=== PATIENT | female | born 1950 | race Caucasian/White ===

== ENCOUNTER 2016-09-21 23:06 | Inpatient (IN) ==
[2016-09-21] MEDS ORDERED: Ipratropium/Albuterol Neb 3 ML IH ONE (23:09)
--- NOTE | 2016-09-21 23:21 | Emergency Department Note ---
Disposition Clinical Impression: HCAP (healthcare-associated pneumonia), Acute exacerbation of chronic obstructive pulmonary disease (COPD) Disposition: Admitted As Inpatient Time of Disposition: 05:26 SOB HPI - General Chief Complaint: ED Shortness of Breath/Dyspnea Stated Complaint: INDIRA Time Seen by Provider: 09/21/16 23:08 Source: patient Limitations: no limitations Nursing Notes Reviewed: Yes Vital Signs Reviewed: Yes - History of Present Illness 65-year-old female past medical history of lung cancer S/P lobectomy, COPD on 4 L home oxygen presents to the ED via EMS for worsening difficulty in breathing. Ongoing for the past 3 weeks worse today. Per EMS she was found to be on 10L NC with increased work of breathing. Reports sitting on the cough and got short of breath. Denies any recent fever or chills. Episodes of chest pain over the past 2 weeks which she reports is due to anxiety. Denies any history of cardiac ischemic disease. History of thoracic aneurysm. Denies any recent travel or illness. Last hospitalized beginning of this year for pneumonia for 2 weeks at [place]. - Related Data Home Medications Medication Instructions Recorded Confirmed Albuterol Neb [Proventil Neb] 2.5 mg IH Q4HR 03/05/16 05/07/16 Budesonide/Formoterol 160/4.5 2 puff IH BIDR 03/05/16 05/07/16 [Symbicort 160/4.5] Ipratropium/Albuterol Sulfate 2 puff IH DAILY 03/05/16 05/07/16 [Combivent Respimat Inhal [place]] Levothyroxine Sodium [Tirosint] 50 mcg PO DAILY 03/05/16 05/07/16 Metoprolol [Lopressor] 25 mg PO BID 03/05/16 05/07/16 Previous Rx's Medication Instructions Recorded Tiotropium [Spiriva] 18 mcg IH DAILYR #1 inh 03/12/16 TraMADol [Ultram] 50 mg PO Q8HR PRN #15 tablet 03/12/16 Alprazolam [Xanax 0.25 MG Tablet] 0.25 mg PO TID PRN 7 Days 04/21/16 Amlodipine [Norvasc] 5 mg PO DAILY #30 tablet 05/10/16 Levofloxacin 500 mg PO DAILY #10 tablet 05/10/16 Pravastatin Sodium [Pravachol] 40 mg PO HS #30 tablet 05/10/16 PredniSONE 60 mg PO DAILY 12 Days 05/10/16 Ticagrelor [Brilinta] 90 mg PO BID #30 tablet 05/10/16 Allergies Allergy/AdvReac Type Severity Reaction Status Date / Time clopidogrel [From Plavix] Allergy Itching Verified 09/11/15 15:17 codeine Allergy Itching Verified 09/11/15 15:17 All systems ED: reviewed and negative except as stated. Constitutional: Denies: fever, chills Cardiovascular: Reports: chest pain Respiratory: Reports: cough, dyspnea Gastrointestinal: Denies: abdominal pain, nausea, vomiting Neurological: Denies: headache, weakness Psychiatric: Reports: anxiety Past Medical History - Past Medical History Attestation: Yes The following information was validated with the patient. Source: patient Medical history: Reports: cancer, COPD, coronary artery disease, GI bleed, hypertension, other Surgical history: Reports: appendectomy, cancer surgery, cholecystectomy, SHERICE/ BSO, other Psychiatric history: Reports: anxiety PLATE STACKER history: Reports: no PLATE STACKER history - Social History Smoking Status: Current every day smoker Smokeless Tobacco Status: No Alcohol use: Reports: none Drug use: Reports: none Physical Exam - General Limitations: no limitations General appearance: alert, in no apparent distress - Head Head exam: atraumatic, normocephalic, normal inspection - Eye Eye exam: Present: normal appearance, PERRL, EOMI - ENT ENT exam: other (on CPAP) - Neck Neck exam: Present: normal inspection, full ROM, trachea midline - Chest Chest inspection: Present: normal inspection, symmetric chest wall rise. Absent : tenderness - Respiratory Respiratory exam: Present: respiratory distress (on CPAP), wheezes, other ( COARSE breath sounds bilaterally) - Cardiovascular Cardiovascular exam: Present: regular rate, normal rhythm, normal heart sounds - Abdominal Exam Abdominal exam: Present: soft, Non-Tender, normal bowel sounds. Absent: tenderness, distention, guarding, rebound, rigidity - Extremities Exam Extremities exam: Present: normal inspection, full ROM, normal capillary refill. Absent: tenderness, pedal edema, calf tenderness - Neurological Exam Neurological exam: Present: alert, oriented X3 - Psychiatric Psychiatric exam: Present: normal affect, normal mood - Skin Skin exam: Present: warm, dry, intact, normal color Course Course Narrative: 65-year-old female history of lung cancer and COPD on 4 L home oxygenation presents a DVD with shortness of breath. She initially was found by EMS with increased worker breathing shortness of breath on 10 L nasal cannula satting 60% . She was placed on CPAP via EMS saturation improvements to 90s. After 3 continuous tuna treatments patients oxygenation in the 87%. Patient has course breath sounds bilaterally. Denies any history of blood clots. Concern for COPD exacerbation and possible pneumonia. We will get a septic workup with blood cultures and urine cultures. Chest x-ray ordered. - Reevaluation(s) Reevaluation #1: Patient continues to be on CPAP. She is tolerating it well. Oxygen saturation remains in the low 90s. Leukocytosis 15. Chest x-ray interpreted by radiologist and reviewed by myself reveals right mid to lower pneumonia. Concern for PE and infarction is less likely with CXR findings and CT to R/O PE is not warranted. Patient was recently hospitalized within the last 3 months. Impression healthcare associated pneumonia. Will treat with triple antibiotics Zosyn, vancomycin, Levaquin. Time: 00:42 - Consultations Consultation #1: Spoke with henny Dickinson to admit for HCAP. On Vanc, Zosyn, and Levaquin. Patient is currently on BiPAP 12/60%. Vital Signs Temperature 0 F L 09/21/16 23:08 Pulse Rate 84 09/21/16 23:08 Respiratory Rate 24 09/21/16 23:08 Blood Pressure 143/103 09/21/16 23:08 O2 Sat by Pulse Oximetry 100 09/21/16 23:08 Temperature 0 F L 09/21/16 23:08 Pulse Rate 79 09/21/16 23:53 Respiratory Rate 0 09/22/16 05:09 Blood Pressure 0/0 09/22/16 05:09 O2 Sat by Pulse Oximetry 97 09/22/16 00:11 Oxygen Delivery Oxygen Delivery Bipap Shortness of Breath/Dyspnea - Medical Records Medical records reviewed: Yes I reviewed the patient's medical records. - Lab Data Lab results reviewed: Yes I reviewed the patient's lab results. Result diagrams: 09/21/16 23:40 09/21/16 23:40 Lab Results 09/21/16 09/21/16 09/21/16 Range/Units 23:40 23:40 23:40 WBC 15.0 H (4.3-11.1) K/mcL RBC 3.49 L (3.82-4.97) M/mcL Hgb 9.9 L (11.5-15.4) g/dL Hct 33.0 L (35.3-44.9) % MCV 94.6 (83.0-100.0) fL MCH 28.4 (28.0-33.3) pg MCHC 30.0 L (31.6-35.5) g/dL RDW 14.6 H (11.5-14.5) % Plt Count 352 (140-400) K/mcL MPV 9.1 L (9.4-12.4) fL Immature Gran % 1.1 (0-4) % Seg Neutrophils % 86.7 % Lymphocytes % 5.6 % Monocytes % 4.2 % Eosinophils % 2.1 % Basophils % 0.3 % Neutrophils # 13.0 H (1.6-8.9) K/mcL Lymphocytes # 0.8 (0.6-4.6) K/mcL Monocytes # 0.6 (0.0-1.3) K/mcL Eosinophils # 0.3 (0.0-0.6) K/mcL Basophils # 0.1 (0.0-0.2) K/mcL VBG pH (7.32-7.42) pH Units VBG pCO2 (41-51) mmHg VBG pO2 (25-40) mmHg VBG HCO3 (21-27) mEq/L Sodium 136 (136-145) mEq/L Potassium 4.2 (3.5-4.5) mEq/L Chloride 94 L (98-109) mEq/L Carbon Dioxide 35 H (19-29) mEq/L BUN 7 (7-20) mg/dL Creatinine 0.75 (0.57-1.11) mg/dL Est GFR ( Amer) > 60 (> 60) Est GFR (Non-Af Amer) > 60 (> 60) BUN/Creatinine Ratio 9 (6-26) Glucose 168 H (70-99) mg/dL Calculated Osmolality 284 (280-300) Calcium 8.7 (8.6-10.8) mg/dL Troponin I 0.01 (0-0.03) ng/mL 09/21/16 Range/Units 23:40 WBC (4.3-11.1) K/mcL RBC (3.82-4.97) M/mcL Hgb (11.5-15.4) g/dL Hct (35.3-44.9) % MCV (83.0-100.0) fL MCH (28.0-33.3) pg MCHC (31.6-35.5) g/dL RDW (11.5-14.5) % Plt Count (140-400) K/mcL MPV (9.4-12.4) fL Immature Gran % (0-4) % Seg Neutrophils % % Lymphocytes % % Monocytes % % Eosinophils % % Basophils % % Neutrophils # (1.6-8.9) K/mcL Lymphocytes # (0.6-4.6) K/mcL Monocytes # (0.0-1.3) K/mcL Eosinophils # (0.0-0.6) K/mcL Basophils # (0.0-0.2) K/mcL VBG pH 7.30 L (7.32-7.42) pH Units VBG pCO2 84 H (41-51) mmHg VBG pO2 47 H (25-40) mmHg VBG HCO3 41.3 H (21-27) mEq/L Sodium (136-145) mEq/L Potassium (3.5-4.5) mEq/L Chloride (98-109) mEq/L Carbon Dioxide (19-29) mEq/L BUN (7-20) mg/dL Creatinine (0.57-1.11) mg/dL Est GFR ( Amer) (> 60) Est GFR (Non-Af Amer) (> 60) BUN/Creatinine Ratio (6-26) Glucose (70-99) mg/dL Calculated Osmolality (280-300) Calcium (8.6-10.8) mg/dL Troponin I (0-0.03) ng/mL - Radiology Data Radiology results reviewed: Yes I reviewed the patient's radiology results. Images interpreted by radiologists and review by myself consistent with pneumonia Chest X-Ray 09/21/16 23:09 IMPRESSION: Persistent and increased parenchymal disease right mid and lower lobe. This could represent chronic or recurring pneumonia and is superimposed upon moderate COPD with fibrosis and severe emphysema greater on the right. Some of this could be due to compressive affects from severe emphysema as well. D/ / Nilson Mckeon MD / Nilson Mckeon MD Interpreting Provider: Nilson Mckeon MD - EKG Data EKG attestation: Yes I reviewed and interpreted this EKG. Attestation Statement - Attestation Attestation: I examined this patient and my medical decision-making was reviewed with the Resident Physician. I agree with the documented findings, disposition and treatment plan as described except to the extent set forth below. Cough, SOB. Sig improvement with CPAP and nebs provided by EMS. Has coarse BS b /l w wheezing. CXR c/w pneumonia, which fits the clinical picture. I do not suspect a PE, and given her CXR findings which would be difficult to attribute to infarction rather than pneumonia, I am comfortable with the dx of health- care associated pneumonia and with my conclusion that a CTPA is not warranted.
[2016-09-21 23:46] LABS: VBG HCO3 41.3 mEq/L (21-27); VBG PH 7.3 pH Units (7.32-7.42)
[2016-09-21 23:48] LABS: Basophils # 0.1 K/mcL (0.0-0.2); Basophils % 0.3 %; Eosinophils # 0.3 K/mcL (0.0-0.6); Eosinophils % 2.1 %; Hemoglobin 9.9 g/dL (11.5-15.4); Immature Granulocytes % 1.1 % (0-4); Lymphocytes # 0.8 K/mcL (0.6-4.6); Lymphocytes % 5.6 %; Mean Corpuscular Hemoglobin 28.4 pg (28.0-33.3); Mean Corpuscular Volume 94.6 fL (83.0-100.0); Mean Platelet Volume 9.1 fL (9.4-12.4); Monocytes # 0.6 K/mcL (0.0-1.3); Monocytes % 4.2 %; Platelet Count 352 K/mcL (140-400); Red Blood Count 3.49 M/mcL (3.82-4.97); Red Cell Distribution Width 14.6 % (11.5-14.5); Segmented Neutrophils % 86.7 %
[2016-09-21 23:59] LABS: BUN/Creatinine Ratio 9 (6-26); Blood Urea Nitrogen 7 mg/dL (7-20); Calcium 8.7 mg/dL (8.6-10.8); Carbon Dioxide 35 mEq/L (19-29); Chloride 94 mEq/L (98-109); Glucose 168 mg/dL (70-99); Osmolality,Calculated 284 (280-300); Potassium 4.2 mEq/L (3.5-4.5); Sodium 136 mEq/L (136-145); eGFR For African Americans > 60 (> 60); eGFR For Non-African Americans > 60 (> 60)
[2016-09-22] MEDS ORDERED: *HR* LORazepam 2 MG/ML VIAL IVP ONE (00:05)
[2016-09-22] MEDS ORDERED: Piperacillin/Tazobactam 4.5 GM in D5% in Water (Mini-Bag+) 100 ML IVPB ONE (00:40)
[2016-09-22] MEDS ORDERED: Vancomycin 750 MG in D5% in Water 250 ML IVPB ONE (00:40)
[2016-09-22] MEDS ORDERED: Levofloxacin 750 MG/150 ML 750 MG/150 ML BAG IVPB ONE (00:40)
--- NOTE | 2016-09-22 04:52 | Internal Med History&Physical ---
<Fabricio Hdz - Last Filed: 09/22/16 04:49> Date of Encounter: 09/22/16 Time of Encounter: 04:50 Assessment and Plan (1) Acute and chronic respiratory failure Current visit: No Status: Acute Likely secondary to COPD exacerbation and likely recurrent HCAP Continue her on BiPAP as she is requiring FiO2 of 60% to maintain saturations above 90% She will be transitioned back to nasal cannula once more stable Obtain CT chest without contrast in case she does have recurrence of her lung cancer Possible pulmonary consult depending on results of CT scan Qualifiers: Respiratory failure complication: hypoxia and hypercapnia Qualified Code(s) : J96.21 - Acute and chronic respiratory failure with hypoxia; J96.22 - Acute and chronic respiratory failure with hypercapnia (2) Acute exacerbation of chronic obstructive pulmonary disease (COPD) Current visit: No Status: Acute Given her increased oxygen demands, increased sputum production, she likely has exacerbation of her COPD Will start her on IV steroids with Solumedrol 40 mg q8hr Continue her home breathing treatments as scheduled along with PRN nebulizers and BiPAP overnight, will try to transition her back to NC once more stable (3) HCAP (healthcare-associated pneumonia) Current visit: No Status: Acute She states she was hospitalized with pneumonia in the beginning of the year, at least within 90 days which qualifies her for HCAP Right lower lobe consolidation seen on CXR was also present in last CXR in 2015 suggesting underlying scarring or anatomical dysfunction causing this recurrence She was given one dose of Zosyn while in ED, will continue along with Vancomycin and Levaquin Collect sputum and blood cultures, await sensitivities prior to de-escalation (4) Hypertension Current visit: No Status: Acute Blood pressures upon admission Will continue home Norvasc and Metoprolol Qualifiers: Hypertension type: essential hypertension Qualified Code(s): I10 - Essential (primary) hypertension (5) CAD (coronary artery disease) Current visit: No Status: Chronic Stable, no current chest pain Will continue home dose of ASA, Brillinta, Metoprolol, and Pravastatin Qualifiers: Coronary Disease-Associated Artery/Lesion type: [place] artery [place] vs. transplanted heart: [place] heart Associated angina: without angina Qualified Code(s): I25.10 - Atherosclerotic heart disease of [place] coronary artery without angina pectoris (6) DVT prophylaxis Current visit: No Status: Acute Lovenox Internal Medicine - H&P: HPI Chief complaint: shortness of breath Admitted From: Home Plans for Post Hospital Care: Home History of present illness: Ms. Mckeon is a 65 year old female who presents to the emergency department with a 3 week history of progressive shortness of breath. She said this has worsened severely yesterday and she came to the ED. She states that she has been having productive cough with brown sputum during this time also claims to have a small amount of blood tinged sputum. She does endorse shortness of breath at rest but has improved since coming into the emergency department. She also complains of chronic constipation and has had nausea recently. She does have a history of COPD and is on 4 L of oxygen throughout the day and has been taking her inhalers which have not really helped her. She was diagnosed with lung cancer roughly 3 or 4 years ago, and had a lobectomy on the right side. She was previously on chemotherapy and radiation but has not had any treatments for over a year. Patient currently denies any pain, vomiting, fever. Past Med Surg Social Fam HX - Past Medical History Medical history: cancer, COPD, coronary artery disease, GI bleed, hypertension, other Psychiatric history: anxiety - Past Surgical History Surgical History: appendectomy, cancer surgery, cholecystectomy, SHERICE/BSO, other - Social History Smoking Status: Current every day smoker Smokeless Tobacco Status: No Alcohol use: none Drug use: none - Family History Mother Adopted: No Living Status: Hx Family Cardiac Disorders: No Hx Family Respiratory Disorders: Yes (COPD) Hx Family Cancer: No Hx Family GI Disorders: No Hx Family Endocrine Disorder: No Hx Family Neuromuscular Disorders: No Hx Family Neurologic Disorders: No Hx Family HEENT Disorders: No Hx Family Autoimmune Disorders: No Father Adopted: No Living Status: Hx Family Cardiac Disorders: No Hx Family Respiratory Disorders: No Hx Family Cancer: No Hx Family GI Disorders: No Hx Family Endocrine Disorder: No Hx Family Neuromuscular Disorders: No Hx Family Neurologic Disorders: No Hx Family HEENT Disorders: No Hx Family Autoimmune Disorders: No Sister Adopted: No Living Status: Still Living Hx Family Cardiac Disorders: No Hx Family Respiratory Disorders: No Hx Family Cancer: No Hx Family GI Disorders: No Hx Family Endocrine Disorder: No Hx Family Neuromuscular Disorders: No Hx Family Neurologic Disorders: Yes (MS) Hx Family HEENT Disorders: No Hx Family Autoimmune Disorders: No Brother Adopted: No Living Status: Still Living Hx Family Cardiac Disorders: No Hx Family Respiratory Disorders: No Hx Family Cancer: No Hx Family GI Disorders: No Hx Family Endocrine Disorder: No Hx Family Neuromuscular Disorders: No Hx Family Neurologic Disorders: No Hx Family HEENT Disorders: No Hx Family Autoimmune Disorders: No Internal Medicine - H&P: Meds Albuterol Neb [Proventil Neb] 2.5 mg IH Q4HR 03/05/16 [History] Budesonide/Formoterol 160/4.5 [Symbicort 160/4.5] 2 puff IH BIDR 03/05/16 [ History] Ipratropium/Albuterol Sulfate [Combivent Respimat Inhal [place]] 2 puff IH DAILY 03/05/16 [History] Levothyroxine Sodium [Tirosint] 50 mcg PO DAILY 03/05/16 [History] Metoprolol [Lopressor] 25 mg PO BID 03/05/16 [History] Tiotropium [Spiriva] 18 mcg IH DAILYR #1 inh 03/12/16 [Rx] TraMADol [Ultram] 50 mg PO Q8HR PRN #15 tablet 03/12/16 [Rx] Alprazolam [Xanax 0.25 MG Tablet] 0.25 mg PO TID PRN 7 Days 04/21/16 [Rx] Amlodipine [Norvasc] 5 mg PO DAILY #30 tablet 05/10/16 [Rx] Levofloxacin 500 mg PO DAILY #10 tablet 05/10/16 [Rx] Pravastatin Sodium [Pravachol] 40 mg PO HS #30 tablet 05/10/16 [Rx] PredniSONE 60 mg PO DAILY 12 Days 05/10/16 [Rx] Ticagrelor [Brilinta] 90 mg PO BID #30 tablet 05/10/16 [Rx] Allergies clopidogrel [From Plavix] Allergy (Verified 09/22/16 08:27) Itching codeine Allergy (Verified 09/22/16 08:27) Itching All Systems PM: A 10-system review of systems was performed and is negative for pertinent findings except as documented above in the HPI. - Constitutional Constitutional: weakness, no chills, no fever(s), no night sweats - EENT Eyes: no change in vision, no discharge, no pain, no photophobia Ears: no ear discharge, no ear pain, no tinnitus Nose, mouth and throat: no dysphagia, no nasal discharge, no neck pain, no sore throat - Cardiovascular Cardiovascular ROS IM: dyspnea, no chest pain, no diaphoresis, no lightheadedness, no palpitations, no syncope - Respiratory Respiratory: dyspnea, hemoptysis, dyspnea on exertion, wheezing, pain with cough , no cough, no excessive phlegm production - Gastrointestinal Gastrointestinal: constipation, nausea, no abdominal pain, no diarrhea, no hematemesis, no hematochezia, no melena, no vomiting - Genitourinary Genitourinary: no change in urinary stream, no dysuria, no flank pain, no hematuria - Musculoskeletal Musculoskeletal ROS IM: no numbness, no tingling - Integumentary Integumentary IM: no rash, no unusual bruising - Neurological Neurological ROS: no confusion, no convulsions, no focal weakness, no numbness, no tingling, no tremor(s) - Hematologic/Lymphatic Hematologic/Lymphatic: no easy bruising - Constitutional Vitals: Temp Pulse Resp BP Pulse Ox 0 F L 79 24 109/81 97 09/21/16 23:08 09/21/16 23:53 09/21/16 23:53 09/21/16 23:53 09/22/16 00:11 General appearance: Present: cooperative, A&O X 3, pleasant, no acute distress ( breathing comfortably on BiPAP), answers questions appropriately - Head Head exam: Present: atraumatic, normocephalic - Eye Eye exam: Present: PERRL, conjuntiva pink, sclera anicteric - Neck Neck exam general surgery: Present: supple, trachea midline. Absent: lymphadenopathy - Respiratory Respiratory exam: Present: decreased breath sounds (on RUL), wheezes. Absent: accessory muscle use, rales, rhonchi - Cardiovascular Cardiovascular exam: Present: RRR, +S1, +S2. Absent: diastolic murmur, gallop, rubs, systolic murmur - GI/Abdominal GI/Abdominal exam: Present: normal bowel sounds, soft, no peritoneal signs. Absent: distended, tenderness - Extremities Exam Extremities exam: Present: warm, radial pulses palpable and symetrical. Absent : calf tenderness, cyanotic, pedal edema - Neurological Exam Neurological exam: Present: alert, oriented X3, no focal deficits. Absent: facial droop, speech deficit - Skin Skin exam: Present: dry, intact Internal Med - H&P Results - Labs CBC & Chem 7: 09/21/16 23:40 09/21/16 23:40 Labs: Short CBC 09/21/16 Range/Units 23:40 WBC 15.0 H (4.3-11.1) K/mcL Hgb 9.9 L (11.5-15.4) g/dL Hct 33.0 L (35.3-44.9) % Plt Count 352 (140-400) K/mcL Neutrophils # 13.0 H (1.6-8.9) K/mcL BMP 09/21/16 23:40 Sodium 136 Potassium 4.2 Chloride 94 L Carbon Dioxide 35 H BUN 7 Creatinine 0.75 Glucose 168 H Calcium 8.7 Cardiac Enzymes 09/21/16 Range/Units 23:40 Troponin I 0.01 (0-0.03) ng/mL - ABG Interpretation ABG results: 09/21/16 23:40 VBG pH 7.30 L VBG pCO2 84 H VBG pO2 47 H VBG HCO3 41.3 H - Impressions ITS Impressions Chest X-Ray 09/21/16 23:09 IMPRESSION: Persistent and increased parenchymal disease right mid and lower lobe. This could represent chronic or recurring pneumonia and is superimposed upon moderate COPD with fibrosis and severe emphysema greater on the right. Some of this could be due to compressive affects from severe emphysema as well. D/ / Nilson Mckeon MD / Nilson Mckeon MD Interpreting Provider: Nilson Mckeon MD <Jesse Mcintosh R - Last Filed: 09/22/16 09:24> Date of Encounter: 09/22/16 Internal Medicine - H&P: HPI History of present illness: Ms. Mckeon is a 65 year old female All Systems PM: A 10-system review of systems was performed and is negative for pertinent findings except as documented above in the HPI. - Constitutional Vitals: Temp Pulse Resp BP Pulse Ox 98.7 F 100 18 167/75 98 09/22/16 06:50 09/22/16 06:50 09/22/16 08:20 09/22/16 06:50 09/22/16 08:20 Internal Med - H&P Results - Labs CBC & Chem 7: 09/22/16 05:30 09/22/16 05:30 - Attending Attestation I performed a history and physical examination of the patient and discussed his management with the Resident/Location Worker (Dr Stockton). I reviewed the residents note and agree with the documented findings and plan of care, with additions as below. 65 Y/F With History of COPD, chronic respiratory failure on home oxygen, prior history of lung cancer status post right lobectomy, CAD. She presents with worsening shortness of breath and cough with sputum production. She required BiPAP therapy in the ER. O/E: B/L wheeze present Chest x-ray reported a persistent and increased parenchymal disease in the right middle and lower lobes. This could represent chronic or recurring pneumonia superimposed on moderate COPD with fibrosis and severe emphysema greater on the right. Leucocytosis present. A/P: - Pneumonia / HCAP: Suspect recurrent pneumonia (pt apparently completed the course of antibiotics for pneumonia recently - we will obtain records from [facility] in [place]). I have a concern that patient may have recurrent pneumonia, and will need to exclude endobronchial lesion (with possible post obstructive pneumonia). Will obtain CT chest. Treat with levofloxacin, zosyn and vancomycin. - Acute exacerbation of COPD: Continue antibiotics, bronchodilators and methylprednisolone - Acute on chronic respiratory failure: Patient needed BiPAP therapy in the emergency department. Continue supplemental oxygen as tolerated. - Nicotine dependence: Nicotine patches
[2016-09-22] MEDS ORDERED: Vancomycin 750 MG VIAL IVPB ONE (05:21)
[2016-09-22] MEDS ORDERED: D5% in Water 250 ML ONE (05:22)
[2016-09-22] MEDS ORDERED: Albuterol 2.5 MG/3 ML NEBULIZER IH PRN (06:36)
[2016-09-22 06:40] LABS: Basophils % 0.1 %; Eosinophils % 0.1 %; Hematocrit 30.8 % (35.3-44.9); Hemoglobin 9.4 g/dL (11.5-15.4); Immature Platelets 2.8 % (1.1-6.1); Lymphocytes # 0.3 K/mcL (0.6-4.6); Lymphocytes % 1.8 %; Mean Corpuscular HGB Conc 30.5 g/dL (31.6-35.5); Mean Corpuscular Hemoglobin 28.7 pg (28.0-33.3); Mean Corpuscular Volume 93.9 fL (83.0-100.0); Mean Platelet Volume 9.4 fL (9.4-12.4); Monocytes # 0.1 K/mcL (0.0-1.3); Monocytes % 0.7 %; Neutrophils # 13.1 K/mcL (1.6-8.9); Platelet Count 404 K/mcL (140-400); Red Blood Count 3.28 M/mcL (3.82-4.97); Red Cell Distribution Width 14.6 % (11.5-14.5); Segmented Neutrophils % 96.3 %
[2016-09-22 07:14] LABS: BUN/Creatinine Ratio 13 (6-26); Blood Urea Nitrogen 9 mg/dL (7-20); Calcium 8.8 mg/dL (8.6-10.8); Carbon Dioxide 34 mEq/L (19-29); Chloride 94 mEq/L (98-109); Glucose 118 mg/dL (70-99); Osmolality,Calculated 282 (280-300); Potassium 4.2 mEq/L (3.5-4.5); Sodium 136 mEq/L (136-145); eGFR For African Americans > 60 (> 60); eGFR For Non-African Americans > 60 (> 60)
[2016-09-22] MEDS: Budesonide/Formoterol 160/4.5 MDI IH SCH ×2 (08:18→20:17)
[2016-09-22] MEDS ORDERED: *HR* LORazepam 0.5 MG TABLET PO ONE ×2 (08:38→20:17)
[2016-09-22] MEDS: Aspirin 81 MG TAB.CHEW PO SCH (09:18)
[2016-09-22] MEDS: amLODIPine 5 MG TABLET PO SCH (09:19)
[2016-09-22] MEDS: MethylPREDNISolone 40 MG/ML VIAL IVP SCH ×3 (09:19→23:20)
[2016-09-22] MEDS: *HR* Enoxaparin 40 MG/0.4 ML SYRINGE SQ SCH ×2 (09:19→09:25)
[2016-09-22] MEDS: Piperacillin/Tazobactam 3.375 GM in D5% in Water (Mini-Bag+) 100 ML IVPB SCH ×2 (09:20→16:33)
[2016-09-22] MEDS: Nicotine 21 MG PATCH.TD24 TD SCH (09:21)
[2016-09-22] MEDS: *HR* Ticagrelor 90 MG TABLET PO SCH ×2 (09:23→20:31)
[2016-09-22] MEDS ORDERED: Ipratropium/Albuterol Neb 3 ML IH SCH (10:00)
[2016-09-22] MEDS: Ipratropium/Albuterol Neb 3 ML IH SCH ×5 (11:26→23:52)
--- NOTE | 2016-09-22 14:59 | Event Note ---
<CornelleK Bassett - Last Filed: 09/22/16 14:54> Date of Encounter: 09/22/16 Time of Encounter: 10:00 64-year-old female history of COPD, tobacco abuse, lung cancer presents with chief complaint of two-week history of productive cough, worsening shortness of breath. Patient states she had blood tinged brown productive sputum. Chest x- ray showed right lower lobe consolidation and right middle lobe consolidation. Patient was diagnosed at age And acute on chronic respiratory failure. This morning she states that her shortness of breath is improved. She denies any chest pain, palpitation, nausea, vomiting, diarrhea. She continues to have productive sputum. Gen: Alert and oriented 3 Heart: Regular rate and rhythm no murmur Lungs: Diffuse wheezing and rhonchi bilaterally. Rales right basilar. Abdomen: Soft nondistended nontender normal bowel sounds Extremities: Absent pedal edema, peripheral pulses intact Plan is to continue vancomycin and Levaquin and await sensitivities for blood cultures prior to de-escalation. We will also continue patient on albuterol nebulizer, Symbicort, steroids. Patient has a history of coronary artery disease he will continue her on [place], metoprolol and aspirin Lovenox. Continue home amlodipine for blood pressure management. <Uriel Garcia - Last Filed: 09/22/16 16:59> Date of Encounter: 09/22/16 Ms. Mckeon was admitted earlier today for acute exac COPD and pneumonia. She is beginning to feel a little better. Plan as above. Continue home meds as well.
--- NOTE | 2016-09-22 19:19 | Electrocardiograph Report ---
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
[2016-09-22] MEDS: Levofloxacin 500 MG/100 ML 500 MG/100 ML BAG IVPB SCH (23:20)
[2016-09-23] MEDS: Piperacillin/Tazobactam 3.375 GM in D5% in Water (Mini-Bag+) 100 ML IVPB SCH ×3 (00:32→17:25)
[2016-09-23 03:41] LABS: Basophils % 0.1 %; Hematocrit 28.6 % (35.3-44.9); Immature Granulocytes % 2.3 % (0-4); Immature Platelets 3.1 % (1.1-6.1); Lymphocytes # 0.3 K/mcL (0.6-4.6); Mean Corpuscular HGB Conc 31.5 g/dL (31.6-35.5); Mean Corpuscular Hemoglobin 28.7 pg (28.0-33.3); Mean Corpuscular Volume 91.1 fL (83.0-100.0); Mean Platelet Volume 8.9 fL (9.4-12.4); Monocytes # 0.4 K/mcL (0.0-1.3); Monocytes % 2.1 %; Neutrophils # 16.2 K/mcL (1.6-8.9); Platelet Count 434 K/mcL (140-400); Red Blood Count 3.14 M/mcL (3.82-4.97); Red Cell Distribution Width 14.6 % (11.5-14.5); Segmented Neutrophils % 93.5 %
[2016-09-23] MEDS: Ipratropium/Albuterol Neb 3 ML IH SCH ×6 (03:52→23:01)
[2016-09-23 04:17] LABS: BUN/Creatinine Ratio 18 (6-26); Blood Urea Nitrogen 14 mg/dL (7-20); Calcium 8.6 mg/dL (8.6-10.8); Carbon Dioxide 31 mEq/L (19-29); Chloride 92 mEq/L (98-109); Glucose 134 mg/dL (70-99); Osmolality,Calculated 274 (280-300); Potassium 3.8 mEq/L (3.5-4.5); Sodium 131 mEq/L (136-145); eGFR For African Americans > 60 (> 60); eGFR For Non-African Americans > 60 (> 60)
[2016-09-23] MEDS: Ibuprofen 400 MG TABLET PO PRN (04:27)
[2016-09-23] MEDS ORDERED: Vancomycin 750 MG in D5% in Water 250 ML IVPB SCH ×2 (05:00→05:30)
[2016-09-23] MEDS: *HR* Enoxaparin 40 MG/0.4 ML SYRINGE SQ SCH (06:01)
[2016-09-23] MEDS: Budesonide/Formoterol 160/4.5 MDI IH SCH ×2 (07:42→20:00)
--- NOTE | 2016-09-23 08:57 | Internal Med Progress Note ---
<Ke Sarabia - Last Filed: 09/23/16 09:09> Date of Encounter: 09/23/16 Time of Encounter: 08:55 - Assessment and plan (1) Acute and chronic respiratory failure Current Visit: No Status: Acute Assessment and plan: 64-year-old female with a history of lung cancer, tobacco abuse, COPD is admitted for acute on chronic respiratory failure. This is most likely secondary to COPD exacerbation HCAP. Currently patient is undergoing BiPAP treatment. She is tolerating it well. She continues to be on [address] chest shows patchy consolidation in the right lower lobe. Patient also has new compression fracture at T6. There is no evidence of recurrence of lung cancer. Patient says her cough has resolved and sob has improved. Lung exam shows decreased breath sounds in right upper lobe with rales in right lower lobe and b/l wheezing. We will continue treating patient for COPD exacerbation and HCAP. Qualifiers: Respiratory failure complication: hypoxia and hypercapnia Qualified Code(s) : J96.21 - Acute and chronic respiratory failure with hypoxia; J96.22 - Acute and chronic respiratory failure with hypercapnia (2) Acute exacerbation of chronic obstructive pulmonary disease (COPD) Current Visit: Yes Status: Acute Assessment and plan: Patient came in with increased sputum production and worsening dyspnea. She also had increase in her oxygen demand. Currently will continue her on steroids , inhalers and nebulizer treatment. Continue oxygen supplementation. (3) HCAP (healthcare-associated pneumonia) Current Visit: Yes Status: Acute Assessment and plan: Patient was hospitalized within 90 days of this admission for pneumonia. This is most likely bacterial. CT chest shows right lower lobe consolidation. Chest x-ray in April 2016 shows scarring of the right lower lobe which could cause recurrence of her pneumonia. We will continue her on think so Iraheta and Levaquin. Sputum cultures and blood cultures are still pending. We will de-escalate antibiotics as results come back. (4) DVT prophylaxis Current Visit: No Status: Acute Assessment and plan: Continue Lovenox (5) Hypertension Current Visit: No Status: Acute Assessment and plan: Patient has a history of hypertension. Her blood pressures and very well controlled since admission. We will continue her home amlodipine. Qualifiers: Hypertension type: essential hypertension Qualified Code(s): I10 - Essential (primary) hypertension (6) CAD (coronary artery disease) Current Visit: No Status: Chronic Assessment and plan: Patient denies chest pain, palpitations. Cardiovascular exam within normal limits. Continue aspirin, Brilinta metoprolol, statin. Qualifiers: Coronary Disease-Associated Artery/Lesion type: [place] artery [place] vs. transplanted heart: [place] heart Associated angina: without angina Qualified Code(s): I25.10 - Atherosclerotic heart disease of [place] coronary artery without angina pectoris (7) Anxiety Current Visit: No Status: Chronic Assessment and plan: Patient says she is very anxious today and this is causing her to have a headache. We will start patient on hydroxazine. - Subjective Interval history: This morning patient says her shortness of breath is improved. She does complain of new onset headache and anxiety. She had no acute overnight events. - Constitutional Vitals: Temp Pulse Resp BP Pulse Ox 98.6 F 84 18 136/89 97 09/23/16 07:30 09/23/16 07:30 09/23/16 07:39 09/23/16 07:30 09/23/16 07:39 General appearance: Present: cooperative, A&O X 3, pleasant, answers questions appropriately - Head Head exam: Present: atraumatic, normocephalic - Eye Eye exam: Present: PERRL, conjuntiva pink, sclera anicteric - Neck Neck exam general surgery: Present: supple, trachea midline. Absent: lymphadenopathy - Respiratory Respiratory exam: Present: decreased breath sounds (Right lobe), rales (Right basilar), wheezes (Bilateral). Absent: accessory muscle use, rhonchi - Cardiovascular Cardiovascular exam: Present: RRR, +S1, +S2. Absent: diastolic murmur, gallop, rubs, systolic murmur - GI/Abdominal GI/Abdominal exam: Present: normal bowel sounds, soft, no peritoneal signs. Absent: distended, tenderness - Extremities Exam Extremities exam: Present: warm, radial pulses palpable and symetrical. Absent : calf tenderness, cyanotic, pedal edema - Neurological Exam Neurological exam: Present: CN II-XII intact, oriented X3, no focal deficits. Absent: pronater drift, facial droop, speech deficit - Skin Skin exam: Present: dry, intact Internal Medicine: Result - Labs CBC & Chem 7: 09/23/16 03:30 09/23/16 03:30 Labs: Short CBC 09/23/16 Range/Units 03:30 WBC 17.3 H (4.3-11.1) K/mcL Hgb 9.0 L (11.5-15.4) g/dL Hct 28.6 L (35.3-44.9) % Plt Count 434 H (140-400) K/mcL Neutrophils # 16.2 H (1.6-8.9) K/mcL BMP 09/23/16 03:30 Sodium 131 L Potassium 3.8 Chloride 92 L Carbon Dioxide 31 H BUN 14 Creatinine 0.78 Glucose 134 H Calcium 8.6 Consult Discharge Plan - Plan Referrals: NO,PCP [Primary Care Provider] - <Uriel Garcia - Last Filed: 09/23/16 14:43> Date of Encounter: 09/23/16 - Assessment and plan (1) Acute and chronic respiratory failure Current Visit: No Status: Acute Qualifiers: Respiratory failure complication: hypoxia and hypercapnia Qualified Code(s) : J96.21 - Acute and chronic respiratory failure with hypoxia; J96.22 - Acute and chronic respiratory failure with hypercapnia (2) Acute exacerbation of chronic obstructive pulmonary disease (COPD) Current Visit: Yes Status: Acute (3) Pneumonia Current Visit: Yes Status: Suspected Qualifiers: Pneumonia type: due to other aerobic Gram-negative bacteria Laterality: right Lung location: middle lobe of lung Qualified Code(s): J15.6 - Pneumonia due to other aerobic Gram-negative bacteria (4) Hypertension Current Visit: No Status: Acute Qualifiers: Hypertension type: essential hypertension Qualified Code(s): I10 - Essential (primary) hypertension (5) Anxiety Current Visit: No Status: Chronic (6) Tobacco abuse Current Visit: No Status: Chronic - Constitutional Vitals: Temp Pulse Resp BP Pulse Ox 98.6 F 84 18 136/89 97 09/23/16 07:30 09/23/16 07:30 09/23/16 11:04 09/23/16 07:30 09/23/16 11:04 Internal Medicine: Result - Labs CBC & Chem 7: 09/23/16 03:30 09/23/16 03:30 Labs: Short CBC 09/23/16 Range/Units 03:30 WBC 17.3 H (4.3-11.1) K/mcL Hgb 9.0 L (11.5-15.4) g/dL Hct 28.6 L (35.3-44.9) % Plt Count 434 H (140-400) K/mcL Neutrophils # 16.2 H (1.6-8.9) K/mcL BMP 09/23/16 03:30 Sodium 131 L Potassium 3.8 Chloride 92 L Carbon Dioxide 31 H BUN 14 Creatinine 0.78 Glucose 134 H Calcium 8.6 - Attending Attestation I examined this patient and my medical decision-making was reviewed with the Resident Physician on 09/23/16. I agree with the documented findings, disposition and treatment plan as described except to the extent set forth below. Ms. Mckeon is currently admitted for acute on chronic hypercarbic and hypoxic resp failure. She remains high risk due to potential for worsening respiratory issues. Ms. Mckeon is very anxious. She is having difficulty mobilizing sputum. No fever or chills. Off bipap at this time. No GI symptoms. Exam alert. mod resp distress at rest Deep moist cough Heart reg Diffuse end exp wheeze and rhonchi I/P 1. Acute resp failure 2. COPD exac Further diagnoses and plan as above.
[2016-09-23] MEDS: MethylPREDNISolone 40 MG/ML VIAL IVP SCH ×2 (09:39→17:25)
[2016-09-23] MEDS: *HR* Ticagrelor 90 MG TABLET PO SCH ×2 (09:40→20:18)
[2016-09-23] MEDS: Nicotine 21 MG PATCH.TD24 TD SCH (09:40)
[2016-09-23] MEDS: Aspirin 81 MG TAB.CHEW PO SCH (09:40)
[2016-09-23] MEDS: amLODIPine 5 MG TABLET PO SCH (09:40)
[2016-09-23] MEDS ORDERED: *HR* LORazepam 0.5 MG TABLET PO PRN (11:16)
[2016-09-23] MEDS: *HR* LORazepam 0.5 MG TABLET PO PRN ×2 (11:54→20:18)
[2016-09-23] MEDS ORDERED: Promethazine 12.5 MG in 0.9 % Sodium Chloride 50 ML IVPB PRN (17:25)
[2016-09-24] MEDS: MethylPREDNISolone 40 MG/ML VIAL IVP SCH ×4 (00:07→23:20)
[2016-09-24] MEDS: Levofloxacin 500 MG/100 ML 500 MG/100 ML BAG IVPB SCH ×2 (00:09→23:21)
[2016-09-24] MEDS: Piperacillin/Tazobactam 3.375 GM in D5% in Water (Mini-Bag+) 100 ML IVPB SCH ×3 (01:00→16:01)
[2016-09-24 03:54] LABS: Basophils % 0.1 %; Hematocrit 25.3 % (35.3-44.9); Hemoglobin 8.4 g/dL (11.5-15.4); Immature Granulocytes % 1.5 % (0-4); Lymphocytes # 0.2 K/mcL (0.6-4.6); Lymphocytes % 1.1 %; Mean Corpuscular HGB Conc 33.2 g/dL (31.6-35.5); Mean Corpuscular Hemoglobin 29.1 pg (28.0-33.3); Mean Corpuscular Volume 87.5 fL (83.0-100.0); Mean Platelet Volume 9.4 fL (9.4-12.4); Monocytes # 0.2 K/mcL (0.0-1.3); Monocytes % 1.5 %; Platelet Count 358 K/mcL (140-400); Red Blood Count 2.89 M/mcL (3.82-4.97); Red Cell Distribution Width 14.3 % (11.5-14.5); Segmented Neutrophils % 95.8 %
[2016-09-24 03:56] LABS: BUN/Creatinine Ratio 16 (6-26); Blood Urea Nitrogen 12 mg/dL (7-20); Carbon Dioxide 29 mEq/L (19-29); Chloride 88 mEq/L (98-109); Glucose 125 mg/dL (70-99); Osmolality,Calculated 261 (280-300); Potassium 3.8 mEq/L (3.5-4.5); Sodium 125 mEq/L (136-145); eGFR For African Americans > 60 (> 60); eGFR For Non-African Americans > 60 (> 60)
[2016-09-24] MEDS: Ipratropium/Albuterol Neb 3 ML IH SCH ×6 (04:01→23:17)
[2016-09-24 04:21] LABS: Toxic Granulation Present (Not Present)
[2016-09-24] MEDS: Vancomycin 750 MG in D5% in Water 250 ML IVPB SCH ×2 (05:10→20:39)
[2016-09-24] MEDS: Ibuprofen 400 MG TABLET PO PRN (05:15)
[2016-09-24] MEDS: *HR* LORazepam 0.5 MG TABLET PO PRN ×3 (05:15→20:39)
[2016-09-24] MEDS: *HR* Enoxaparin 40 MG/0.4 ML SYRINGE SQ SCH (05:56)
[2016-09-24] MEDS: Budesonide/Formoterol 160/4.5 MDI IH SCH ×2 (08:09→19:59)
[2016-09-24] MEDS: Aspirin 81 MG TAB.CHEW PO SCH (10:20)
--- NOTE | 2016-09-24 10:20 | Internal Med Progress Note ---
<Ke Sarabia - Last Filed: 09/24/16 10:17> Date of Encounter: 09/24/16 Time of Encounter: 10:18 - Assessment and plan (1) Acute and chronic respiratory failure Current Visit: No Status: Acute Assessment and plan: 64-year-old female with a history of lung cancer, tobacco abuse, COPD is admitted for acute on chronic respiratory failure. This is most likely secondary to COPD exacerbation HCAP. Patient underwent BiPAP and tolerated well. She continues to be on [address] chest shows patchy consolidation in the right lower lobe. Patient also has new compression fracture at T6. There is no evidence of recurrence of lung cancer. Patient says her cough has resolved and sob has improved. Lung exam has improved from yesterday. Right basilar crackles have improved. Patient is moving more air. We will continue treating patient for COPD exacerbation and HCAP. Qualifiers: Respiratory failure complication: hypoxia and hypercapnia Qualified Code(s) : J96.21 - Acute and chronic respiratory failure with hypoxia; J96.22 - Acute and chronic respiratory failure with hypercapnia (2) Acute exacerbation of chronic obstructive pulmonary disease (COPD) Current Visit: Yes Status: Acute Assessment and plan: Patient came in with increased sputum production and worsening dyspnea. She also had increase in her oxygen demand. Currently will continue her on steroids , inhalers and nebulizer treatment. Continue oxygen supplementation. (3) HCAP (healthcare-associated pneumonia) Current Visit: Yes Status: Acute Assessment and plan: Patient was hospitalized within 90 days of this admission for pneumonia. This is most likely bacterial. CT chest shows right lower lobe consolidation. Chest x-ray in April 2016 shows scarring of the right lower lobe which could cause recurrence of her pneumonia. Leukocytosis has improved. We will continue her on vanc zosyn and Levaquin. Sputum cultures and blood cultures are still pending. We will de-escalate antibiotics as results come back. (4) DVT prophylaxis Current Visit: No Status: Acute Assessment and plan: Continue Lovenox (5) Hypertension Current Visit: No Status: Acute Assessment and plan: Patient has a history of hypertension. Her blood pressures and very well controlled since admission. We will continue her home amlodipine. Qualifiers: Hypertension type: essential hypertension Qualified Code(s): I10 - Essential (primary) hypertension (6) CAD (coronary artery disease) Current Visit: No Status: Chronic Assessment and plan: Patient denies chest pain, palpitations. Cardiovascular exam within normal limits. Continue aspirin, Brilinta metoprolol, statin. Qualifiers: Coronary Disease-Associated Artery/Lesion type: [place] artery [place] vs. transplanted heart: [place] heart Associated angina: without angina Qualified Code(s): I25.10 - Atherosclerotic heart disease of [place] coronary artery without angina pectoris (7) Anxiety Current Visit: No Status: Chronic Assessment and plan: Patient says she is very anxious today and this is causing her to have a headache. Continue hydroxazaine and ativan. - Subjective Interval history: Patient says her shortness of breath is improved. Her cough has resolved. However she cannot go home because there is no one to take care of her there. Patient does not have home health either. - Constitutional Vitals: Temp Pulse Resp BP Pulse Ox 98.3 F 88 18 136/95 100 09/24/16 07:10 09/24/16 07:10 09/24/16 08:09 09/24/16 07:10 09/24/16 08:09 General appearance: Present: cooperative, A&O X 3, pleasant, answers questions appropriately - Head Head exam: Present: atraumatic, normocephalic - Eye Eye exam: Present: PERRL, conjuntiva pink, sclera anicteric - Neck Neck exam general surgery: Present: supple, trachea midline. Absent: lymphadenopathy - Respiratory Respiratory exam: Present: decreased breath sounds, rales (Right basilar Rales) , wheezes (Bilateral). Absent: accessory muscle use, rhonchi - Cardiovascular Cardiovascular exam: Present: RRR, +S1, +S2. Absent: diastolic murmur, gallop, rubs, systolic murmur - GI/Abdominal GI/Abdominal exam: Present: normal bowel sounds, soft, no peritoneal signs. Absent: distended, tenderness - Extremities Exam Extremities exam: Present: warm, radial pulses palpable and symetrical. Absent : calf tenderness, cyanotic, pedal edema - Neurological Exam Neurological exam: Present: CN II-XII intact, oriented X3, no focal deficits. Absent: pronater drift, facial droop, speech deficit - Skin Skin exam: Present: dry, intact Internal Medicine: Result - Labs CBC & Chem 7: 09/24/16 03:27 09/24/16 03:27 Labs: Short CBC 09/24/16 Range/Units 03:27 WBC 13.6 H (4.3-11.1) K/mcL Hgb 8.4 L (11.5-15.4) g/dL Hct 25.3 L (35.3-44.9) % Plt Count 358 (140-400) K/mcL Neutrophils # 13.0 H (1.6-8.9) K/mcL BMP 09/24/16 03:27 Sodium 125 L Potassium 3.8 Chloride 88 L Carbon Dioxide 29 BUN 12 Creatinine 0.73 Glucose 125 H Calcium 8.0 L Consult Discharge Plan - Plan Referrals: NO,PCP [Primary Care Provider] - <Uriel Garcia - Last Filed: 09/24/16 16:43> Date of Encounter: 09/24/16 - Assessment and plan (1) Acute and chronic respiratory failure Current Visit: No Status: Acute Qualifiers: Respiratory failure complication: hypoxia and hypercapnia Qualified Code(s) : J96.21 - Acute and chronic respiratory failure with hypoxia; J96.22 - Acute and chronic respiratory failure with hypercapnia (2) Acute exacerbation of chronic obstructive pulmonary disease (COPD) Current Visit: Yes Status: Acute (3) Pneumonia Current Visit: Yes Status: Suspected Assessment and plan: Currently on IV abx. Qualifiers: Pneumonia type: due to other aerobic Gram-negative bacteria Laterality: right Lung location: middle lobe of lung Qualified Code(s): J15.6 - Pneumonia due to other aerobic Gram-negative bacteria (4) Hypertension Current Visit: No Status: Acute Qualifiers: Hypertension type: essential hypertension Qualified Code(s): I10 - Essential (primary) hypertension (5) Anxiety Current Visit: No Status: Chronic Assessment and plan: Increase Ativan to q6h PRN (6) Tobacco abuse Current Visit: No Status: Chronic - Constitutional Vitals: Temp Pulse Resp BP Pulse Ox 98.8 F 82 16 116/80 99 09/24/16 16:09 09/24/16 16:09 09/24/16 16:09 09/24/16 16:09 09/24/16 16:09 Internal Medicine: Result - Labs CBC & Chem 7: 09/24/16 03:27 09/24/16 03:27 Labs: Short CBC 09/24/16 Range/Units 03:27 WBC 13.6 H (4.3-11.1) K/mcL Hgb 8.4 L (11.5-15.4) g/dL Hct 25.3 L (35.3-44.9) % Plt Count 358 (140-400) K/mcL Neutrophils # 13.0 H (1.6-8.9) K/mcL BMP 09/24/16 03:27 Sodium 125 L Potassium 3.8 Chloride 88 L Carbon Dioxide 29 BUN 12 Creatinine 0.73 Glucose 125 H Calcium 8.0 L - Attending Attestation I examined this patient and my medical decision-making was reviewed with the Resident Physician on 09/24/16. I agree with the documented findings, disposition and treatment plan as described except to the extent set forth below. Ms Mckeon is currently admitted for acute respiratory failure and COPD exacerbation. She remains moderate to high risk due to potential for worsening respiratory status. Ms. Mckeon says she does not feel well. She is still dyspneic requiring frequent aerosols. She is still on steroids and abx. She is having a lot of anxiety today - is hospitalized at [facility]. Exam Alert. Mod resp distress at rest Heart reg lungs with scattered end exp wheeze No edema i/P 1. Acute resp failure 2. COPD exac 3. Anxiety Further diagnoses and plan as above.
[2016-09-24] MEDS: Nicotine 21 MG PATCH.TD24 TD SCH (10:21)
[2016-09-24] MEDS: *HR* Ticagrelor 90 MG TABLET PO SCH ×2 (10:21→20:38)
[2016-09-24] MEDS: amLODIPine 5 MG TABLET PO SCH (10:21)
[2016-09-25] MEDS: Piperacillin/Tazobactam 3.375 GM in D5% in Water (Mini-Bag+) 100 ML IVPB SCH ×3 (00:26→21:08)
[2016-09-25] MEDS: *HR* LORazepam 0.5 MG TABLET PO PRN ×2 (03:13→10:22)
[2016-09-25 03:23] LABS: Hematocrit 26.3 % (35.3-44.9); Hemoglobin 8.6 g/dL (11.5-15.4); Immature Platelets 3.1 % (1.1-6.1); Mean Corpuscular HGB Conc 32.7 g/dL (31.6-35.5); Mean Corpuscular Hemoglobin 28.5 pg (28.0-33.3); Mean Corpuscular Volume 87.1 fL (83.0-100.0); Mean Platelet Volume 8.9 fL (9.4-12.4); Platelet Count 375 K/mcL (140-400); Red Blood Count 3.02 M/mcL (3.82-4.97); Red Cell Distribution Width 14.4 % (11.5-14.5)
[2016-09-25 03:38] LABS: BUN/Creatinine Ratio 18 (6-26); Blood Urea Nitrogen 14 mg/dL (7-20); Calcium 8.2 mg/dL (8.6-10.8); Carbon Dioxide 30 mEq/L (19-29); Chloride 93 mEq/L (98-109); Glucose 149 mg/dL (70-99); Osmolality,Calculated 273 (280-300); Potassium 3.8 mEq/L (3.5-4.5); Sodium 130 mEq/L (136-145); eGFR For African Americans > 60 (> 60); eGFR For Non-African Americans > 60 (> 60)
[2016-09-25 03:54] LABS: Lymphocytes # 0.2 K/mcL (0.6-4.6); Monocytes # 0.4 K/mcL (0.0-1.3); Platelet Estimate Normal (Normal)
[2016-09-25 03:56] LABS: Hypochromasia Present (Not Present)
[2016-09-25] MEDS: Ipratropium/Albuterol Neb 3 ML IH SCH ×5 (05:03→21:18)
[2016-09-25] MEDS: *HR* Enoxaparin 40 MG/0.4 ML SYRINGE SQ SCH (06:11)
[2016-09-25] MEDS: Budesonide/Formoterol 160/4.5 MDI IH SCH ×2 (07:21→21:19)
[2016-09-25] MEDS ORDERED: Vancomycin 750 MG in D5% in Water 250 ML IVPB SCH (09:00)
[2016-09-25] MEDS: amLODIPine 5 MG TABLET PO SCH (10:19)
[2016-09-25] MEDS: Aspirin 81 MG TAB.CHEW PO SCH (10:19)
[2016-09-25] MEDS: *HR* Ticagrelor 90 MG TABLET PO SCH ×2 (10:19→21:09)
[2016-09-25] MEDS: MethylPREDNISolone 40 MG/ML VIAL IVP SCH ×3 (10:19→18:06)
[2016-09-25] MEDS: Nicotine 21 MG PATCH.TD24 TD SCH (10:20)
[2016-09-25] MEDS ORDERED: Ketorolac 30 MG/ML VIAL IVP ONE (10:34)
[2016-09-25] MEDS ORDERED: ALPRAZolam 0.5 MG TABLET PO STA (15:42)
--- NOTE | 2016-09-25 16:59 | Internal Med Progress Note ---
Date of Encounter: 09/25/16 Time of Encounter: 16:00 - Assessment and plan (1) Suicidal thoughts Current Visit: Yes Status: Acute Assessment and plan: Pt has no specific plan at this time. Will ask psych to see tomorrow. Marlyn. (2) Anxiety Current Visit: No Status: Chronic Assessment and plan: She relates more anxiety and depression today. She states she cannot live with the stress in her life. She has no specific plan. Will ask psychiatry to see. Marlyn for now. I have not signed a pink slip as she has no intention of leaving at this time. Ativan discontinued and Xanax started. She agrees to try Zoloft as well. At this point she would be medically stable for psych admission if warranted. (3) Acute and chronic respiratory failure Current Visit: No Status: Acute Assessment and plan: Continues to have some dyspnea but overall clinically has been improving. Will taper off steroids. Continue abx and aerosols. Qualifiers: Respiratory failure complication: hypoxia and hypercapnia Qualified Code(s) : J96.21 - Acute and chronic respiratory failure with hypoxia; J96.22 - Acute and chronic respiratory failure with hypercapnia (4) Acute exacerbation of chronic obstructive pulmonary disease (COPD) Current Visit: Yes Status: Acute Assessment and plan: Slowly improving. Will begin to taper off meds. (5) Pneumonia Current Visit: Yes Status: Suspected Assessment and plan: Currently on IV abx. Qualifiers: Pneumonia type: due to other aerobic Gram-negative bacteria Laterality: right Lung location: middle lobe of lung Qualified Code(s): J15.6 - Pneumonia due to other aerobic Gram-negative bacteria (6) Hypertension Current Visit: No Status: Acute Assessment and plan: Patient has a history of hypertension. Her blood pressures and very well controlled since admission. We will continue her home amlodipine. Qualifiers: Hypertension type: essential hypertension Qualified Code(s): I10 - Essential (primary) hypertension (7) Tobacco abuse Current Visit: No Status: Chronic Assessment and plan: Cessation counselling. - Subjective Interval history: Ms. Mckeon is currently admitted for acute exac COPD and acute on chronic resp failure. She is high risk due to potential for worsening respiratory symptoms. Ms. Mckeon stated today that she was so anxious and stressed she wanted to . She denies overt suicidal ideation but stated she can't live this way anymore. She is very tearful in talking to everyone. Her breathing is about the same today. No CP. No GI symptoms. - Constitutional Vitals: Temp Pulse Resp BP Pulse Ox 99.5 F 86 18 121/72 96 09/25/16 15:57 09/25/16 15:57 09/25/16 16:17 09/25/16 15:57 09/25/16 16:17 General appearance: Present: cooperative, A&O X 3, answers questions appropriately - Head Head exam: Present: normocephalic - Eye Eye exam: Present: EOMI, conjuntiva pink - ENT ENT exam: Present: mucous membranes moist - Respiratory Respiratory exam: Present: decreased breath sounds, wheezes. Absent: rhonchi - Cardiovascular Cardiovascular exam: Present: RRR. Absent: systolic murmur, tachycardia - GI/Abdominal GI/Abdominal exam: Present: soft. Absent: mass, tenderness - Extremities Exam Extremities exam: Present: warm. Absent: pedal edema, tenderness - Neurological Exam Neurological exam: Present: alert, oriented X3, no focal deficits - Psychiatric Psychiatric exam: Present: anxious, depressed - Skin Skin exam: Present: dry, warm. Absent: rash Internal Medicine: Result - Labs CBC & Chem 7: 09/25/16 03:15 09/25/16 03:15 Labs: Short CBC 09/25/16 Range/Units 03:15 WBC 9.6 (4.3-11.1) K/mcL Hgb 8.6 L (11.5-15.4) g/dL Hct 26.3 L (35.3-44.9) % Plt Count 375 (140-400) K/mcL Neutrophils # 9.0 H (1.6-8.9) K/mcL BMP 09/25/16 03:15 Sodium 130 L Potassium 3.8 Chloride 93 L Carbon Dioxide 30 H BUN 14 Creatinine 0.76 Glucose 149 H Calcium 8.2 L Consult Discharge Plan - Plan Referrals: NO,PCP [Primary Care Provider] -
[2016-09-25] MEDS: levoFLOXacin 500 MG TABLET PO SCH (23:32)
[2016-09-25] MEDS: ALPRAZolam 0.25 MG TABLET PO PRN (23:32)
[2016-09-26] MEDS: Ipratropium/Albuterol Neb 3 ML IH SCH ×6 (00:03→20:32)
[2016-09-26] MEDS ORDERED: Melatonin 3 MG TABLET PO PRN (01:22)
[2016-09-26] MEDS ORDERED: Vancomycin 750 MG in D5% in Water 250 ML IVPB SCH (03:00)
[2016-09-26 03:55] LABS: Hemoglobin 9.2 g/dL (11.5-15.4); Mean Corpuscular HGB Conc 32.9 g/dL (31.6-35.5); Mean Corpuscular Hemoglobin 28.7 pg (28.0-33.3); Mean Corpuscular Volume 87.2 fL (83.0-100.0); Mean Platelet Volume 9.2 fL (9.4-12.4); Platelet Count 293 K/mcL (140-400); Red Blood Count 3.21 M/mcL (3.82-4.97); Red Cell Distribution Width 14.5 % (11.5-14.5)
[2016-09-26 04:26] LABS: BUN/Creatinine Ratio 25 (6-26); Blood Urea Nitrogen 19 mg/dL (7-20); Carbon Dioxide 29 mEq/L (19-29); Chloride 93 mEq/L (98-109); Glucose 99 mg/dL (70-99); Magnesium 1.8 mg/dL (1.6-2.6); Osmolality,Calculated 272 (280-300); Potassium 3.6 mEq/L (3.5-4.5); Sodium 130 mEq/L (136-145); eGFR For African Americans > 60 (> 60); eGFR For Non-African Americans > 60 (> 60)
[2016-09-26] MEDS: MethylPREDNISolone 40 MG/ML VIAL IVP SCH ×2 (05:11→16:40)
[2016-09-26] MEDS: *HR* Enoxaparin 40 MG/0.4 ML SYRINGE SQ SCH (05:11)
[2016-09-26] MEDS: Budesonide/Formoterol 160/4.5 MDI IH SCH ×2 (08:16→20:32)
[2016-09-26] MEDS: Nicotine 21 MG PATCH.TD24 TD SCH (08:18)
[2016-09-26] MEDS: Aspirin 81 MG TAB.CHEW PO SCH (08:18)
[2016-09-26] MEDS: amLODIPine 5 MG TABLET PO SCH (08:18)
[2016-09-26] MEDS: *HR* Ticagrelor 90 MG TABLET PO SCH ×2 (08:18→20:22)
[2016-09-26] MEDS: Piperacillin/Tazobactam 3.375 GM in D5% in Water (Mini-Bag+) 100 ML IVPB SCH ×2 (09:14)
[2016-09-26] MEDS: Ibuprofen 400 MG TABLET PO PRN (11:01)
[2016-09-26] MEDS: ALPRAZolam 0.25 MG TABLET PO PRN (11:03)
--- NOTE | 2016-09-26 15:16 | Consult Note ---
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 Her anxiety is due to multiple medical conditions including acute and chronic respiratory failure and COPD. I discussed with patient adding medication to improve her sleep and control her anxiety. We will start mirtazapine 15 mg by mouth at bedtime. Thank you for consultation. History of Present Illness Patient: new to practice Requesting Physician: Uriel Garcia DO Reason for consult: Depression and suicidal ideation History of present illness: Ms. Mckeon is a 65 year old female with a complex medical history including acute respiratory respiratory failure, COPD, hypertension, pneumonia. Psychiatric consultation was requested to evaluate patient for depression and suicidal ideation after she made a statements to the nursing staff. 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 She is disappointed that as a result of her medical condition and difficulty breathing and anxiety is exaggerated and she is unable to perform or maintain her activity levels. She denied having any intent to harm herself or to kill herself but she meant to say I need help so I can stay active and functioning day after day. Patient states she smokes 3 cigarettes a day she was some confusion denied any use of alcohol or drugs. She is currently stressed out by financial issues related to having surgery on his back and unable to work for a few weeks and she worried about the finance. Patient denied any past history of depression treatment or hospitalization. CC: Uriel Garcia DO Past Med Surg Social Fam HX - Past Medical History Medical history: cancer, COPD, coronary artery disease, GI bleed, hypertension, other - Past Psychiatric History Psychiatric history: Reports: no psych history - Past Surgical History Surgical History: appendectomy, cancer surgery, cholecystectomy, SHERICE/BSO, other - Social History Smoking Status: Current every day smoker Smokeless Tobacco Status: No Alcohol use: none Drug use: none - Family History Mother Adopted: No Living Status: Hx Family Cardiac Disorders: No Hx Family Respiratory Disorders: Yes (COPD) Hx Family Cancer: No Hx Family GI Disorders: No Hx Family Endocrine Disorder: No Hx Family Neuromuscular Disorders: No Hx Family Neurologic Disorders: No Hx Family HEENT Disorders: No Hx Family Autoimmune Disorders: No Father Adopted: No Living Status: Hx Family Cardiac Disorders: No Hx Family Respiratory Disorders: No Hx Family Cancer: No Hx Family GI Disorders: No Hx Family Endocrine Disorder: No Hx Family Neuromuscular Disorders: No Hx Family Neurologic Disorders: No Hx Family HEENT Disorders: No Hx Family Autoimmune Disorders: No Sister Adopted: No Living Status: Still Living Hx Family Cardiac Disorders: No Hx Family Respiratory Disorders: No Hx Family Cancer: No Hx Family GI Disorders: No Hx Family Endocrine Disorder: No Hx Family Neuromuscular Disorders: No Hx Family Neurologic Disorders: Yes (MS) Hx Family HEENT Disorders: No Hx Family Autoimmune Disorders: No Brother Adopted: No Living Status: Still Living Hx Family Cardiac Disorders: No Hx Family Respiratory Disorders: No Hx Family Cancer: No Hx Family GI Disorders: No Hx Family Endocrine Disorder: No Hx Family Neuromuscular Disorders: No Hx Family Neurologic Disorders: No Hx Family HEENT Disorders: No Hx Family Autoimmune Disorders: No Medications & Allergies Ipratropium/Albuterol Sulfate [Combivent Respimat Inhal [place]] 2 puff IH DAILY 03/05/16 [History] Levothyroxine Sodium [Tirosint] 50 mcg PO DAILY 03/05/16 [History] Metoprolol [Lopressor] 25 mg PO BID 03/05/16 [History] Amlodipine [Norvasc] 5 mg PO DAILY #30 tablet 05/10/16 [Rx] Ticagrelor [Brilinta] 90 mg PO BID #30 tablet 05/10/16 [Rx] Albuterol Sulfate [Albuterol Inhaler] 2 puff IH Q4H PRN 09/22/16 [History] Aspirin 81 mg PO DAILY 09/22/16 [History] Potassium Chloride [Potassium Chloride] 10 meq PO DAILY 09/22/16 [History] Allergies clopidogrel [From Plavix] Allergy (Verified 09/22/16 08:27) Itching Review of Systems Psychiatric: Reports: depression, anxiety. Denies: abnormal sleep pattern, suicidal ideation Mental Status Exam Patient orientation: Yes Person, Yes Time, Yes Place Level of alertness: Alert Patient appearance: Appropriate, Unkempt, Disheveled, Mal-nourished, Thin Behavior: cooperative, anxious Psychomotor activity: Normal Eye contact: Maintains Eye Contact Mood description: Depressed, Anxious Affect description: congruent with mood, full range Speech pattern: Normal rate, Normal rhythm, Normal tone, Appropriate, Coherent Speech volume: Normal Thought process: Linear, Goal Oriented Thought content: No Suicidal ideation, No Homicidal ideation, No Overt delusions Perceptual disturbances: No Auditory hallucinations, No Visual hallucinations Attention span: Capable of Focused Attention Memory description: Grossly Intact Patient reliability: Reliable Historian Intelligence estimate: Average Judgment: Limited Insight: Partial Results - Vital Signs Vital signs: Temp Pulse Resp BP Pulse Ox 98.7 F 70 16 118/70 99 09/26/16 07:00 09/26/16 10:34 09/26/16 10:34 09/26/16 12:00 09/26/16 10:34 - Labs Labs: Laboratory Last Values WBC 7.9 K/mcL (4.3-11.1) 09/26/16 03:15 RBC 3.21 M/mcL (3.82-4.97) L 09/26/16 03:15 Hgb 9.2 g/dL (11.5-15.4) L 09/26/16 03:15 Hct 28.0 % (35.3-44.9) L 09/26/16 03:15 MCV 87.2 fL (83.0-100.0) 09/26/16 03:15 MCH 28.7 pg (28.0-33.3) 09/26/16 03:15 MCHC 32.9 g/dL (31.6-35.5) 09/26/16 03:15 RDW 14.5 % (11.5-14.5) 09/26/16 03:15 Plt Count 293 K/mcL (140-400) 09/26/16 03:15 MPV 9.2 fL (9.4-12.4) L 09/26/16 03:15 Immature Gran % 1.5 % (0-4) 09/24/16 03:27 Seg Neutrophils % 88.0 % 09/25/16 03:15 Band Neutrophils % 6.0 % (0-4) H 09/25/16 03:15 Lymphocytes % 2.0 % 09/25/16 03:15 Monocytes % 4.0 % 09/25/16 03:15 Eosinophils % 0.0 % 09/24/16 03:27 Basophils % 0.1 % 09/24/16 03:27 Neutrophils # 9.0 K/mcL (1.6-8.9) H 09/25/16 03:15 Lymphocytes # 0.2 K/mcL (0.6-4.6) L 09/25/16 03:15 Monocytes # 0.4 K/mcL (0.0-1.3) 09/25/16 03:15 Eosinophils # 0.0 K/mcL (0.0-0.6) 09/24/16 03:27 Basophils # 0.0 K/mcL (0.0-0.2) 09/24/16 03:27 Toxic Granulation Present (Not Present) A 09/24/16 03:27 Platelet Estimate Normal (Normal) 09/25/16 03:15 Immature Plt Fraction 3.1 % (1.1-6.1) 09/25/16 03:15 Hypochromasia Present (Not Present) A 09/25/16 03:15 VBG pH 7.30 pH Units (7.32-7.42) L 09/21/16 23:40 VBG pCO2 84 mmHg (41-51) H 09/21/16 23:40 VBG pO2 47 mmHg (25-40) H 09/21/16 23:40 VBG HCO3 41.3 mEq/L (21-27) H 09/21/16 23:40 Sodium 130 mEq/L (136-145) L 09/26/16 03:15 Potassium 3.6 mEq/L (3.5-4.5) 09/26/16 03:15 Chloride 93 mEq/L (98-109) L 09/26/16 03:15 Carbon Dioxide 29 mEq/L (19-29) 09/26/16 03:15 BUN 19 mg/dL (7-20) 09/26/16 03:15 Creatinine 0.76 mg/dL (0.57-1.11) 09/26/16 03:15 Est GFR ( Amer) > 60 (> 60) 09/26/16 03:15 Est GFR (Non-Af Amer) > 60 (> 60) 09/26/16 03:15 BUN/Creatinine Ratio 25 (6-26) 09/26/16 03:15 Glucose 99 mg/dL (70-99) 09/26/16 03:15 Calculated Osmolality 272 (280-300) L 09/26/16 03:15 Calcium 8.0 mg/dL (8.6-10.8) L 09/26/16 03:15 Magnesium 1.8 mg/dL (1.6-2.6) 09/26/16 03:15 Troponin I 0.01 ng/mL (0-0.03) 09/21/16 23:40 Vitamin B12 320 pg/mL (213-816) 09/26/16 03:15 Vancomycin Trough 6.7 mcg/mL (10-20) L 09/24/16 03:27 Consult Discharge Plan - Plan Referrals: NO,PCP [Primary Care Provider] - Imtiaz Alicea [Non-Partnered Physician] - 10/04/16 9:20 am
[2016-09-26] MEDS: Saline Nasal Spray 44 ML BOTTLE NS PRN (16:40)
--- NOTE | 2016-09-26 19:30 | Internal Med Progress Note ---
Date of Encounter: 09/26/16 Time of Encounter: 14:00 - Assessment and plan (1) Acute and chronic respiratory failure Current Visit: No Status: Acute Assessment and plan: Some cough and dyspnea persist. She is more focused on anxiety. Will continue to taper off meds and anticipate d/c in next 1-2 days. Qualifiers: Respiratory failure complication: hypoxia and hypercapnia Qualified Code(s) : J96.21 - Acute and chronic respiratory failure with hypoxia; J96.22 - Acute and chronic respiratory failure with hypercapnia (2) Acute exacerbation of chronic obstructive pulmonary disease (COPD) Current Visit: Yes Status: Acute Assessment and plan: Slowly improving. Tapering meds. (3) Pneumonia Current Visit: Yes Status: Suspected Assessment and plan: Currently on IV abx. Qualifiers: Pneumonia type: due to other aerobic Gram-negative bacteria Laterality: right Lung location: middle lobe of lung Qualified Code(s): J15.6 - Pneumonia due to other aerobic Gram-negative bacteria (4) Suicidal thoughts Current Visit: Yes Status: Resolved Assessment and plan: Appreciate psych input. (5) Anxiety Current Visit: No Status: Chronic Assessment and plan: Remains anxious. Started on Remeron per psych. (6) Hypertension Current Visit: No Status: Acute Assessment and plan: Patient has a history of hypertension. Her blood pressures and very well controlled since admission. We will continue her home amlodipine. Qualifiers: Hypertension type: essential hypertension Qualified Code(s): I10 - Essential (primary) hypertension (7) Tobacco abuse Current Visit: No Status: Chronic Assessment and plan: Cessation counselling. - Subjective Interval history: Ms. Mckeon is currently admitted for acute exac COPD and acute on chronic resp failure. She is high risk due to potential for worsening respiratory symptoms. Ms. Mckeon was seen by psychiatry today and Remeron added. Says her breathing is "rough"today. No pain. Feels very anxious. Coughing some. No fever or chills. - Constitutional Vitals: Temp Pulse Resp BP Pulse Ox 98.2 F 64 18 127/75 99 09/26/16 15:58 09/26/16 15:58 09/26/16 16:13 09/26/16 15:58 09/26/16 16:13 General appearance: Present: cooperative, A&O X 3, answers questions appropriately - Head Head exam: Present: normocephalic - Eye Eye exam: Present: EOMI, conjuntiva pink - ENT ENT exam: Present: mucous membranes dry - Respiratory Respiratory exam: Present: decreased breath sounds, wheezes - Cardiovascular Cardiovascular exam: Present: RRR. Absent: tachycardia - GI/Abdominal GI/Abdominal exam: Present: soft. Absent: tenderness - Extremities Exam Extremities exam: Present: warm. Absent: pedal edema - Neurological Exam Neurological exam: Present: alert, oriented X3, no focal deficits - Psychiatric Psychiatric exam: Present: anxious - Skin Skin exam: Present: warm. Absent: rash Internal Medicine: Result - Labs CBC & Chem 7: 09/26/16 03:15 09/26/16 03:15 Labs: Short CBC 09/26/16 Range/Units 03:15 WBC 7.9 (4.3-11.1) K/mcL Hgb 9.2 L (11.5-15.4) g/dL Hct 28.0 L (35.3-44.9) % Plt Count 293 (140-400) K/mcL [facility] 09/26/16 03:15 Sodium 130 L Potassium 3.6 Chloride 93 L Carbon Dioxide 29 BUN 19 Creatinine 0.76 Glucose 99 Calcium 8.0 L Consult Discharge Plan - Plan Referrals: NO,PCP [Primary Care Provider] - Imtiaz Alicea [Non-Partnered Physician] - 10/04/16 9:20 am
[2016-09-26] MEDS: predniSONE 20 MG TABLET PO SCH (20:21)
[2016-09-26] MEDS ORDERED: Mirtazapine 15 MG TABLET PO SCH (21:00)
[2016-09-26] MEDS: levoFLOXacin 500 MG TABLET PO SCH (22:59)
[2016-09-27] MEDS: Ipratropium/Albuterol Neb 3 ML IH SCH ×6 (00:26→20:06)
[2016-09-27 03:43] LABS: Hematocrit 25.5 % (35.3-44.9); Hemoglobin 8.3 g/dL (11.5-15.4); Mean Corpuscular HGB Conc 32.5 g/dL (31.6-35.5); Mean Corpuscular Hemoglobin 28.4 pg (28.0-33.3); Mean Corpuscular Volume 87.3 fL (83.0-100.0); Mean Platelet Volume 9.3 fL (9.4-12.4); Platelet Count 308 K/mcL (140-400); Red Blood Count 2.92 M/mcL (3.82-4.97); Red Cell Distribution Width 14.5 % (11.5-14.5)
[2016-09-27 03:50] LABS: BUN/Creatinine Ratio 18 (6-26); Blood Urea Nitrogen 13 mg/dL (7-20); Calcium 8.2 mg/dL (8.6-10.8); Carbon Dioxide 30 mEq/L (19-29); Chloride 97 mEq/L (98-109); Glucose 136 mg/dL (70-99); Osmolality,Calculated 276 (280-300); Potassium 3.9 mEq/L (3.5-4.5); Sodium 132 mEq/L (136-145); eGFR For African Americans > 60 (> 60); eGFR For Non-African Americans > 60 (> 60)
[2016-09-27] MEDS: *HR* Enoxaparin 40 MG/0.4 ML SYRINGE SQ SCH (05:55)
[2016-09-27] MEDS: Budesonide/Formoterol 160/4.5 MDI IH SCH ×2 (08:15→20:06)
[2016-09-27] MEDS: Saline Nasal Spray 44 ML BOTTLE NS PRN (09:32)
[2016-09-27] MEDS: predniSONE 20 MG TABLET PO SCH ×2 (09:32→16:29)
[2016-09-27] MEDS: *HR* Ticagrelor 90 MG TABLET PO SCH (09:33)
[2016-09-27] MEDS: Aspirin 81 MG TAB.CHEW PO SCH (09:33)
[2016-09-27] MEDS: Nicotine 21 MG PATCH.TD24 TD SCH (09:33)
[2016-09-27] MEDS: amLODIPine 5 MG TABLET PO SCH (09:33)
[2016-09-27] MEDS: ALPRAZolam 0.25 MG TABLET PO PRN (10:31)
[2016-09-27 11:09] VITALS: BP 127/84
--- NOTE | 2016-09-27 15:38 | Discharge Summary ---
Date of Encounter: 09/27/16 Time of Encounter: 10:15 - Discharge Diagnosis (1) Pneumonia Priority: Primary Status: Acute Qualifiers: Pneumonia type: due to unspecified organism Laterality: right Lung location: upper lobe of lung Qualified Code(s): J18.1 - Lobar pneumonia, unspecified organism (2) Acute exacerbation of chronic obstructive pulmonary disease (COPD) Priority: Primary Status: Acute (3) Suicidal thoughts Priority: Primary Status: Resolved (4) Hypothyroidism Priority: Secondary Status: Chronic Qualifiers: Hypothyroidism type: unspecified Qualified Code(s): E03.9 - Hypothyroidism , unspecified (5) Acute and chronic respiratory failure Priority: Primary Status: Acute Qualifiers: Respiratory failure complication: hypoxia and hypercapnia Qualified Code(s) : J96.21 - Acute and chronic respiratory failure with hypoxia; J96.22 - Acute and chronic respiratory failure with hypercapnia (6) Hypertension Priority: Secondary Status: Chronic Qualifiers: Hypertension type: essential hypertension Qualified Code(s): I10 - Essential (primary) hypertension (7) Anxiety Priority: Secondary Status: Chronic (8) CAD (coronary artery disease) Priority: Secondary Status: Chronic Qualifiers: Coronary Disease-Associated Artery/Lesion type: [place] artery [place] vs. transplanted heart: [place] heart Associated angina: without angina Qualified Code(s): I25.10 - Atherosclerotic heart disease of [place] coronary artery without angina pectoris (9) Tobacco abuse Priority: Secondary Status: Chronic - Discharge Medications Prescriptions: Alprazolam [Xanax 0.25 MG Tablet] 0.25 mg PO TID PRN #20 tablet PRN Reason: Anxiety Levofloxacin [Levaquin] 500 mg PO Q24H #4 tablet Mirtazapine [Remeron] 15 mg PO HS #20 tablet PredniSONE 20 mg PO BIDWM 5 Days Home Medications: Ipratropium/Albuterol Sulfate [Combivent Respimat Inhal [place]] 2 puff IH DAILY 03/05/16 [History] Levothyroxine Sodium [Tirosint] 50 mcg PO DAILY 03/05/16 [History] Metoprolol [Lopressor] 25 mg PO BID 03/05/16 [History] Amlodipine [Norvasc] 5 mg PO DAILY #30 tablet 05/10/16 [Rx] Ticagrelor [Brilinta] 90 mg PO BID #30 tablet 10/11/16 [Rx] Albuterol Sulfate [Albuterol Inhaler] 2 puff IH Q4H PRN 09/22/16 [History] Aspirin 81 mg PO DAILY 09/22/16 [History] Potassium Chloride 10 meq PO DAILY 09/22/16 [History] Alprazolam [Xanax 0.25 MG Tablet] 0.25 mg PO TID PRN #20 tablet 09/27/16 [Rx] HydrOXYzine 10 mg PO HS PRN #0 tablet 09/27/16 [Rx] Levofloxacin [Levaquin] 500 mg PO Q24H #4 tablet 09/27/16 [Rx] Mirtazapine [Remeron] 15 mg PO HS #20 tablet 09/27/16 [Rx] PredniSONE 20 mg PO BIDWM 5 Days 09/27/16 [Rx] Saline Nasal [place] [[place] Nasal [place]] 2 spray NS Q2H PRN #0 bottle 09/27/16 [Rx ] Sertraline [Zoloft] 25 mg PO DAILY tablet 09/27/16 [Rx] Simvastatin [Zocor] 40 mg PO HS tablet 09/27/16 [Rx] Allergies/Adverse Reactions: Allergies clopidogrel [From Plavix] Allergy (Verified 09/22/16 08:27) Itching Date of admission: 09/22/16 07:36 Primary care physician: PCP NO Consults: 09/25/16 15:47 Consult to Psychiatry [CONS] Routine Consulting Provider: Rosaline De Leon Reason for Consult: Depression, anxiety. Stated she feels so bad she "can't go on like this and wants to ." Time Notified: 15:45 Call Completed: Yes 09/27/16 10:03 Consult to Occupational Therapy [CONS] Routine Comment: Evaluate, develop and implement POC Consult to Physical Therapy [CONS] Routine Comment: Evaluate, develop and implement POC Consult to Gas Meter Installer Helper [CONS] Routine Reason for SW Consult: Discharge planning, transport issues Discharging clinician: Celeste Keys Anticipated date of discharge: 09/27/16 - Patient Status Disposition: Home, Self-Care Condition: Fair Functional capacity at discharge: independent ambulation Overall status at discharge: patient is progressing back to baseline - Discharge Instructions Instructions: Prednisone (By mouth), Mirtazapine (By mouth), Levofloxacin (By mouth), Acute Respiratory Distress Syndrome (DC), Chronic Obstructive Pulmonary Disease (DC), Sepsis (DC), Chronic Hypertension (DC), Anemia (GEN), Pneumonia ( DC), Cigarette Smoking and Your Health, Storage Consultant (GEN) Follow Up With: LISA,PCP [Primary Care Provider] - Imtiaz Alicea [Non-Partnered Physician] - 10/04/16 9:20 am - Diet and Activity Activity: resume usual activities as tolerated, wear oxygen at all times Diet: low fat, low cholesterol, low salt diet Hospital course: Ms. Mckeon is a 65 year old female with history of COPD who was admitted with worsening cough and shortness of breath. Chest x-ray done in the emergency room showed right upper lobe pneumonia and she was started on IV hydration and IV antibiotics. She was also noted to have an acute exacerbation of COPD and was started on steroids, bronchodilators along with supplemental oxygen. Her respiratory symptoms gradually improved and her oxygen requirements came down to her baseline. Patient reported suicidal ideation during her hospital stay and has been evaluated by psychiatry. This was thought to be due to extreme anxiety from underlying medical conditions and was recommended mirtazapine at bedtime to help with depression and poor appetite and insomnia. Patient is currently medically stable for discharge with outpatient follow-up. Patient would benefit from home physical therapy given her generalized weakness and significant pulmonary disease; home health referral has been completed. - Time Spent with Patient Total time spent providing and/or coordinating discharge services: Greater than 30 minutes (45 min) - Constitutional Vitals: Temp Pulse Resp BP Pulse Ox 99 F 73 16 127/84 98 09/27/16 11:08 09/27/16 11:08 09/27/16 11:15 09/27/16 11:08 09/27/16 11:15 General appearance: Present: A&O X 3, answers questions appropriately - Respiratory Respiratory exam: Present: CTAB. Absent: accessory muscle use, rales, rhonchi, wheezes - Cardiovascular Cardiovascular exam: Present: RRR, +S1, +S2. Absent: diastolic murmur, gallop, rubs, systolic murmur
--- NOTE | 2016-09-27 15:47 | Physician Discharge Referral ---
Home Health/Hosp Referral Info Transfer to: Home Health Attending Provider: Celeste Keys Provider in Charge Post Discharge: PCP - Diagnosis (1) Pneumonia Priority: Primary Status: Acute (2) Acute exacerbation of chronic obstructive pulmonary disease (COPD) Priority: Primary Status: Acute (3) Suicidal thoughts Priority: Primary Status: Resolved (4) Hypothyroidism Priority: Secondary Status: Chronic (5) Acute and chronic respiratory failure Priority: Primary Status: Acute (6) Hypertension Priority: Secondary Status: Chronic (7) Anxiety Priority: Secondary Status: Chronic (8) CAD (coronary artery disease) Priority: Secondary Status: Chronic (9) Tobacco abuse Priority: Secondary Status: Chronic - Respiratory Orders Oxygen / L per min (2-3L/min) Smoking Cessation: Smoking cessation has been advised. For more information, call the [employer] Quit Line at 9-495-QZBG-NOW. - Diet/Nutrition Diet/Nutrition Orders: Cardiac - Activity Activity Orders: Ambulate - Services Needed Following services are medically necessary services: Nursing, Physical Therapy, Occupational Therapy - Transfer Medications Prescriptions: Levofloxacin [Levaquin] 500 mg PO Q24H #4 tablet Mirtazapine [Remeron] 15 mg PO HS #20 tablet PredniSONE 20 mg PO BIDWM 5 Days Home Medications: Ipratropium/Albuterol Sulfate [Combivent Respimat Inhal [place]] 2 puff IH DAILY 03/05/16 [History] Levothyroxine Sodium [Tirosint] 50 mcg PO DAILY 03/05/16 [History] Metoprolol [Lopressor] 25 mg PO BID 03/05/16 [History] Amlodipine [Norvasc] 5 mg PO DAILY #30 tablet 05/10/16 [Rx] Ticagrelor [Brilinta] 90 mg PO BID #30 tablet 05/10/16 [Rx] Albuterol Sulfate [Albuterol Inhaler] 2 puff IH Q4H PRN 09/22/16 [History] Aspirin 81 mg PO DAILY 09/22/16 [History] Potassium Chloride 10 meq PO DAILY 09/22/16 [History] HydrOXYzine 10 mg PO HS PRN #0 tablet 09/27/16 [Rx] Levofloxacin [Levaquin] 500 mg PO Q24H #4 tablet 09/27/16 [Rx] Mirtazapine [Remeron] 15 mg PO HS #20 tablet 09/27/16 [Rx] PredniSONE 20 mg PO BIDWM 5 Days 09/27/16 [Rx] Saline Nasal [place] [[place] Nasal [place]] 2 spray NS Q2H PRN #0 bottle 09/27/16 [Rx ] Sertraline [Zoloft] 25 mg PO DAILY tablet 09/27/16 [Rx] Simvastatin [Zocor] 40 mg PO HS tablet 09/27/16 [Rx] Allergies/Adverse Reactions: Allergies clopidogrel [From Plavix] Allergy (Verified 09/22/16 08:27) Itching Certification: Further, I certify that my clinical findings support that this patient is homebound (i.e. absences from home require considerable and taxing effort and are for medical reasons or muslim services or infrequently or short duration when for other reasons) because: Homebound Reason: Severity of cardiac or pulmonary status limits activity tolerance Attestation: My signature below is to certify that this patient is under my care and that I, or nurse practitioner, or a physician's certified physician assistant working with me, has a face-to -face encounter with this patient.
[2016-09-27] MEDS: Ibuprofen 400 MG TABLET PO PRN (16:29)
[2016-09-27] MEDS ORDERED: Aminoglycoside Consult 1 EACH MC ONE (18:49)
== END 2016-09-27 18:50 | disposition home or self-care (01) | DRG 190 ==
LOC: 2NENU 23:06 → EMEROO 23:06 → 2NENU 09-22 05:10 → SUATTDRO 09-22 07:36
PROVIDERS: ADMIT Pediatrics; ATTEND Internal Medicine

== ENCOUNTER 2016-11-18 19:32 | Inpatient (IN) ==
[2016-11-18] MEDS ORDERED: Ipratropium/Albuterol Neb 3 ML IH ONE (19:54)
[2016-11-18] MEDS ORDERED: Albuterol 2.5 MG/3 ML NEBULIZER IH ONE (19:54)
[2016-11-18] MEDS ORDERED: methylPREDNISolone 125 MG/2 ML VIAL IVP ONE (19:54)
--- NOTE | 2016-11-18 19:54 | Emergency Department Note ---
START Narrative - START START: I, Fausto Blanc, examined this patient and my medical decision-making was reviewed with the T[place]NSHIP CLERK/PA/Advanced Practice Nurse/Resident Physician. I agree with the documented findings, disposition and treatment plan as described except to the extent set forth below. 66 yo female presents with SOB x2 wks. Progressively worse. Associated with worsening wheezing. Uses 3-4L O2 at home for chronic COPD, needing more at home. worsening cough, nonproductive, no hemoptysis. +fever of 101 yesterday. Took ibuprofen today. Uses combivent and albuterol. no daily prednisone. 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 +chest pain in the Lower left chest worse with coughing, movement and palpation. +current smoker. Patient improved mildly after administration of DuoNeb to the emergency department. However she is still dyspneic with conversation. Patient has chest x-ray concerning for possible infiltrate consistent with pneumonia. Patient will be admitted to the hospital for further care and evaluation after administration of healthcare associated pneumonia antibiotics
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
[2016-11-18] MEDS ORDERED: *HR* Morphine 2 MG/ML SYRINGE IV ONE (20:35)
[2016-11-18 20:37] LABS: Basophils % 0.5 %; Eosinophils # 0.6 K/mcL (0.0-0.6); Hematocrit 30.8 % (35.3-44.9); Hemoglobin 9.3 g/dL (11.5-15.4); Immature Granulocytes % 0.5 % (0-4); Lymphocytes # 1.1 K/mcL (0.6-4.6); Lymphocytes % 12.6 %; Mean Corpuscular HGB Conc 30.2 g/dL (31.6-35.5); Mean Corpuscular Hemoglobin 26.6 pg (28.0-33.3); Mean Corpuscular Volume 88.3 fL (83.0-100.0); Mean Platelet Volume 9.2 fL (9.4-12.4); Monocytes # 0.8 K/mcL (0.0-1.3); Monocytes % 9.7 %; Neutrophils # 5.8 K/mcL (1.6-8.9); Platelet Count 294 K/mcL (140-400); Red Blood Count 3.49 M/mcL (3.82-4.97); Red Cell Distribution Width 15.3 % (11.5-14.5); Segmented Neutrophils % 69.7 %
[2016-11-18 20:49] LABS: BUN/Creatinine Ratio 12 (6-26); Blood Urea Nitrogen 9 mg/dL (7-20); Calcium 9.4 mg/dL (8.6-10.8); Carbon Dioxide 33 mEq/L (19-29); Chloride 96 mEq/L (98-109); Glucose 113 mg/dL (70-99); Osmolality,Calculated 283 (280-300); Potassium 3.6 mEq/L (3.5-4.5); Sodium 137 mEq/L (136-145); eGFR For African Americans > 60 (> 60); eGFR For Non-African Americans > 60 (> 60)
[2016-11-18] MEDS ORDERED: Piperacillin/Tazobactam 4.5 GM in D5% in Water (Mini-Bag+) 100 ML IVPB ONE ×2 (22:37→22:38)
[2016-11-18] MEDS ORDERED: Vancomycin 1,000 MG in D5% in Water 250 ML IVPB ONE (22:38)
[2016-11-18] MEDS ORDERED: Azithromycin 500 MG in D5% in Water 250 ML IVPB ONE (22:38)
[2016-11-18] MEDS ORDERED: Naloxone 0.4 MG/ML INJ IVP PRN (23:06)
[2016-11-18] MEDS ORDERED: Ondansetron 4 MG/2 ML VIAL IVP PRN (23:06)
--- NOTE | 2016-11-18 23:12 | Internal Med History&Physical ---
Date of Encounter: 11/18/16 Time of Encounter: 23:10 Assessment and Plan (1) Acute exacerbation of chronic obstructive pulmonary disease (COPD) Current visit: No Status: Acute acute on chronic hypoxic respiratory failure secondary to acute COPD exacerbation due to healthcare associated pneumonia present upon admission Continue with azithromycin and cefepime, may add or continue vancomycin the blood pressure drops Continue Solu-Medrol IV, DuoNeb's and oxygen therapy Order an ABG Omeprazole for GI prophylaxis and subcutaneous tennis hyperinflated to prophylaxis. Admitted as inpatient, expected to stay more than to mid 90s. Full code. Time spent on this admission 40 minutes. High risk for respiratory failure (2) Hypertension Current visit: No Status: Chronic Stable, hold amlodipine For now Qualifiers: Hypertension type: essential hypertension Qualified Code(s): I10 - Essential (primary) hypertension (3) CAD (coronary artery disease) Current visit: No Status: Chronic Continue aspirin and brilinta Metoprolol Qualifiers: Coronary Disease-Associated Artery/Lesion type: [place] artery [place] vs. transplanted heart: [place] heart Associated angina: without angina Qualified Code(s): I25.10 - Atherosclerotic heart disease of [place] coronary artery without angina pectoris (4) Tobacco abuse Current visit: No Status: Chronic smoking cessation counseling given for 5 min. nicotine patch (5) Acute exacerbation of COPD with asthma Current visit: No Status: Acute (6) Anemia Current visit: No Status: Chronic likely chronic monitor CBC in am Qualifiers: Anemia type: unspecified type Qualified Code(s): D64.9 - Anemia, unspecified (7) HCAP (healthcare-associated pneumonia) Current visit: No Status: Acute (8) Hypothyroidism Current visit: No Status: Chronic stable on levothyroxine Qualifiers: Hypothyroidism type: unspecified Qualified Code(s): E03.9 - Hypothyroidism , unspecified Internal Medicine - H&P: HPI Chief complaint: Shortness of breath Admitted From: Emergency Dept History of present illness: Ms. Mckeon is a 66 year old female with a past medical history of COPD oxygen dependent, tobacco use, CAD, GI bleed who was recently discharged from the hospital febrile 28 which she was treated for COPD exacerbation and healthcare associated pneumonia. Patient says that she has been more short of breath for the past 2-3 weeks, having a dry cough, her chest x-ray shows bibasilar opacities compatible with pneumonia. She has been complaining of subjective fevers at home, requiring high amounts of oxygen and is still saturating 88%. Down in the emergency room she was started on Zosyn and azithromycin and vancomycin. She was also given Solu-Medrol. Denies any sick contacts. Complains of pleuritic chest pain on the left side from coughing Past Med Surg Social Fam HX - Past Medical History Medical history: cancer (Right upper lobectomy due to lung cancer status post chemotherapy), COPD (Oxygen dependent using 3 L at home, chronic respiratory failure), coronary artery disease, GI bleed, hypertension, other (Healthcare associated pneumonia, hyponatremia, CAD, hyperlipidemia, depression, anxiety, tobacco use, hypothyroidism) Psychiatric history: anxiety, depression - Past Surgical History Surgical History: appendectomy, cancer surgery (Right upper lobectomy), cholecystectomy, SHERICE/BSO, other - Social History Smoking Status: Current every day smoker Packs per day: Half a pack per day Smokeless Tobacco Status: No Alcohol use: none Drug use: none - Family History Mother Adopted: No Living Status: Hx Family Cardiac Disorders: No Hx Family Respiratory Disorders: Yes (COPD) Hx Family Cancer: No Hx Family GI Disorders: No Hx Family Endocrine Disorder: No Hx Family Neuromuscular Disorders: No Hx Family Neurologic Disorders: No Hx Family HEENT Disorders: No Hx Family Autoimmune Disorders: No Father Adopted: No Living Status: Hx Family Cardiac Disorders: No Hx Family Respiratory Disorders: No Hx Family Cancer: No Hx Family GI Disorders: No Hx Family Endocrine Disorder: No Hx Family Neuromuscular Disorders: No Hx Family Neurologic Disorders: No Hx Family HEENT Disorders: No Hx Family Autoimmune Disorders: No Sister Adopted: No Living Status: Still Living Hx Family Cardiac Disorders: No Hx Family Respiratory Disorders: No Hx Family Cancer: No Hx Family GI Disorders: No Hx Family Endocrine Disorder: No Hx Family Neuromuscular Disorders: No Hx Family Neurologic Disorders: Yes ([place]) Hx Family HEENT Disorders: No Hx Family Autoimmune Disorders: No Brother Adopted: No Living Status: Still Living Hx Family Cardiac Disorders: No Hx Family Respiratory Disorders: No Hx Family Cancer: No Hx Family GI Disorders: No Hx Family Endocrine Disorder: No Hx Family Neuromuscular Disorders: No Hx Family Neurologic Disorders: No Hx Family HEENT Disorders: No Hx Family Autoimmune Disorders: No - Additional Family History Additional family history: Mother with COPD Internal Medicine - H&P: Meds Ipratropium/Albuterol Sulfate [Combivent Respimat Inhal [place]] 2 puff IH Q6H 01/13 [History] Metoprolol [Lopressor] 25 mg PO BID 03/05/16 [History] Amlodipine [Norvasc] 5 mg PO DAILY #30 tablet 05/10/16 [Rx] Ticagrelor [Brilinta] 90 mg PO BID #30 tablet 05/10/16 [Rx] Albuterol Sulfate [Albuterol Inhaler] 2 puff IH Q4H PRN 09/22/16 [History] Aspirin 81 mg PO DAILY 09/22/16 [History] Potassium Chloride 10 meq PO DAILY 09/22/16 [History] Alprazolam [Xanax 0.25 MG Tablet] 0.25 mg PO TID PRN #20 tablet 09/27/16 [Rx] Saline Nasal [place] [[place] Nasal [place]] 2 spray NS Q2H PRN #0 bottle 09/27/16 [Rx ] Levothyroxine [Synthroid] 50 mcg PO QAM 11/18/16 [History] Pravastatin Sodium [Pravachol] 40 mg PO HS 11/18/16 [History] Allergies clopidogrel [From Plavix] Allergy (Verified 09/22/16 08:27) Itching codeine Allergy (Verified 11/18/16 20:44) Itching All Systems PM: A 10-system review of systems was performed and is negative for pertinent findings except as documented above in the HPI. Review of systems: Feels very short of breath, is very weak. Other systems out of the 10 reviewed were negative - Constitutional Vitals: Temp Pulse Resp BP Pulse Ox 98.4 F 88 18 147/84 99 11/18/16 19:34 11/18/16 22:02 11/18/16 22:02 11/18/16 22:02 11/18/16 22:02 General appearance: Present: cachectic, A&O X 3 - Head Head exam: Present: atraumatic, normocephalic - Eye Eye exam: Present: PERRL, conjuntiva pink, sclera anicteric Pupils: Present: PERRL - Neck Neck exam general surgery: Present: supple, trachea midline. Absent: lymphadenopathy - Respiratory Respiratory exam: Present: CTAB, rales, wheezes (Diffuse crackles and wheezing) . Absent: accessory muscle use, rhonchi - Cardiovascular Cardiovascular exam: Present: RRR, +S1, +S2. Absent: diastolic murmur, gallop, rubs, systolic murmur - GI/Abdominal GI/Abdominal exam: Present: normal bowel sounds, soft, no peritoneal signs. Absent: distended, tenderness - Extremities Exam Extremities exam: Present: warm, radial pulses palpable and symetrical. Absent : calf tenderness, cyanotic, pedal edema - Neurological Exam Neurological exam: Present: CN II-XII intact, oriented X3, no focal deficits. Absent: pronater drift, facial droop, speech deficit - Skin Skin exam: Present: dry, intact Internal Med - H&P Results - Labs CBC & Chem 7: 11/18/16 20:28 11/18/16 20:28 Labs: Short CBC 11/18/16 Range/Units 20:28 WBC 8.3 (4.3-11.1) K/mcL Hgb 9.3 L (11.5-15.4) g/dL Hct 30.8 L (35.3-44.9) % Plt Count 294 (140-400) K/mcL Neutrophils # 5.8 (1.6-8.9) K/mcL BMP 11/18/16 20:28 Sodium 137 Potassium 3.6 Chloride 96 L Carbon Dioxide 33 H BUN 9 Creatinine 0.73 Glucose 113 H Calcium 9.4 Cardiac Enzymes 11/18/16 Range/Units 20:28 Troponin I 0.01 (0-0.03) ng/mL - Impressions ITS Impressions Chest X-Ray 11/18/16 19:55 IMPRESSION: Persistent bibasilar airspace disease compatible with pneumonia. Recommend follow-up to complete resolution. D/ / 11/18/2016 20:27:42 Yong Parra MD / [facility] Interpreting Provider: Yong Parra MD
[2016-11-19] MEDS: Ipratropium/Albuterol Neb 3 ML IH SCH ×7 (00:31→23:41)
[2016-11-19] MEDS: 0.9 % Sodium Chloride 1,000 ML IVC SCH ×2 (00:37→12:49)
[2016-11-19] MEDS: Nicotine 21 MG PATCH.TD24 TD SCH ×2 (00:40→22:44)
[2016-11-19] MEDS: methylPREDNISolone 125 MG/2 ML VIAL IV SCH ×4 (00:42→22:45)
[2016-11-19] MEDS: *HR* Morphine 2 MG/ML SYRINGE IVP PRN ×4 (01:05→22:59)
[2016-11-19] MEDS ORDERED: Cefepime HCl 1,000 MG in D5% in Water (Mini-Bag+) 100 ML IVPB SCH (06:00)
[2016-11-19 06:18] LABS: Basophils % 0.1 %; Hematocrit 31.1 % (35.3-44.9); Hemoglobin 9.2 g/dL (11.5-15.4); Immature Granulocytes % 0.8 % (0-4); Lymphocytes # 0.3 K/mcL (0.6-4.6); Lymphocytes % 3.5 %; Mean Corpuscular HGB Conc 29.6 g/dL (31.6-35.5); Mean Corpuscular Hemoglobin 26.3 pg (28.0-33.3); Mean Corpuscular Volume 88.9 fL (83.0-100.0); Mean Platelet Volume 9.3 fL (9.4-12.4); Monocytes # 0.1 K/mcL (0.0-1.3); Monocytes % 0.9 %; Neutrophils # 7.5 K/mcL (1.6-8.9); Platelet Count 322 K/mcL (140-400); Red Cell Distribution Width 15.2 % (11.5-14.5); Segmented Neutrophils % 94.7 %
[2016-11-19] MEDS: *HR* Heparin 5,000 UNIT/ML VIAL SQ SCH ×2 (06:18→17:29)
[2016-11-19 06:36] LABS: BUN/Creatinine Ratio 11 (6-26); Blood Urea Nitrogen 8 mg/dL (7-20); Carbon Dioxide 34 mEq/L (19-29); Chloride 96 mEq/L (98-109); Glucose 111 mg/dL (70-99); Magnesium 1.9 mg/dL (1.6-2.6); Osmolality,Calculated 283 (280-300); Potassium 4.4 mEq/L (3.5-4.5); Sodium 137 mEq/L (136-145); eGFR For African Americans > 60 (> 60); eGFR For Non-African Americans > 60 (> 60)
[2016-11-19] MEDS: Aspirin 81 MG TAB.CHEW PO SCH (09:08)
[2016-11-19] MEDS: *HR* Ticagrelor 90 MG TABLET PO SCH ×2 (09:08→22:44)
--- NOTE | 2016-11-19 09:51 | Internal Med Progress Note ---
Addendum entered and electronically signed by Jak Fairchild DO 11/19/16 14:31: Note: Normocytic anemia but with elevated RDW so may have superimposed vit and iron deficiencies. Ferritin < 50 per last panel March 2016. Last C-scope February [address] Olivo disclosed no abnormalities. Will order for iron panel, ferritin, B-12/folate for AM. No s/s active bleed. Original Note: <Jak Fairchild - Last Filed: 11/19/16 13:31> Date of Encounter: 11/19/16 Time of Encounter: 09:30 - Assessment and plan (1) Acute exacerbation of chronic obstructive pulmonary disease (COPD) Current Visit: No Status: Acute Assessment and plan: Suggested by worsening dyspnea, and sputum character. BC x 2 pending, sputum culture if able. Cont systemic steroids, will deescalate to prednisone 40mg PO QD starting tomorrow. Cont azithromycin and cefepime. (2) Community acquired pneumonia Current Visit: Yes Status: Acute Assessment and plan: Per above, evidenced on CXR Chest X-Ray 11/18/16 19:55 IMPRESSION: Persistent bibasilar airspace disease compatible with pneumonia. Recommend follow-up to complete resolution. (3) Chronic respiratory failure with hypercapnia Current Visit: Yes Status: Chronic Assessment and plan: Has known COPD with LTOT 3L NC, also with chemistry bicarb 34. Cont to monitor. Cont 3L NC supp O2 for sat >88% (4) Current smoker Current Visit: Yes Status: Acute Assessment and plan: Counseled on smoking cessation, cont nicoderm. (5) CAD (coronary artery disease) Current Visit: Yes Status: Chronic Assessment and plan: Cont ASA, Statin, BB Qualifiers: Coronary Disease-Associated Artery/Lesion type: [place] artery [place] vs. transplanted heart: [place] heart Associated angina: without angina Qualified Code(s): I25.10 - Atherosclerotic heart disease of [place] coronary artery without angina pectoris (6) DVT prophylaxis Current Visit: Yes Status: Acute Assessment and plan: Heparin 5000 U SC BID - Subjective Interval history: Pt seen/eval, she affirms events prompting hospitalization. Smokes 1/2 ppd since early teens, would endorse LTOT 3LNC at home, no sick contacts. Today she has some pleurisy and nonproductive cough. No chest pressure/palp/pause, fever, chills, nvd. - Constitutional Vitals: Temp Pulse Resp BP Pulse Ox 98.2 F 92 17 143/88 95 11/19/16 08:48 11/19/16 08:48 11/19/16 08:48 11/19/16 08:48 11/19/16 08:48 General appearance: Present: cachectic, A&O X 3 - Head Head exam: Present: atraumatic, normocephalic - Eye Eye exam: Present: EOMI, sclera anicteric - ENT ENT exam: Present: mucous membranes moist - Neck Neck exam general surgery: Present: supple, trachea midline - Respiratory Respiratory exam: Present: prolonged expiratory phase, rhonchi (all [place]), wheezes (mild). Absent: accessory muscle use - Cardiovascular Cardiovascular exam: Present: +S1, +S2. Absent: JVD - GI/Abdominal GI/Abdominal exam: Present: soft, no peritoneal signs. Absent: tenderness - Extremities Exam Extremities exam: Present: warm, radial pulses palpable and symetrical. Absent : pedal edema Internal Medicine: Result - Labs CBC & Chem 7: 11/19/16 05:51 11/19/16 05:51 Labs: Short CBC 11/19/16 Range/Units 05:51 WBC 7.9 (4.3-11.1) K/mcL Hgb 9.2 L (11.5-15.4) g/dL Hct 31.1 L (35.3-44.9) % Plt Count 322 (140-400) K/mcL Neutrophils # 7.5 (1.6-8.9) K/mcL BMP 11/19/16 05:51 Sodium 137 Potassium 4.4 Chloride 96 L Carbon Dioxide 34 H BUN 8 Creatinine 0.73 Glucose 111 H Calcium 9.0 Consult Discharge Plan - Plan Referrals: Imtiaz Alicea [Primary Care Provider] - <Uriel Garcia - Last Filed: 11/19/16 18:11> Date of Encounter: 11/19/16 - Assessment and plan (1) Acute and chronic respiratory failure Current Visit: Yes Status: Acute Assessment and plan: Oxygen supplementation. Qualifiers: Respiratory failure complication: hypoxia Qualified Code(s): J96.21 - Acute and chronic respiratory failure with hypoxia (2) Acute exacerbation of chronic obstructive airways disease Current Visit: Yes Status: Acute Assessment and plan: Aerosols, steroids, oxygen (3) Community acquired pneumonia Current Visit: Yes Status: Acute (4) CAD (coronary artery disease) Current Visit: Yes Status: Chronic Qualifiers: Coronary Disease-Associated Artery/Lesion type: [place] artery [place] vs. 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 Current Visit: No Status: Acute - Constitutional Vitals: Temp Pulse Resp BP Pulse Ox 98.1 F 85 16 149/88 99 11/19/16 15:00 11/19/16 15:00 11/19/16 16:02 11/19/16 15:00 11/19/16 16:02 Internal Medicine: Result - Labs CBC & Chem 7: 11/19/16 05:51 11/19/16 05:51 Labs: Short CBC 11/19/16 Range/Units 05:51 WBC 7.9 (4.3-11.1) K/mcL Hgb 9.2 L (11.5-15.4) g/dL Hct 31.1 L (35.3-44.9) % Plt Count 322 (140-400) K/mcL Neutrophils # 7.5 (1.6-8.9) K/mcL BMP 11/19/16 05:51 Sodium 137 Potassium 4.4 Chloride 96 L Carbon Dioxide 34 H BUN 8 Creatinine 0.73 Glucose 111 H Calcium 9.0 - Attending Attestation I examined this patient and my medical decision-making was reviewed with the Resident Physician on 11/19/16. I agree with the documented findings, disposition and treatment plan as described except to the extent set forth below. Ms. Mckeon is currently admitted for acute exac COPD and pneumonia. She is high risk due to potential for further respiratory issues. Ms. Mckeon is comfortable in chair. She denies issues except anxiety. No CP. Some dyspnea but better after aerosols. No fever or chills. Exam Alert. Comfortable Heart reg Lungs with diffuse end exp wheeze I/P 1. Acute exac COPD 2. PNA Further diagnoses and plan as above.
[2016-11-19] MEDS ORDERED: Ipratropium/Albuterol Neb 3 ML IH ONE (10:29)
[2016-11-19] MEDS ORDERED: Ipratropium/Albuterol Neb 3 ML IH PRN (10:30)
[2016-11-19] MEDS: ALPRAZolam 0.25 MG TABLET PO PRN ×3 (11:12→23:58)
[2016-11-19] MEDS: Azithromycin 500 MG in D5% in Water 250 ML IVPB SCH (22:43)
[2016-11-20] MEDS: Albuterol 2.5 MG/3 ML NEBULIZER IH PRN ×4 (00:21→22:03)
[2016-11-20] MEDS: Ipratropium/Albuterol Neb 3 ML IH SCH ×5 (04:17→19:35)
[2016-11-20] MEDS: 0.9 % Sodium Chloride 1,000 ML IVC SCH ×2 (05:53→16:29)
[2016-11-20] MEDS: Cefepime HCl 1,000 MG in D5% in Water (Mini-Bag+) 100 ML IVPB SCH (05:54)
[2016-11-20] MEDS: *HR* Heparin 5,000 UNIT/ML VIAL SQ SCH ×2 (05:54→16:29)
[2016-11-20] MEDS: ALPRAZolam 0.25 MG TABLET PO PRN ×3 (06:06→22:52)
[2016-11-20 07:41] LABS: Basophils % 0.1 %; Hemoglobin 9.4 g/dL (11.5-15.4)
[2016-11-20 07:43] LABS: Immature Granulocytes % 1.3 % (0-4); Lymphocytes # 0.6 K/mcL (0.6-4.6); Lymphocytes % 4.2 %; Mean Corpuscular HGB Conc 29.4 g/dL (31.6-35.5); Mean Corpuscular Hemoglobin 26.6 pg (28.0-33.3); Mean Corpuscular Volume 90.7 fL (83.0-100.0); Mean Platelet Volume 9.7 fL (9.4-12.4); Monocytes # 0.3 K/mcL (0.0-1.3); Monocytes % 2.3 %; Neutrophils # 13.1 K/mcL (1.6-8.9); Platelet Count 382 K/mcL (140-400); Red Blood Count 3.53 M/mcL (3.82-4.97); Red Cell Distribution Width 15.1 % (11.5-14.5); Segmented Neutrophils % 92.1 %
[2016-11-20 09:16] LABS: Platelet Estimate Normal (Normal)
[2016-11-20 09:17] LABS: Hypochromasia Present (Not Present)
[2016-11-20] MEDS: Aspirin 81 MG TAB.CHEW PO SCH (09:43)
[2016-11-20] MEDS: *HR* Ticagrelor 90 MG TABLET PO SCH ×2 (09:43→19:39)
[2016-11-20] MEDS: predniSONE 20 MG TABLET PO SCH (09:43)
--- NOTE | 2016-11-20 09:43 | Internal Med Progress Note ---
<Jak Fairchild - Last Filed: 11/20/16 12:05> Date of Encounter: 11/20/16 Time of Encounter: 09:00 - Assessment and plan (1) Acute exacerbation of chronic obstructive pulmonary disease (COPD) Current Visit: No Status: Acute Assessment and plan: Suggested by worsening dyspnea, and sputum character. BC x 2 pending, sputum culture if able. Cont prednisone 40mg PO QD starting tomorrow. Cont azithromycin and cefepime. (2) Community acquired pneumonia Current Visit: Yes Status: Acute Assessment and plan: Per above, evidenced on CXR Chest X-Ray 11/18/16 19:55 IMPRESSION: Persistent bibasilar airspace disease compatible with pneumonia. Recommend follow-up to complete resolution. (3) Chronic respiratory failure with hypercapnia Current Visit: Yes Status: Chronic Assessment and plan: Has known COPD with LTOT 3L NC, also with chemistry bicarb 34. Cont to monitor. Cont 3L NC supp O2 for sat >88% (4) Current smoker Current Visit: Yes Status: Acute Assessment and plan: Counseled on smoking cessation, cont nicoderm. (5) CAD (coronary artery disease) Current Visit: Yes Status: Chronic Assessment and plan: Cont ASA, Statin, BB Qualifiers: Coronary Disease-Associated Artery/Lesion type: [place] artery [place] vs. transplanted heart: [place] heart Associated angina: without angina Qualified Code(s): I25.10 - Atherosclerotic heart disease of [place] coronary artery without angina pectoris (6) DVT prophylaxis Current Visit: Yes Status: Acute Assessment and plan: Heparin 5000 U SC BID - Subjective Interval history: Pt seen/eval, she is resting comfortably, voices no concerns. - Constitutional Vitals: Temp Pulse Resp BP Pulse Ox 97.6 F 83 18 128/83 98 11/20/16 07:00 11/20/16 07:58 11/20/16 07:59 11/20/16 07:58 11/20/16 07:59 General appearance: Present: cachectic, A&O X 3 - Head Head exam: Present: atraumatic, normocephalic - Eye Eye exam: Present: EOMI, sclera anicteric - ENT ENT exam: Present: mucous membranes moist - Neck Neck exam general surgery: Present: supple, trachea midline - Respiratory Respiratory exam: Present: prolonged expiratory phase, rhonchi (basilar ronchi) , wheezes (mild). Absent: accessory muscle use - Cardiovascular Cardiovascular exam: Present: +S1, +S2. Absent: JVD - GI/Abdominal GI/Abdominal exam: Present: soft, no peritoneal signs. Absent: tenderness - Extremities Exam Extremities exam: Present: warm, radial pulses palpable and symetrical. Absent : pedal edema Internal Medicine: Result - Labs CBC & Chem 7: 11/20/16 06:44 11/20/16 06:44 Labs: Short CBC 11/20/16 Range/Units 06:44 WBC 14.2 H D (4.3-11.1) K/mcL Hgb 9.4 L (11.5-15.4) g/dL Hct 32.0 L (35.3-44.9) % Plt Count 382 (140-400) K/mcL Neutrophils # 13.1 H (1.6-8.9) K/mcL Consult Discharge Plan - Plan Referrals: Imtiaz Alicea [Primary Care Provider] - <Uriel Garcia - Last Filed: 11/20/16 17:50> Date of Encounter: 11/20/16 - Assessment and plan (1) Acute and chronic respiratory failure Current Visit: Yes Status: Acute Assessment and plan: Wean oxygen as tolerated. Qualifiers: Respiratory failure complication: hypoxia Qualified Code(s): J96.21 - Acute and chronic respiratory failure with hypoxia (2) Acute exacerbation of chronic obstructive airways disease Current Visit: Yes Status: Acute Assessment and plan: Aerosols, steroids, abx and supportive care. (3) Community acquired pneumonia Current Visit: Yes Status: Acute (4) CAD (coronary artery disease) Current Visit: Yes Status: Chronic Qualifiers: Coronary Disease-Associated Artery/Lesion type: [place] artery [place] vs. 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 Current Visit: No Status: Acute Assessment and plan: PRN Xanax - Constitutional Vitals: Temp Pulse Resp BP Pulse Ox 97.8 F 83 1 138/89 100 11/20/16 15:00 11/20/16 15:00 11/20/16 15:59 11/20/16 15:59 11/20/16 15:59 Internal Medicine: Result - Labs CBC & Chem 7: 11/20/16 06:44 11/20/16 06:44 Labs: Short CBC 11/20/16 Range/Units 06:44 WBC 14.2 H D (4.3-11.1) K/mcL Hgb 9.4 L (11.5-15.4) g/dL Hct 32.0 L (35.3-44.9) % Plt Count 382 (140-400) K/mcL Neutrophils # 13.1 H (1.6-8.9) K/mcL BMP 11/20/16 06:44 Sodium 135 L Potassium 4.3 Chloride 100 Carbon Dioxide 27 BUN 16 Creatinine 0.79 Glucose 164 H Calcium 8.7 - Attending Attestation I examined this patient and my medical decision-making was reviewed with the Resident Physician on 11/20/16. I agree with the documented findings, disposition and treatment plan as described except to the extent set forth below. Ms. Mckeon is currently admitted for acute exac COPD and pneumonia. She is moderate to high risk due to potential for worsening resp status. Ms. Mckeon is more wheezy today. She is less tight. No pain but feels anxious and wants her Xanax. No GI symptoms. Slept OK last night. Exam Alert. Comfortable in bed Heart reg - tachy Lungs with diffuse wheeze. Abd soft No edema I/P 1. Acute exac COPD 2. Pneumonia 3. Anxiety Further diagnoses and plan as above.
[2016-11-20 10:48] LABS: % Iron Saturation 5 % (15-50); BUN/Creatinine Ratio 20 (6-26); Blood Urea Nitrogen 16 mg/dL (7-20); Calcium 8.7 mg/dL (8.6-10.8); Carbon Dioxide 27 mEq/L (19-29); Chloride 100 mEq/L (98-109); Glucose 164 mg/dL (70-99); Iron 20 mcg/dL (50-170); Magnesium 2.1 mg/dL (1.6-2.6); Osmolality,Calculated 285 (280-300); Potassium 4.3 mEq/L (3.5-4.5); Sodium 135 mEq/L (136-145); Transferrin 308 mg/dL (180-382); eGFR For African Americans > 60 (> 60); eGFR For Non-African Americans > 60 (> 60)
[2016-11-20 11:05] LABS: Ferritin 36 ng/ml (5-204)
[2016-11-20] MEDS: *HR* Morphine 2 MG/ML SYRINGE IVP PRN ×2 (16:33→21:57)
[2016-11-20] MEDS: Nicotine 21 MG PATCH.TD24 TD SCH (19:38)
[2016-11-20] MEDS: Acetaminophen 325 MG TABLET PO PRN (19:49)
--- NOTE | 2016-11-20 20:08 | Electrocardiograph Report ---
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
[2016-11-20] MEDS: Azithromycin 500 MG in D5% in Water 250 ML IVPB SCH (21:56)
[2016-11-21] MEDS: Ipratropium/Albuterol Neb 3 ML IH SCH ×7 (00:03→23:46)
[2016-11-21] MEDS: *HR* Morphine 2 MG/ML SYRINGE IVP PRN ×4 (04:08→22:20)
[2016-11-21 04:51] LABS: Basophils % 0.1 %
[2016-11-21 05:00] LABS: BUN/Creatinine Ratio 26 (6-26); Blood Urea Nitrogen 18 mg/dL (7-20); Calcium 8.2 mg/dL (8.6-10.8); Carbon Dioxide 27 mEq/L (19-29); Chloride 106 mEq/L (98-109); Glucose 80 mg/dL (70-99); Osmolality,Calculated 289 (280-300); Potassium 3.8 mEq/L (3.5-4.5); Sodium 139 mEq/L (136-145); eGFR For African Americans > 60 (> 60); eGFR For Non-African Americans > 60 (> 60)
[2016-11-21 05:01] LABS: Hematocrit 27.3 % (35.3-44.9); Immature Granulocytes % 0.9 % (0-4); Lymphocytes # 0.6 K/mcL (0.6-4.6); Lymphocytes % 5.2 %; Mean Corpuscular HGB Conc 29.3 g/dL (31.6-35.5); Mean Corpuscular Hemoglobin 26.8 pg (28.0-33.3); Mean Corpuscular Volume 91.3 fL (83.0-100.0); Mean Platelet Volume 9.7 fL (9.4-12.4); Monocytes # 0.8 K/mcL (0.0-1.3); Monocytes % 7.1 %; Neutrophils # 9.9 K/mcL (1.6-8.9); Platelet Count 313 K/mcL (140-400); Red Blood Count 2.99 M/mcL (3.82-4.97); Red Cell Distribution Width 15.3 % (11.5-14.5); Segmented Neutrophils % 86.7 %
[2016-11-21] MEDS: Cefepime HCl 1,000 MG in D5% in Water (Mini-Bag+) 100 ML IVPB SCH (05:49)
[2016-11-21] MEDS: *HR* Heparin 5,000 UNIT/ML VIAL SQ SCH ×2 (05:53→16:45)
[2016-11-21 06:04] LABS: Hypochromasia Present (Not Present); Platelet Estimate Normal (Normal)
[2016-11-21] MEDS: 0.9 % Sodium Chloride 1,000 ML IVC SCH (06:46)
[2016-11-21] MEDS: ALPRAZolam 0.25 MG TABLET PO PRN ×2 (08:29→20:50)
[2016-11-21] MEDS: *HR* Ticagrelor 90 MG TABLET PO SCH ×2 (08:30→20:23)
[2016-11-21] MEDS: Renal Vitamin 1 MG CAPSULE PO SCH (08:30)
[2016-11-21] MEDS: predniSONE 20 MG TABLET PO SCH (08:30)
[2016-11-21] MEDS: Aspirin 81 MG TAB.CHEW PO SCH (08:30)
--- NOTE | 2016-11-21 08:54 | Internal Med Progress Note ---
<Jak Fairchild - Last Filed: 11/21/16 09:23> Date of Encounter: 11/21/16 Time of Encounter: 08:25 - Assessment and plan (1) Acute exacerbation of chronic obstructive pulmonary disease (COPD) Current Visit: No Status: Acute Assessment and plan: Suggested by worsening dyspnea, and sputum character. BC x 2 pending, sputum culture if able. Cont prednisone 40mg PO QD Cont azithromycin and cefepime. (2) Community acquired pneumonia Current Visit: Yes Status: Acute Assessment and plan: Per above, evidenced on CXR Chest X-Ray 11/18/16 19:55 IMPRESSION: Persistent bibasilar airspace disease compatible with pneumonia. Recommend follow-up to complete resolution. (3) Chronic respiratory failure with hypercapnia Current Visit: Yes Status: Chronic Assessment and plan: Has known COPD with LTOT 3L NC, also with chemistry bicarb 34. Cont to monitor. Cont 3L NC supp O2 for sat >88% (4) Current smoker Current Visit: Yes Status: Acute Assessment and plan: Counseled on smoking cessation, cont nicoderm. (5) CAD (coronary artery disease) Current Visit: Yes Status: Chronic Assessment and plan: Cont ASA, Statin, BB Qualifiers: Coronary Disease-Associated Artery/Lesion type: [place] artery [place] vs. transplanted heart: [place] heart Associated angina: without angina Qualified Code(s): I25.10 - Atherosclerotic heart disease of [place] coronary artery without angina pectoris (6) DVT prophylaxis Current Visit: Yes Status: Acute Assessment and plan: Heparin 5000 U SC BID - Subjective Interval history: Pt seen/eval, she still has cough and wheezing, but improved from previous. No fever, chills, nvd. - Constitutional Vitals: Temp Pulse Resp BP Pulse Ox 98.4 F 82 18 162/93 100 11/21/16 06:43 11/21/16 06:43 11/21/16 07:33 11/21/16 07:33 11/21/16 07:33 General appearance: Present: cachectic, A&O X 3 - Head Head exam: Present: atraumatic, normocephalic - Eye Eye exam: Present: EOMI, sclera anicteric - ENT ENT exam: Present: mucous membranes moist - Neck Neck exam general surgery: Present: supple, trachea midline - Respiratory Respiratory exam: Present: prolonged expiratory phase, rhonchi, wheezes - Cardiovascular Cardiovascular exam: Present: +S1, +S2. Absent: JVD - Extremities Exam Extremities exam: Present: warm, radial pulses palpable and symetrical Internal Medicine: Result - Labs CBC & Chem 7: 11/21/16 04:17 11/21/16 04:17 Labs: Short CBC 11/20/16 11/21/16 Range/Units 06:44 04:17 WBC 11.4 H (4.3-11.1) K/mcL Hgb 8.0 L (11.5-15.4) g/dL Hct 27.3 L (35.3-44.9) % Plt Count 313 (140-400) K/mcL Neutrophils # 13.1 H 9.9 H (1.6-8.9) K/mcL BMP 11/20/16 11/21/16 06:44 04:17 Sodium 135 L 139 Potassium 4.3 3.8 Chloride 100 106 Carbon Dioxide 27 27 BUN 16 18 Creatinine 0.79 0.70 Glucose 164 H 80 Calcium 8.7 8.2 L Consult Discharge Plan - Plan Referrals: Imtiaz Alicea [Primary Care Provider] - <Uriel Garcia - Last Filed: 11/21/16 19:38> Date of Encounter: 11/21/16 - Assessment and plan (1) Acute and chronic respiratory failure Current Visit: Yes Status: Acute Assessment and plan: Wean oxygen as able. Qualifiers: Respiratory failure complication: hypoxia Qualified Code(s): J96.21 - Acute and chronic respiratory failure with hypoxia (2) Acute exacerbation of chronic obstructive airways disease Current Visit: Yes Status: Acute Assessment and plan: Continue current management. (3) Community acquired pneumonia Current Visit: Yes Status: Acute (4) CAD (coronary artery disease) Current Visit: Yes Status: Chronic Qualifiers: Coronary Disease-Associated Artery/Lesion type: [place] artery [place] vs. 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 - Constitutional Vitals: Temp Pulse Resp BP Pulse Ox 98.7 F 92 19 156/100 98 11/21/16 18:59 11/21/16 18:59 11/21/16 18:59 11/21/16 18:59 11/21/16 18:59 Internal Medicine: Result - Labs CBC & Chem 7: 11/21/16 04:17 11/21/16 04:17 Labs: Short CBC 11/21/16 Range/Units 04:17 WBC 11.4 H (4.3-11.1) K/mcL Hgb 8.0 L (11.5-15.4) g/dL Hct 27.3 L (35.3-44.9) % Plt Count 313 (140-400) K/mcL Neutrophils # 9.9 H (1.6-8.9) K/mcL BMP 11/21/16 04:17 Sodium 139 Potassium 3.8 Chloride 106 Carbon Dioxide 27 BUN 18 Creatinine 0.70 Glucose 80 Calcium 8.2 L - Attending Attestation I examined this patient and my medical decision-making was reviewed with the Resident Physician on 11/21/16. I agree with the documented findings, disposition and treatment plan as described except to the extent set forth below. Ms. Mckeon is currently admitted for acute exac COPD and pneumonia. She is moderate to high risk due to potential for worsening respiratory status. Ms. Mckeon is resting comfortably. Her breathing is about the same. No new issues. No fever or chills. No GI symptoms. Exam Alert. Comfortable Heart reg Diffuse wheeze I/P 1. Acute exac COPD 2. Pneumonia Further diagnoses and plan as above.
[2016-11-21] MEDS: Acetaminophen 325 MG TABLET PO PRN (20:22)
[2016-11-21] MEDS: Nicotine 21 MG PATCH.TD24 TD SCH (20:22)
[2016-11-21] MEDS: Azithromycin 500 MG in D5% in Water 250 ML IVPB SCH (22:21)
[2016-11-22] MEDS: ALPRAZolam 0.25 MG TABLET PO PRN ×2 (00:59→09:08)
[2016-11-22] MEDS: Ipratropium/Albuterol Neb 3 ML IH SCH ×3 (05:09→11:04)
[2016-11-22] MEDS: Cefepime HCl 1,000 MG in D5% in Water (Mini-Bag+) 100 ML IVPB SCH (05:42)
[2016-11-22] MEDS: *HR* Morphine 2 MG/ML SYRINGE IVP PRN ×2 (05:47→11:59)
[2016-11-22] MEDS: *HR* Heparin 5,000 UNIT/ML VIAL SQ SCH (05:48)
[2016-11-22 06:30] LABS: Eosinophils % 0.4 %; Hematocrit 27.6 % (35.3-44.9); Hemoglobin 8.1 g/dL (11.5-15.4); Immature Granulocytes % 0.7 % (0-4); Lymphocytes # 0.6 K/mcL (0.6-4.6); Lymphocytes % 11.4 %; Mean Corpuscular HGB Conc 29.3 g/dL (31.6-35.5); Mean Corpuscular Hemoglobin 26.4 pg (28.0-33.3); Mean Corpuscular Volume 89.9 fL (83.0-100.0); Mean Platelet Volume 9.6 fL (9.4-12.4); Monocytes # 0.6 K/mcL (0.0-1.3); Monocytes % 11.2 %; Neutrophils # 4.2 K/mcL (1.6-8.9); Platelet Count 277 K/mcL (140-400); Red Blood Count 3.07 M/mcL (3.82-4.97); Red Cell Distribution Width 15.4 % (11.5-14.5); Segmented Neutrophils % 76.3 %
[2016-11-22 06:39] LABS: BUN/Creatinine Ratio 20 (6-26); Blood Urea Nitrogen 14 mg/dL (7-20); Calcium 8.3 mg/dL (8.6-10.8); Carbon Dioxide 30 mEq/L (19-29); Chloride 102 mEq/L (98-109); Glucose 97 mg/dL (70-99); Osmolality,Calculated 288 (280-300); Potassium 3.6 mEq/L (3.5-4.5); Sodium 139 mEq/L (136-145); eGFR For African Americans > 60 (> 60); eGFR For Non-African Americans > 60 (> 60)
[2016-11-22 07:06] VITALS: BP 128/88
--- NOTE | 2016-11-22 08:58 | Internal Med Progress Note ---
Date of Encounter: 11/22/16 Time of Encounter: 08:35 - Assessment and plan (1) Acute exacerbation of chronic obstructive pulmonary disease (COPD) Current Visit: No Status: Acute (2) Community acquired pneumonia Current Visit: Yes Status: Acute (3) Chronic respiratory failure with hypercapnia Current Visit: Yes Status: Chronic (4) Current smoker Current Visit: Yes Status: Acute (5) CAD (coronary artery disease) Current Visit: Yes Status: Chronic Qualifiers: Coronary Disease-Associated Artery/Lesion type: [place] artery [place] vs. transplanted heart: [place] heart Associated angina: without angina Qualified Code(s): I25.10 - Atherosclerotic heart disease of [place] coronary artery without angina pectoris (6) DVT prophylaxis Current Visit: Yes Status: Acute - Subjective Interval history: Pt seen/eval, she still has cough and wheezing, but improved from previous. No fever, chills, nvd. - Constitutional Vitals: Temp Pulse Resp BP Pulse Ox 98.1 F 84 15 128/88 100 11/22/16 07:00 11/22/16 07:00 11/22/16 08:05 11/22/16 07:00 11/22/16 08:05 General appearance: Present: cachectic, A&O X 3 Internal Medicine: Result - Labs CBC & Chem 7: 11/22/16 06:03 11/22/16 06:03 Labs: Short CBC 11/22/16 Range/Units 06:03 WBC 5.5 D (4.3-11.1) K/mcL Hgb 8.1 L (11.5-15.4) g/dL Hct 27.6 L (35.3-44.9) % Plt Count 277 (140-400) K/mcL Neutrophils # 4.2 (1.6-8.9) K/mcL BMP 11/22/16 06:03 Sodium 139 Potassium 3.6 Chloride 102 Carbon Dioxide 30 H BUN 14 Creatinine 0.70 Glucose 97 Calcium 8.3 L Consult Discharge Plan - Plan Referrals: Imtiaz Alicea [Primary Care Provider] -
[2016-11-22] MEDS: predniSONE 20 MG TABLET PO SCH (09:07)
[2016-11-22] MEDS: Aspirin 81 MG TAB.CHEW PO SCH (09:08)
[2016-11-22] MEDS: Renal Vitamin 1 MG CAPSULE PO SCH (09:08)
[2016-11-22] MEDS: *HR* Ticagrelor 90 MG TABLET PO SCH (09:08)
--- NOTE | 2016-11-22 11:33 | Discharge Summary ---
<Jak Fairchild - Last Filed: 11/22/16 11:28> Date of Encounter: 11/22/16 Time of Encounter: 11:00 - Discharge Diagnosis (1) Acute exacerbation of chronic obstructive pulmonary disease (COPD) Priority: Primary Status: Acute (2) Community acquired pneumonia Priority: Primary Status: Acute (3) Chronic respiratory failure with hypercapnia Priority: Secondary Status: Chronic (4) Current smoker Priority: Secondary Status: Chronic (5) CAD (coronary artery disease) Priority: Secondary Status: Chronic Qualifiers: Coronary Disease-Associated Artery/Lesion type: [place] artery [place] vs. transplanted heart: [place] heart Associated angina: without angina Qualified Code(s): I25.10 - Atherosclerotic heart disease of [place] coronary artery without angina pectoris (6) DVT prophylaxis Priority: Secondary Status: Acute - Discharge Medications Prescriptions: Alprazolam [Xanax 0.25 MG Tablet] 0.25 mg PO TID PRN #20 tablet PRN Reason: Anxiety Ferrous Sulfate 325 mg PO TIDWM #60 tablet Nicotine Patch [Nicoderm] 21 mg TD HS #30 patch.td24 PredniSONE 40 mg PO DAILY #6 tablet Home Medications: Ipratropium/Albuterol Sulfate [Combivent Respimat Inhal [place]] 2 puff IH Q6H 01/13 [History] Metoprolol [Lopressor] 25 mg PO BID 03/05/16 [History] Amlodipine [Norvasc] 5 mg PO DAILY #30 tablet 05/10/16 [Rx] Ticagrelor [Brilinta] 90 mg PO BID #30 tablet 05/10/16 [Rx] Albuterol Sulfate [Albuterol Inhaler] 2 puff IH Q4H PRN 09/22/16 [History] Aspirin 81 mg PO DAILY 09/22/16 [History] Potassium Chloride 10 meq PO DAILY 09/22/16 [History] Saline Nasal [place] [[place] Nasal [place]] 2 spray NS Q2H PRN #0 bottle 09/27/16 [Rx ] Levothyroxine [Synthroid] 50 mcg PO QAM 11/18/16 [History] Pravastatin Sodium [Pravachol] 40 mg PO HS 11/18/16 [History] Alprazolam [Xanax 0.25 MG Tablet] 0.25 mg PO TID PRN #20 tablet 11/22/16 [Rx] Ferrous Sulfate 325 mg PO TIDWM #60 tablet 11/22/16 [Rx] Nicotine Patch [Nicoderm] 21 mg TD HS #30 patch.td24 11/22/16 [Rx] PredniSONE 40 mg PO DAILY #6 tablet 11/22/16 [Rx] Allergies/Adverse Reactions: Allergies clopidogrel [From Plavix] Allergy (Verified 09/22/16 08:27) Itching codeine Allergy (Verified 11/18/16 20:44) Itching Date of admission: 11/18/16 23:32 Primary care physician: Imtiaz Alicea Consults: 11/19/16 09:55 Consult to Occupational Therapy [CONS] Routine Comment: Evaluate, develop and implement POC Consult to Physical Therapy [CONS] Routine Comment: Evaluate, develop and implement POC Consult to Supervisor Kennel [CONS] Routine Reason for SW Consult: COPD exacerbation, multiple readmissions, eval for resources, thanks! Discharging clinician: Lonny Trejo Anticipated date of discharge: 11/22/16 - Patient Status Disposition: Home, Self-Care Condition: Good Functional capacity at discharge: independent ambulation Overall status at discharge: patient is progressing back to baseline - Discharge Instructions Instructions: Alprazolam (By mouth), Prednisone (By mouth), Nicotine (Absorbed through the skin), Ascorbic Acid/Cyanocobalamin/Ferrous Fumarate (By mouth), How to Stop Smoking (DC) Follow Up With: Imtiaz Alicea [Primary Care Provider] - 12/07/16 2:20 pm - Diet and Activity Activity: increase activity as tolerated, wear oxygen at all times Diet: advance to your usual diet, low fat, low cholesterol, low salt diet Interval History: Patient would present to [place] with chief concern: dyspnea Comorbidities include: cancer (Right upper lobectomy due to lung cancer status post chemotherapy), COPD (Oxygen dependent using 3 L at home, chronic respiratory failure), coronary artery disease, GI bleed, hypertension, other ( Healthcare associated pneumonia, hyponatremia, CAD, hyperlipidemia, depression, anxiety, tobacco use, hypothyroidism) Hospital course: Initial impression COPD exacerbation, pneumonia Patient would undergo treatment with empiric antibiotics, steroid therapy. BC x 2 negative. Imaging studies disclosed: Chest X-Ray 11/18/16 19:55 IMPRESSION: Persistent bibasilar airspace disease compatible with pneumonia. Recommend follow-up to complete resolution. At time of discharge, patient was clinically improved, hemodynamically stable, progressing to baseline, and agreeable with plan of care. Patient was advised to seek immediate medical attention for any new or worsening symptoms including but not limited to fever, chills, chest pain, chest pressure, dyspnea, cough, abdominal pain, nausea, vomiting, diarrhea, bloody stool, urine and the patient voiced understanding. Patient will follow-up with primary care physician: Dr. Imtiaz Alicea Complete 3 more days of prednisone burst and empiric antibiotics. She has significant anxiety component as well, so xanax #20 refilled, OARRS unavailable to me at this time. She did not appear to be abusing her regimen. Counseled on smoking cessation, to resume NRT. Hospital course: Ms. Mckeon is a 66 year old female Time spent discussing smoking cessation with patient: more than 10 minutes - Time Spent with Patient Total time spent providing and/or coordinating discharge services: Greater than 30 minutes - Constitutional Vitals: Temp Pulse Resp BP Pulse Ox 98.1 F 84 15 128/88 100 11/22/16 07:00 11/22/16 07:00 11/22/16 08:05 11/22/16 07:00 11/22/16 08:05 General appearance: Present: cachectic, A&O X 3 - Head Head exam: Present: atraumatic, normocephalic - Eye Eye exam: Present: EOMI, sclera anicteric - ENT ENT exam: Present: mucous membranes moist - Neck Neck exam general surgery: Present: supple, trachea midline - Respiratory Respiratory exam: Present: rhonchi (scattered), wheezes (mild). Absent: accessory muscle use - Cardiovascular Cardiovascular exam: Present: +S1, +S2. Absent: JVD - GI/Abdominal GI/Abdominal exam: Present: soft, no peritoneal signs. Absent: tenderness - Extremities Exam Extremities exam: Present: warm, radial pulses palpable and symetrical. Absent : pedal edema <Maya,Lonny P - Last Filed: 11/22/16 18:27> Date of Encounter: 11/22/16 Date of admission: 11/18/16 23:32 Primary care physician: Imtiaz Alicea Consults: 11/19/16 09:55 Consult to Occupational Therapy [CONS] Routine Comment: Evaluate, develop and implement POC Consult to Physical Therapy [CONS] Routine Comment: Evaluate, develop and implement POC Consult to Supervisor Kennel [CONS] Routine Reason for SW Consult: COPD exacerbation, multiple readmissions, eval for resources, thanks! Hospital course: Ms. Mckeon is a 66 year old female - Time Spent with Patient Total time spent providing and/or coordinating discharge services: - Constitutional Vitals: Temp Pulse Resp BP Pulse Ox 98.1 F 84 15 128/88 100 11/22/16 07:00 11/22/16 07:00 11/22/16 11:04 11/22/16 07:00 11/22/16 11:04 - Attending Attestation I examined this patient and my medical decision-making was reviewed with the FITTER PLACER/PA/Advanced Practice Nurse/Resident Physician. I agree with the documented findings, disposition and treatment plan as described except to the extent set forth below.
[2016-11-22] MEDS ORDERED: Azithromycin 250 MG TABLET PO SCH (23:00)
== END 2016-11-22 15:35 | disposition home or self-care (01) | DRG 190 ==
LOC: EMEROO 19:32 → SUATTDRO 23:32 → 2NENU 23:32
PROVIDERS: ADMIT Internal Medicine; ATTEND Internal Medicine

== ENCOUNTER 2017-01-01 14:36 | Inpatient (IN) ==
[2017-01-01] MEDS ORDERED: 0.9 % Sodium Chloride 1,000 ML IVC ONE (14:48)
[2017-01-01] MEDS ORDERED: Ipratropium/Albuterol Neb 3 ML IH ONE (14:48)
[2017-01-01] MEDS ORDERED: *HR* LORazepam 2 MG/ML VIAL IVP ONE (14:52)
[2017-01-01] MEDS ORDERED: Nitroglycerin 0.4 MG TAB.SUBL SL PRN (14:52)
--- NOTE | 2017-01-01 14:52 | Emergency Department Note ---
Disposition Clinical Impression: Descending thoracic aortic aneurysm, COPD exacerbation, Tobacco abuse Chest pain Qualifiers: Chest pain type: unspecified Qualified Code(s): R07.9 - Chest pain, unspecified COPD (chronic obstructive pulmonary disease) Qualifiers: COPD type: unspecified COPD Qualified Code(s): J44.9 - Chronic obstructive pulmonary disease, unspecified Anemia Qualifiers: Anemia type: unspecified type Qualified Code(s): D64.9 - Anemia, unspecified Disposition: Admitted As Inpatient Condition: Fair General Adult HPI - General Chief complaint: ED Shortness of Breath/Dyspnea Stated complaint: INDIRA Time Seen by Provider: 01/01/17 14:38 Source: patient Mode of arrival: EMS Limitations: no limitations Nursing Notes Reviewed: Yes Vital Signs Reviewed: Yes - History of Present Illness HPI Narrative: 66 year old female with history of advanced COPD, oxygen dependent at present for evaluation of chest pain shortness of breath. 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 That they have been monitoring since 2009. Patient notes that she has been feeling short of breath for the past week. Patient short of breath at baseline. Patient also notes some retrosternal chest pain going to her back. Similar the patient had the past with an aortic tear. Patient also notes numbness in her jaw and in her left arm. Patient states that this pain feels similar to the pain she has had back then. Patient's worried "about her aorta". Patient is also worried about her heart. Patient also has a history of lung cancer that was treated with chemoradiation in the past. Patient denies any active lung cancer. Patient is typically on 4 L nasal cannula at home. Pain Scale: 7 - Related Data Home Medications Medication Instructions Recorded Confirmed Ipratropium/Albuterol Sulfate 2 puff IH Q6H 03/05/16 11/18/16 [Combivent Respimat Inhal [place]] Metoprolol [Lopressor] 25 mg PO BID 03/05/16 11/18/16 Albuterol Sulfate [Albuterol 2 puff IH Q4H PRN 09/22/16 11/18/16 Inhaler] Aspirin 81 mg PO DAILY 09/22/16 11/18/16 Potassium Chloride 10 meq PO DAILY 09/22/16 11/18/16 Levothyroxine [Synthroid] 50 mcg PO QAM 11/18/16 11/18/16 Pravastatin Sodium [Pravachol] 40 mg PO HS 11/18/16 11/18/16 Previous Rx's Medication Instructions Recorded Ticagrelor [Brilinta] 90 mg PO BID #30 tablet 05/10/16 amLODIPine [Norvasc] 5 mg PO DAILY #30 tablet 05/10/16 Saline Nasal [place] [[place] Nasal 2 spray NS Q2H PRN #0 bottle 09/27/16 [place]] ALPRAZolam [Xanax 0.25 MG Tablet] 0.25 mg PO TID PRN #20 tablet 11/22/16 Ferrous Sulfate 325 mg PO TIDWM #60 tablet 11/22/16 Nicotine Patch [Nicoderm] 21 mg TD HS #30 patch.[id number] 11/22/16 predniSONE [PredniSONE] 40 mg PO DAILY #6 tablet 11/22/16 Allergies Allergy/AdvReac Type Severity Reaction Status Date / Time clopidogrel [From Plavix] Allergy Itching Verified 01/01/17 14:48 codeine Allergy Itching Verified 01/01/17 14:48 All systems ED: reviewed and negative except as stated. Constitutional: Reports: as per HPI. Denies: fever Eyes: Reports: as per HPI ENT ED: Reports: as per HPI Cardiovascular: Reports: as per HPI, chest pain Respiratory: Reports: as per HPI, cough, dyspnea Gastrointestinal: Reports: as per HPI. Denies: nausea, vomiting Genitourinary: Reports: as per HPI Musculoskeletal: Reports: as per HPI Integumentary: Reports: as per HPI Neurological: Reports: as per HPI Psychiatric: Reports: as per HPI Endocrine: Reports: as per HPI Hematological/Lymphatic: Reports: as per HPI Allergic/Immunologic: Reports: as per HPI Past Medical History - Past Medical History Attestation: Yes The following information was validated with the patient. Medical history: Reports: aortic aneurysm, cancer, COPD, coronary artery disease , GI bleed, hypertension, other Surgical history: Reports: appendectomy, cancer surgery, cholecystectomy, SHERICE/ BSO, other Psychiatric history: Reports: no psych history PREVENTIVE MAINTENANCE COORDINATOR history: Reports: no PREVENTIVE MAINTENANCE COORDINATOR history - Social History Smoking Status: Current every day smoker Smokeless Tobacco Status: No Alcohol use: Reports: none Drug use: Reports: none Physical Exam - General Limitations: no limitations General appearance: alert, in distress - Head Head exam: atraumatic, normocephalic, normal inspection - Eye Eye exam: Present: normal appearance, EOMI, scleral icterus - ENT ENT exam: normal exam, normal oropharynx - Neck Neck exam: Present: normal inspection. Absent: trachea midline - Chest Chest inspection: Present: normal inspection, symmetric chest wall rise - Respiratory Respiratory exam: Present: respiratory distress, wheezes (Respiratory expiratory wheeze throughout), accessory muscle use, prolonged expiratory phase - Cardiovascular Cardiovascular exam: Present: regular rate, normal rhythm - Abdominal Exam Abdominal exam: Present: soft, Non-Tender - Extremities Exam Extremities exam: Present: normal inspection. Absent: pedal edema - Back Exam Back exam: Present: normal inspection - Neurological Exam Neurological exam: Present: alert, oriented X3, CN II-XII intact - Skin Skin exam: Present: warm, dry, intact, normal color Course Course Narrative: Patient seen and examined. Patient is in moderate distress. Patient is getting antianxiety, nitroglycerin, bedside chest x-ray shows no significant widening mediastinum. Patient will get CT imaging of the chest. Patient will also get cardiopulmonary evaluation with labs, EKG. Patient has had BiPAP in the past. Patient also is a full code. Patient would like intubated if she came to that. - Reevaluation(s) Reevaluation #1: Patient seen and examined. Patient's resting comfortably. Awaiting patient's labs. Chest pain resolved. Time: 15:50 Reevaluation #2: plan of care was discussed with her at bedside. Patient's resting comfortably. No acute distress. Time: 17:48 Vital Signs Temperature 98.9 F 01/01/17 14:39 Pulse Rate 101 01/01/17 14:39 Respiratory Rate 18 01/01/17 14:39 Blood Pressure 193/111 01/01/17 14:39 O2 Sat by Pulse Oximetry 99 01/01/17 14:39 Temperature 98.9 F 01/01/17 14:39 Pulse Rate 90 01/01/17 17:29 Respiratory Rate 16 01/01/17 18:34 Blood Pressure 111/83 01/01/17 18:34 O2 Sat by Pulse Oximetry 99 01/01/17 17:29 Oxygen Delivery Oxygen Delivery Nasal Cannula Medical Decision Making - [facility] Narrative Medical decision making narrative: 66 year old for a female patient for evaluation of chest pain short of breath. Patient states that the symptoms started over the past week. Patient did have some mild respiratory distress on initial presentation. Patient is tachycardic and tachypnea. Patient had pursed lip breathing. Patient was conversational dyspnea. Patient was given IV steroids as well as 1 DuoNeb in route. Patient was given subsequent nebs in the ER. Patient's EKG showed no acute changes. Patient did elicit a history of thoracic aortic aneurysm. Patient had a CT PE obtained which shows a stable saccular descending aneurysm. Patient states that she follows with her doctor mamie Carvajal. Patient does have risk factors for coronary artery disease. Patient will need further monitoring including trending troponins troponins, formal cardiac evaluation with likely stress test or echo. Patient also has a stable descending aortic aneurysm. Patient will also likely need increasing respiratory support and more frequent nebs than at home. Patient was given a single dose of levaquin do to potential COPD exacerbation component. Patient anemia is stable based on prior lab values. Patient will be admitted to the hospital service for further care. - Lab Data Lab results reviewed: Yes I reviewed the patient's lab results. Result diagrams: 01/01/17 15:20 01/01/17 15:20 Lab Results 01/01/17 01/01/17 01/01/17 Range/Units 15:20 15:20 15:20 WBC 5.5 (4.3-11.1) K/mcL RBC 3.37 L (3.82-4.97) M/mcL Hgb 8.9 L (11.5-15.4) g/dL Hct 30.2 L (35.3-44.9) % MCV 89.6 (83.0-100.0) fL MCH 26.4 L (28.0-33.3) pg MCHC 29.5 L (31.6-35.5) g/dL RDW 16.6 H (11.5-14.5) % Plt Count 222 (140-400) K/mcL MPV 9.6 (9.4-12.4) fL Immature Gran % 0.4 (0-4) % Seg Neutrophils % 71.4 % Lymphocytes % 15.8 % Monocytes % 7.9 % Eosinophils % 3.8 % Basophils % 0.7 % Neutrophils # 3.9 (1.6-8.9) K/mcL Lymphocytes # 0.9 (0.6-4.6) K/mcL Monocytes # 0.4 (0.0-1.3) K/mcL Eosinophils # 0.2 (0.0-0.6) K/mcL Basophils # 0.0 (0.0-0.2) K/mcL Platelet Estimate Normal (Normal) Hypochromasia Present A (Not Present) Sodium 140 (136-145) mEq/L Potassium 3.7 (3.5-4.5) mEq/L Chloride 96 L (98-109) mEq/L Carbon Dioxide 37 H (19-29) mEq/L BUN 12 (7-20) mg/dL Creatinine 0.83 (0.57-1.11) mg/dL Est GFR ( Amer) > 60 (> 60) Est GFR (Non-Af Amer) > 60 (> 60) BUN/Creatinine Ratio 14 (6-26) Glucose 110 H (70-99) mg/dL Calculated Osmolality 290 (280-300) Lactic Acid 0.7 (0.5-2.2) mmol/L Calcium 9.3 (8.6-10.8) mg/dL Troponin I (0-0.03) ng/mL B-Natriuretic Peptide (0-100) pg/mL 01/01/17 01/01/17 Range/Units 15:20 15:20 WBC (4.3-11.1) K/mcL RBC (3.82-4.97) M/mcL Hgb (11.5-15.4) g/dL Hct (35.3-44.9) % MCV (83.0-100.0) fL MCH (28.0-33.3) pg MCHC (31.6-35.5) g/dL RDW (11.5-14.5) % Plt Count (140-400) K/mcL MPV (9.4-12.4) fL Immature Gran % (0-4) % Seg Neutrophils % % Lymphocytes % % Monocytes % % Eosinophils % % Basophils % % Neutrophils # (1.6-8.9) K/mcL Lymphocytes # (0.6-4.6) K/mcL Monocytes # (0.0-1.3) K/mcL Eosinophils # (0.0-0.6) K/mcL Basophils # (0.0-0.2) K/mcL Platelet Estimate (Normal) Hypochromasia (Not Present) Sodium (136-145) mEq/L Potassium (3.5-4.5) mEq/L Chloride (98-109) mEq/L Carbon Dioxide (19-29) mEq/L BUN (7-20) mg/dL Creatinine (0.57-1.11) mg/dL Est GFR ( Amer) (> 60) Est GFR (Non-Af Amer) (> 60) BUN/Creatinine Ratio (6-26) Glucose (70-99) mg/dL Calculated Osmolality (280-300) Lactic Acid (0.5-2.2) mmol/L Calcium (8.6-10.8) mg/dL Troponin I 0.00 (0-0.03) ng/mL B-Natriuretic Peptide 15 (0-100) pg/mL - Radiology Data Radiology results reviewed: Yes I reviewed the patient's radiology results. Chest X-Ray 01/01/17 14:48 IMPRESSION: No evidence for acute cardiopulmonary process. COPD. D/ / 01/01/2017 15:07:08 [facility]: Bay Kelsey MD Chest CTA 01/01/17 14:51 IMPRESSION: 1. No evidence of pulmonary embolism. 2. Stable size of 4.2 cm saccular aneurysm in the proximal descending thoracic aorta. 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 3. Severe emphysema. 4. In comparison to 09/22/2016, airspace opacities in the right lower lobe are improved. 5. Stable trace pericardial effusion. D/ / 01/01/2017 17:17:27 Joce Jackson MD / [facility] Interpreting Provider: Joce Jackson MD - EKG Data EKG #1 EKG attestation: Yes I reviewed and interpreted this EKG. EKG shows normal: sinus rhythm Rate: tachycardia Rhythm: NSR Voltage: c/w atrial hypertrophy P waves: EDDIE Q waves: v1, v2 T wave inversions noted in: v1 Interpretation: unchanged when compared to prior tracing (date), nonspecific ST- T wave changes S.Sandy.Lulu. - S.Uriel Situation: Demographics Background: Presenting Complaint Assessment: Vital Signs, Course and respsone to treatment, Patient/Family Expectation Recommendation: Barrier(s) to disposition, Recommendation based on pending studies, treatments, or consults Fito Report Given to: Dr. Manish Payton Repor Time: 18:05 Attestation Statement - Attestation Attestation: I examined this patient and my medical decision-making was reviewed with the TRACTOR SWEEPER OPERATOR/PA/Advanced Practice Nurse/Resident Physician. I agree with the documented findings, disposition and treatment plan as described except to the extent set forth below. 66-year-old female presents ED because of difficulty breathing and chest pain. She has had pain on and off for the past day is worsening. Now radiating into her mid back interscapular region. Increasing dyspnea with nonproductive cough. No exertional provocation of symptoms. She has a known descending aortic aneurysm which is being monitored by her dry cure worker at another facility. She denies fevers or chills. No recent trauma. No abdominal pain or vomiting or diarrhea. No nausea. No diaphoresis. She is moderate smoker continues smoking. She was smoking immediately before coming to the hospital. Elderly female who appears much older than her stated age. Oropharynx is clear. Membranes dry. Neck is supple. Trachea midline. No JVD. Chest with diffuse biphasic wheezes in all lung weber. Chest wall is tender both anterior and posteriorly. No focal consolidation. Cardiac exam regular without murmurs. Abdomen soft, nondistended nontender. Extremities warm and dry. She had aerosols per EMS prior to arrived to the ED and had several aerosols in the ED with minimal improvement. She continued with moderate dyspnea and diffuse wheezing. She received IV Solu-Medrol per EMS. Imaging of her chest reveals the descending aortic aneurysm which is unchanged from prior studies. Continue with anterior chest pain but no acute EKG changes. She will be admitted for further evaluation of her chest pain and treatment for this COPD exacerbation.
[2017-01-01 15:38] LABS: Basophils % 0.7 %; Immature Granulocytes % 0.4 % (0-4); Mean Platelet Volume 9.6 fL (9.4-12.4)
[2017-01-01 15:40] LABS: Eosinophils # 0.2 K/mcL (0.0-0.6); Eosinophils % 3.8 %; Hematocrit 30.2 % (35.3-44.9); Hemoglobin 8.9 g/dL (11.5-15.4); Lymphocytes # 0.9 K/mcL (0.6-4.6); Lymphocytes % 15.8 %; Mean Corpuscular HGB Conc 29.5 g/dL (31.6-35.5); Mean Corpuscular Hemoglobin 26.4 pg (28.0-33.3); Mean Corpuscular Volume 89.6 fL (83.0-100.0); Monocytes # 0.4 K/mcL (0.0-1.3); Monocytes % 7.9 %; Neutrophils # 3.9 K/mcL (1.6-8.9); Platelet Count 222 K/mcL (140-400); Red Blood Count 3.37 M/mcL (3.82-4.97); Red Cell Distribution Width 16.6 % (11.5-14.5); Segmented Neutrophils % 71.4 %
[2017-01-01 15:51] LABS: BUN/Creatinine Ratio 14 (6-26); Blood Urea Nitrogen 12 mg/dL (7-20); Calcium 9.3 mg/dL (8.6-10.8); Carbon Dioxide 37 mEq/L (19-29); Chloride 96 mEq/L (98-109); Glucose 110 mg/dL (70-99); Osmolality,Calculated 290 (280-300); Potassium 3.7 mEq/L (3.5-4.5); Sodium 140 mEq/L (136-145); eGFR For African Americans > 60 (> 60); eGFR For Non-African Americans > 60 (> 60)
[2017-01-01 16:16] LABS: Hypochromasia Present (Not Present); Platelet Estimate Normal (Normal)
[2017-01-01] MEDS ORDERED: levoFLOXacin 500 MG TABLET PO ONE (17:47)
[2017-01-01] MEDS ORDERED: Aspirin 81 MG TAB.CHEW PO ONE (18:02)
[2017-01-01] MEDS ORDERED: Albuterol 2.5 MG/3 ML NEBULIZER IH PRN (19:56)
[2017-01-01] MEDS ORDERED: Naloxone 0.4 MG/ML INJ IVP PRN (20:07)
--- NOTE | 2017-01-01 20:18 | Internal Med History&Physical ---
Date of Encounter: 01/01/17 Time of Encounter: 20:16 Assessment and Plan (1) Acute exacerbation of chronic obstructive pulmonary disease (COPD) Current visit: No Status: Acute Patient with worsening shortness of breath over the last week, and chest pain. Chest x-ray showed COPD, no evidence of acute cardiopulmonary disease, CT of the chest was negative for PE. Patient's respiratory distress improved after steroids and DuoNeb treatments. On exam, patient somnolent, difficult to arouse. Stat ABG ordered BiPAP overnight Solu-Medrol 60 mg IV push every 8 hours DuoNeb treatments 4 times a day Albuterol nebulizer every 2 when necessary Levaquin daily (2) Acute and chronic respiratory failure Current visit: No Status: Acute Patient with severe COPD, requiring 4L NC at home. She presented with respiratory distress, shortness of breath and chest pain. Her oxygen saturations were stable on 4L. However, on my assessment she was somnolent, difficult to arouse and would not stay awake. Concern for hypercapnea. Stat ABG showed respiratory acidosis with pH of 7.28 and hypercapnea with pCO2 of 82. Bipap overnight Coninuous pulse oximetry. Qualifiers: Respiratory failure complication: hypercapnia Qualified Code(s): J96.22 - Acute and chronic respiratory failure with hypercapnia (3) Chest pain Current visit: Yes Status: Acute Per ED report, patient complained of chest pain radiating to her back and was worried about her aorta. EKG showed no ischemic changes, troponin was negative at 0.00. CTA of the chest showed no PE, and the aneurysm was stable. Chest pain resolved with resolution of her respiratory distress, and is likely secondary to COPD exacerbation, but will rule out ACS. 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 Qualifiers: Hypertension type: essential hypertension Qualified Code(s): I10 - Essential (primary) hypertension (5) Aortic aneurysm Current visit: Yes Status: Acute Patient with history of aortic tear, and per ED report she was concerned about her aorta due to her chest pain. CTA of the chest showed stable size of 4.2cm saccular aneurysm in the proximal descending thoracic aorta. 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 Qualifiers: Aortic location: unspecified Presence of rupture: without rupture Qualified Code(s): I71.9 - Aortic aneurysm of unspecified site, without rupture (6) Tobacco abuse Current visit: No Status: Chronic Patient continues to smoke despite history of lung cancer and severe COPD. Smoking cessation education ordered. nicotine patch. (7) DVT prophylaxis Current visit: No Status: Acute Internal Medicine - H&P: HPI Chief complaint: chest pain, shortness of breath Admitted From: Emergency Dept Plans for Post Hospital Care: Home History of present illness: Ms. Mckeon is a 66 year old female with advanced COPD, lung cancer status post chemotherapy and radiation, aortic aneurysm, coronary artery disease, and GI bleed presented to the emergency department today with complaints of chest pain and shortness of breath. On my exam, patient was somnolent and I was unable to get a review of systems. In reviewing the emergency department notes, patient stated she had increased shortness of breath for the last week, had chest pain radiating to her back, and numbness in her jaw and left arm, which she reported was similar to the pain she felt when she had her aortic tear. Evaluation in the emergency department revealed anemia which was consistent with her baseline , troponin was negative at 0.00, chest x-ray showed COPD with no evidence of acute cardiopulmonary disease, CT of a of the chest showed no PE, stable size of the aneurysm in the descending aorta. EKG with no acute ischemic changes. She was given IV steroids and DuoNeb treatments, aspirin, Ativan, and Levaquin. Her respiratory distress improved and chest pain resolved. On exam, patient was sleeping, would arouse briefly, but would fall back asleep immediately, very somnolent. Not able to obtain review of systems. Stat ABG and bipap ordered. Lungs had bilateral diffuse rhonchi and wheezes. Heart had regular rate and rhythm. Past Med Surg Social Fam HX - Past Medical History Medical history: aortic aneurysm, cancer, COPD, coronary artery disease, GI bleed, hypertension, other Psychiatric history: no psych history - Past Surgical History Surgical History: appendectomy, cancer surgery, cholecystectomy, SHERICE/BSO, other - Social History Smoking Status: Current every day smoker Smokeless Tobacco Status: No Alcohol use: none Drug use: none - Family History Mother Adopted: No Living Status: Hx Family Cardiac Disorders: No Hx Family Respiratory Disorders: Yes (COPD) Hx Family Cancer: No Hx Family GI Disorders: No Hx Family Endocrine Disorder: No Hx Family Neuromuscular Disorders: No Hx Family Neurologic Disorders: No Hx Family HEENT Disorders: No Hx Family Autoimmune Disorders: No Father Adopted: No Living Status: Hx Family Cardiac Disorders: No Hx Family Respiratory Disorders: No Hx Family Cancer: No Hx Family GI Disorders: No Hx Family Endocrine Disorder: No Hx Family Neuromuscular Disorders: No Hx Family Neurologic Disorders: No Hx Family HEENT Disorders: No Hx Family Autoimmune Disorders: No Sister Adopted: No Living Status: Still Living Hx Family Cardiac Disorders: No Hx Family Respiratory Disorders: No Hx Family Cancer: No Hx Family GI Disorders: No Hx Family Endocrine Disorder: No Hx Family Neuromuscular Disorders: No Hx Family Neurologic Disorders: Yes (MS) Hx Family HEENT Disorders: No Hx Family Autoimmune Disorders: No Brother Adopted: No Living Status: Still Living Hx Family Cardiac Disorders: No Hx Family Respiratory Disorders: No Hx Family Cancer: No Hx Family GI Disorders: No Hx Family Endocrine Disorder: No Hx Family Neuromuscular Disorders: No Hx Family Neurologic Disorders: No Hx Family HEENT Disorders: No Hx Family Autoimmune Disorders: No Internal Medicine - H&P: Meds Ipratropium/Albuterol Sulfate [Combivent Respimat Inhal [place]] 2 puff IH Q6H 01/13 [History] Metoprolol [Lopressor] 25 mg PO BID 03/05/16 [History] Ticagrelor [Brilinta] 90 mg PO BID #30 tablet 05/10/16 [Rx] amLODIPine [Norvasc] 5 mg PO DAILY #30 tablet 05/10/16 [Rx] Albuterol Sulfate [Albuterol Inhaler] 2 puff IH Q4H PRN 09/22/16 [History] Aspirin 81 mg PO DAILY 09/22/16 [History] Potassium Chloride 10 meq PO DAILY 09/22/16 [History] Saline Nasal [place] [[place] Nasal [place]] 2 spray NS Q2H PRN #0 bottle 09/27/16 [Rx ] Levothyroxine [Synthroid] 50 mcg PO QAM 11/18/16 [History] Pravastatin Sodium [Pravachol] 40 mg PO HS 11/18/16 [History] ALPRAZolam [Xanax 0.25 MG Tablet] 0.25 mg PO TID PRN #20 tablet 11/22/16 [Rx] Ferrous Sulfate 325 mg PO TIDWM #60 tablet 11/22/16 [Rx] Nicotine Patch [Nicoderm] 21 mg TD HS #30 patch.td24 11/22/16 [Rx] predniSONE [PredniSONE] 40 mg PO DAILY #6 tablet 11/22/16 [Rx] Allergies clopidogrel [From Plavix] Allergy (Verified 01/01/17 14:48) Itching codeine Allergy (Verified 01/01/17 14:48) Itching ROS unobtainable: due to mental status All Systems PM: A 10-system review of systems was performed and is negative for pertinent findings except as documented above in the HPI. - Constitutional Vitals: Temp Pulse Resp BP Pulse Ox 97.7 F 96 20 167/93 95 01/01/17 19:13 01/01/17 19:13 01/01/17 19:13 01/01/17 19:13 01/01/17 19:13 Exam: oriented, but somnolent, drowsy. - Head Head exam: Present: atraumatic, normocephalic - Eye Eye exam: Present: PERRL, conjuntiva pink, sclera anicteric Pupils: Present: PERRL - Neck Neck exam general surgery: Present: supple, trachea midline. Absent: lymphadenopathy - Respiratory Respiratory exam: Present: rhonchi, wheezes. Absent: accessory muscle use, rales - Cardiovascular Cardiovascular exam: Present: RRR, +S1, +S2. Absent: diastolic murmur, gallop, rubs, systolic murmur - GI/Abdominal GI/Abdominal exam: Present: normal bowel sounds, soft, no peritoneal signs. Absent: distended, tenderness - Extremities Exam Extremities exam: Present: warm, radial pulses palpable and symetrical. Absent : calf tenderness, cyanotic, pedal edema - Neurological Exam Neurological exam: Present: CN II-XII intact, oriented X3, no focal deficits. Absent: facial droop, speech deficit - Skin Skin exam: Present: dry, intact Internal Med - H&P Results - Labs CBC & Chem 7: 01/01/17 15:20 01/01/17 15:20 Labs: All Lab Results (24 Hours) 01/01/17 01/01/17 01/01/17 Range/Units 15:20 15:20 15:20 WBC 5.5 (4.3-11.1) K/mcL RBC 3.37 L (3.82-4.97) M/mcL Hgb 8.9 L (11.5-15.4) g/dL Hct 30.2 L (35.3-44.9) % MCV 89.6 (83.0-100.0) fL MCH 26.4 L (28.0-33.3) pg MCHC 29.5 L (31.6-35.5) g/dL RDW 16.6 H (11.5-14.5) % Plt Count 222 (140-400) K/mcL MPV 9.6 (9.4-12.4) fL Immature Gran % 0.4 (0-4) % Seg Neutrophils % 71.4 % Lymphocytes % 15.8 % Monocytes % 7.9 % Eosinophils % 3.8 % Basophils % 0.7 % Neutrophils # 3.9 (1.6-8.9) K/mcL Lymphocytes # 0.9 (0.6-4.6) K/mcL Monocytes # 0.4 (0.0-1.3) K/mcL Eosinophils # 0.2 (0.0-0.6) K/mcL Basophils # 0.0 (0.0-0.2) K/mcL Platelet Estimate Normal (Normal) Hypochromasia Present A (Not Present) Sodium 140 (136-145) mEq/L Potassium 3.7 (3.5-4.5) mEq/L Chloride 96 L (98-109) mEq/L Carbon Dioxide 37 H (19-29) mEq/L BUN 12 (7-20) mg/dL Creatinine 0.83 (0.57-1.11) mg/dL Est GFR ( Amer) > 60 (> 60) Est GFR (Non-Af Amer) > 60 (> 60) BUN/Creatinine Ratio 14 (6-26) Glucose 110 H (70-99) mg/dL Calculated Osmolality 290 (280-300) Lactic Acid 0.7 (0.5-2.2) mmol/L Calcium 9.3 (8.6-10.8) mg/dL Troponin I (0-0.03) ng/mL B-Natriuretic Peptide (0-100) pg/mL 01/01/17 01/01/17 Range/Units 15:20 15:20 WBC (4.3-11.1) K/mcL RBC (3.82-4.97) M/mcL Hgb (11.5-15.4) g/dL Hct (35.3-44.9) % MCV (83.0-100.0) fL MCH (28.0-33.3) pg MCHC (31.6-35.5) g/dL RDW (11.5-14.5) % Plt Count (140-400) K/mcL MPV (9.4-12.4) fL Immature Gran % (0-4) % Seg Neutrophils % % Lymphocytes % % Monocytes % % Eosinophils % % Basophils % % Neutrophils # (1.6-8.9) K/mcL Lymphocytes # (0.6-4.6) K/mcL Monocytes # (0.0-1.3) K/mcL Eosinophils # (0.0-0.6) K/mcL Basophils # (0.0-0.2) K/mcL Platelet Estimate (Normal) Hypochromasia (Not Present) Sodium (136-145) mEq/L Potassium (3.5-4.5) mEq/L Chloride (98-109) mEq/L Carbon Dioxide (19-29) mEq/L BUN (7-20) mg/dL Creatinine (0.57-1.11) mg/dL Est GFR ( Amer) (> 60) Est GFR (Non-Af Amer) (> 60) BUN/Creatinine Ratio (6-26) Glucose (70-99) mg/dL Calculated Osmolality (280-300) Lactic Acid (0.5-2.2) mmol/L Calcium (8.6-10.8) mg/dL Troponin I 0.00 (0-0.03) ng/mL B-Natriuretic Peptide 15 (0-100) pg/mL - Diagnostic Studies CT scan - chest Additional comments: Chest CTA 01/01/17 14:51 IMPRESSION: 1. No evidence of pulmonary embolism. 2. Stable size of 4.2 cm saccular aneurysm in the proximal descending thoracic aorta. 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 3. Severe emphysema. 4. In comparison to 09/22/2016, airspace opacities in the right lower lobe are improved. 5. Stable trace pericardial effusion. D/ / 01/01/2017 17:17:27 Joce Jackson MD / [facility] Interpreting Provider: Joce Jackson MD Chest x-ray Additional comments: Chest X-Ray 01/01/17 14:48 IMPRESSION: No evidence for acute cardiopulmonary process. COPD. D/ / 01/01/2017 15:07:08 Bya Kelsey MD / [facility] Interpreting Provider: Bay Kelsey MD
[2017-01-01] MEDS: Ipratropium/Albuterol Neb 3 ML IH SCH ×2 (21:06)
[2017-01-01] MEDS: Budesonide/Formoterol 160/4.5 MDI IH SCH (21:06)
[2017-01-01 21:08] LABS: ABG Base Excess 9.6 mEq/L (-2.0 to 3.0); ABG HCO3 38.5 mEQ/L (21-27); ABG Oxygen Saturation 98 % (95-98); ABG PH 7.28 pH Units (7.32-7.45); ABG PO2 125 mmHg (85-104)
[2017-01-01 21:09] LABS: ABG PCO2 82 mmHg (35-45); Blood Gas FiO2 36 %
[2017-01-01] MEDS: Nicotine 21 MG PATCH.TD24 TD SCH (21:53)
[2017-01-01] MEDS: methylPREDNISolone 125 MG/2 ML VIAL IVP SCH (23:10)
[2017-01-01 23:18] LABS: ABG HCO3 38.4 mEQ/L (21-27); ABG Oxygen Saturation 95 % (95-98); ABG PCO2 68 mmHg (35-45); ABG PH 7.36 pH Units (7.32-7.45); ABG PO2 80 mmHg (85-104); ABG TCO2 40.5 mEq/L (20-26); Blood Gas FiO2 32 %
[2017-01-02 03:41] LABS: Basophils % 0.1 %; Hemoglobin 8.8 g/dL (11.5-15.4); Immature Granulocytes % 0.8 % (0-4); Lymphocytes % 4.3 %
[2017-01-02 03:43] LABS: Hematocrit 30.5 % (35.3-44.9); Lymphocytes # 0.3 K/mcL (0.6-4.6); Mean Corpuscular HGB Conc 28.9 g/dL (31.6-35.5); Mean Corpuscular Hemoglobin 25.7 pg (28.0-33.3); Mean Corpuscular Volume 89.2 fL (83.0-100.0); Mean Platelet Volume 9.7 fL (9.4-12.4); Monocytes # 0.1 K/mcL (0.0-1.3); Neutrophils # 6.8 K/mcL (1.6-8.9); Platelet Count 233 K/mcL (140-400); Red Blood Count 3.42 M/mcL (3.82-4.97); Red Cell Distribution Width 16.5 % (11.5-14.5); Segmented Neutrophils % 93.8 %
[2017-01-02 03:54] LABS: BUN/Creatinine Ratio 19 (6-26); Blood Urea Nitrogen 14 mg/dL (7-20); Calcium 8.9 mg/dL (8.6-10.8); Carbon Dioxide 36 mEq/L (19-29); Chloride 100 mEq/L (98-109); Glucose 137 mg/dL (70-99); Magnesium 1.9 mg/dL (1.6-2.6); Osmolality,Calculated 293 (280-300); Potassium 4.1 mEq/L (3.5-4.5); Sodium 140 mEq/L (136-145); eGFR For African Americans > 60 (> 60); eGFR For Non-African Americans > 60 (> 60)
[2017-01-02] MEDS: Ipratropium/Albuterol Neb 3 ML IH SCH ×4 (04:00→22:47)
[2017-01-02 04:28] LABS: Hypochromasia Present (Not Present); Microcytosis Present (Not Present); Ovalocytes 1+ (Not Present)
[2017-01-02 04:31] LABS: Platelet Estimate Normal (Normal)
[2017-01-02] MEDS: methylPREDNISolone 125 MG/2 ML VIAL IVP SCH ×2 (07:37→15:49)
[2017-01-02] MEDS: Levofloxacin 500 MG/100 ML 500 MG/100 ML BAG IVPB SCH (07:37)
[2017-01-02] MEDS: Nicotine 21 MG PATCH.TD24 TD SCH (07:46)
[2017-01-02 07:50] LABS: Bilirubin,Urine Negative (Negative); Blood,Urine Negative (Negative); Clarity,Urine Clear (Clear); Color,Urine Yellow (Yellow); Glucose,Urine (UA) Normal (Normal); Ketones,Urine Negative (Negative); Leukocyte Esterase,Urine Negative (Negative); Nitrite,Urine Negative (Negative); PH,Urine 6.5 pH Units (5.0-8.0); Protein,Urine Trace mg/dL (Neg-Trace); Specific Gravity,Urine > 1.030 (1.010-1.025); Urobilinogen,Urine Normal (Normal)
[2017-01-02 07:53] LABS: Bacteria,Urine None Seen per hpf (None-Few); Hyaline Casts,Urine None Seen per lpf (None-Few); Squamous Epithelial Cell,Urine Many per lpf (None-Few)
[2017-01-02] MEDS ORDERED: *HR* LORazepam 2 MG/ML VIAL IVP PRN (08:42)
--- NOTE | 2017-01-02 09:17 | Internal Med Progress Note ---
<OvidioMarco Christiana - Last Filed: 01/02/17 13:32> Date of Encounter: 01/02/17 Time of Encounter: 09:15 - Assessment and plan (1) Acute exacerbation of chronic obstructive pulmonary disease (COPD) Current Visit: No Status: Acute Assessment and plan: Improving. Hypercapnia improved with BiPAP. COntinue scheduled neubulizers, IV steroids, abx. Continue BiPAP therapry as tolerated (2) Acute and chronic respiratory failure Current Visit: No Status: Acute Assessment and plan: Secondary to COPD exacerbation as discussed above. Continue BiPAP support Qualifiers: Respiratory failure complication: hypercapnia Qualified Code(s): J96.22 - Acute and chronic respiratory failure with hypercapnia (3) Anxiety Current Visit: No Status: Chronic Assessment and plan: hx of anxiety disorder, exacerbated by BiPAP. Will give ativan 0.5mg TID prn to help BiPAP compliance (4) DVT prophylaxis Current Visit: No Status: Acute Assessment and plan: EPCDs - Subjective Interval history: patient seen and examined at bedside. Patient continues to complain of shortness of breath although she feels it is slightly improved from last night. BiPAP help. - Constitutional Vitals: Temp Pulse Resp BP Pulse Ox 98.7 F 76 16 114/75 95 01/02/17 07:19 01/02/17 07:19 01/02/17 07:19 01/02/17 07:19 01/02/17 07:30 General appearance: Present: A&O X 3 - Respiratory Respiratory exam: Present: respiratory distress (mild), wheezes (throughout), tachypnea. Absent: accessory muscle use, rales, rhonchi - Cardiovascular Cardiovascular exam: Present: RRR. Absent: gallop, rubs, systolic murmur - GI/Abdominal GI/Abdominal exam: Present: normal bowel sounds, soft. Absent: distended, tenderness - Neurological Exam Neurological exam: Present: alert, CN II-XII intact, oriented X3, no focal deficits Internal Medicine: Result - Labs CBC & Chem 7: 01/02/17 03:30 01/02/17 03:30 Labs: Short CBC 01/02/17 Range/Units 03:30 WBC 7.2 (4.3-11.1) K/mcL Hgb 8.8 L (11.5-15.4) g/dL Hct 30.5 L (35.3-44.9) % Plt Count 233 (140-400) K/mcL Neutrophils # 6.8 (1.6-8.9) K/mcL BMP 01/02/17 03:30 Sodium 140 Potassium 4.1 Chloride 100 Carbon Dioxide 36 H BUN 14 Creatinine 0.74 Glucose 137 H Calcium 8.9 Cardiac Enzymes 01/01/17 01/02/17 Range/Units 21:53 03:30 Troponin I 0.01 0.01 (0-0.03) ng/mL Urine 01/02/17 Range/Units 07:10 Urine Color Yellow (Yellow) Urine Clarity Clear (Clear) Urine pH 6.5 (5.0-8.0) pH Units Ur Specific [place] > 1.030 H (1.010-1.025) Urine Protein Trace (Neg-Trace) mg/dL Urine Glucose (UA) Normal (Normal) mg/dL - ABG Interpretation ABG results: ABG ABG pH 7.36 pH Units (7.32-7.45) 01/01/17 23:02 ABG pCO2 68 mmHg (35-45) H 01/01/17 23:02 ABG pO2 80 mmHg (85-104) L 01/01/17 23:02 ABG O2 Saturation 95 % (95-98) 01/01/17 23:02 Consult Discharge Plan - Plan Referrals: NO,PCP [Primary Care Provider] - <Lonny Trejo P - Last Filed: 01/02/17 17:38> Date of Encounter: 01/02/17 - Constitutional Vitals: Temp Pulse Resp BP Pulse Ox 98.3 F 103 17 128/87 95 01/02/17 16:45 01/02/17 16:45 01/02/17 16:45 01/02/17 10:52 01/02/17 16:45 Internal Medicine: Result - Labs CBC & Chem 7: 01/02/17 03:30 01/02/17 03:30 Labs: Short CBC 01/02/17 Range/Units 03:30 WBC 7.2 (4.3-11.1) K/mcL Hgb 8.8 L (11.5-15.4) g/dL Hct 30.5 L (35.3-44.9) % Plt Count 233 (140-400) K/mcL Neutrophils # 6.8 (1.6-8.9) K/mcL BMP 01/02/17 03:30 Sodium 140 Potassium 4.1 Chloride 100 Carbon Dioxide 36 H BUN 14 Creatinine 0.74 Glucose 137 H Calcium 8.9 Cardiac Enzymes 01/01/17 01/02/17 Range/Units 21:53 03:30 Troponin I 0.01 0.01 (0-0.03) ng/mL Urine 01/02/17 Range/Units 07:10 Urine Color Yellow (Yellow) Urine Clarity Clear (Clear) Urine pH 6.5 (5.0-8.0) pH Units Ur Specific [place] > 1.030 H (1.010-1.025) Urine Protein Trace (Neg-Trace) mg/dL Urine Glucose (UA) Normal (Normal) mg/dL - ABG Interpretation ABG results: ABG ABG pH 7.36 pH Units (7.32-7.45) 01/01/17 23:02 ABG pCO2 68 mmHg (35-45) H 01/01/17 23:02 ABG pO2 80 mmHg (85-104) L 01/01/17 23:02 ABG O2 Saturation 95 % (95-98) 01/01/17 23:02 - Attending Attestation I examined this patient and my medical decision-making was reviewed with the [employer] PAVER OPERATOR/PA/Advanced Practice Nurse/Resident Physician. I agree with the documented findings, disposition and treatment plan as described except to the extent set forth below.
[2017-01-02] MEDS: Budesonide/Formoterol 160/4.5 MDI IH SCH ×2 (10:56→20:50)
[2017-01-02] MEDS: Acetaminophen 325 MG TABLET PO PRN (15:48)
[2017-01-02] MEDS: ALPRAZolam 0.25 MG TABLET PO PRN ×2 (15:49→20:38)
--- NOTE | 2017-01-02 16:32 | Electrocardiograph Report ---
[place] [id number] Test Date: 2017-01-01 Pat Name: Yessy Mckeon Department: 102 Room: 3B Gender: F Dramatic Director: Shilpi : 1950 Requested By: Omero Hurd Order Number: [id number] Reading MD: Melodie Petersen Measurements Intervals [place] Rate: 101 P: 80 MI: 153 QRS: 124 QRSD: 98 T: 37 QT: 371 QTc: 429 Interpretive Statements SINUS TACHYCARDIA POSSIBLE LEFT ATRIAL ENLARGEMENT ARTIFACT Electronically Signed On 01-02-2017 16:31:06 EDT by Melodie Petersen
[2017-01-02] MEDS: Ketorolac 30 MG/ML VIAL IVP PRN (20:38)
[2017-01-03] MEDS: methylPREDNISolone 125 MG/2 ML VIAL IVP SCH ×3 (00:06→16:32)
[2017-01-03] MEDS: Ipratropium/Albuterol Neb 3 ML IH SCH ×4 (04:09→22:43)
[2017-01-03] MEDS: Ketorolac 30 MG/ML VIAL IVP PRN ×3 (04:21→21:45)
[2017-01-03] MEDS: ALPRAZolam 0.25 MG TABLET PO PRN ×4 (04:37→22:32)
[2017-01-03 04:45] LABS: Basophils % 0.1 %; Hematocrit 29.7 % (35.3-44.9); Hemoglobin 8.9 g/dL (11.5-15.4); Immature Granulocytes % 1.2 % (0-4); Lymphocytes # 0.3 K/mcL (0.6-4.6); Lymphocytes % 3.3 %; Mean Corpuscular Hemoglobin 25.8 pg (28.0-33.3); Mean Corpuscular Volume 86.1 fL (83.0-100.0); Mean Platelet Volume 9.6 fL (9.4-12.4); Monocytes # 0.2 K/mcL (0.0-1.3); Monocytes % 2.1 %; Neutrophils # 9.8 K/mcL (1.6-8.9); Platelet Count 254 K/mcL (140-400); Red Blood Count 3.45 M/mcL (3.82-4.97); Red Cell Distribution Width 16.4 % (11.5-14.5); Segmented Neutrophils % 93.3 %
[2017-01-03 04:52] LABS: BUN/Creatinine Ratio 31 (6-26); Calcium 8.9 mg/dL (8.6-10.8); Carbon Dioxide 31 mEq/L (19-29); Chloride 97 mEq/L (98-109); Glucose 127 mg/dL (70-99); Osmolality,Calculated 286 (280-300); Potassium 3.7 mEq/L (3.5-4.5); Sodium 135 mEq/L (136-145); eGFR For African Americans > 60 (> 60); eGFR For Non-African Americans > 60 (> 60)
[2017-01-03 04:53] LABS: Blood Urea Nitrogen 26 mg/dL (7-20)
[2017-01-03] MEDS: Acetaminophen 325 MG TABLET PO PRN ×2 (07:18→13:45)
[2017-01-03] MEDS: Nicotine 21 MG PATCH.TD24 TD SCH (09:20)
[2017-01-03] MEDS: Levofloxacin 500 MG/100 ML 500 MG/100 ML BAG IVPB SCH (09:20)
[2017-01-03] MEDS: Budesonide/Formoterol 160/4.5 MDI IH SCH ×2 (10:57→22:43)
--- NOTE | 2017-01-03 16:30 | Internal Med Progress Note ---
Date of Encounter: 01/03/17 Time of Encounter: 09:20 - Assessment and plan (1) Acute exacerbation of chronic obstructive pulmonary disease (COPD) Current Visit: No Status: Acute Assessment and plan: Getting better, continue with nebulizer therapy, systemic steroids and antibiotics. Continue BiPAP as tolerated. Possible discharge tomorrow in a.m. if stable. (2) DVT prophylaxis Current Visit: No Status: Acute Assessment and plan: EPCDs (3) Anxiety Current Visit: No Status: Chronic Assessment and plan: Continue with home medications. (4) Acute and chronic respiratory failure Current Visit: No Status: Acute Assessment and plan: Secondary to COPD exacerbation as discussed above. Continue BiPAP support Qualifiers: Respiratory failure complication: hypercapnia Qualified Code(s): J96.22 - Acute and chronic respiratory failure with hypercapnia - Subjective Interval history: This is my first encounter with the patient. The patient was seen and examined during rounds. Patient is breathing with a nasal cannula at 4 L/m. - Constitutional Vitals: Temp Pulse Resp BP Pulse Ox 98.1 F 100 20 158/90 98 01/03/17 15:26 01/03/17 15:26 01/03/17 15:26 01/03/17 15:26 01/03/17 15:26 General appearance: Present: cooperative, mild distress, A&O X 3 - Head Head exam: Present: atraumatic, normocephalic - Eye Eye exam: Present: PERRL, conjuntiva pink, sclera anicteric Pupils: Present: PERRL - Neck Neck exam general surgery: Present: supple, trachea midline. Absent: lymphadenopathy - Respiratory Respiratory exam: Present: decreased breath sounds, wheezes. Absent: accessory muscle use, rales, rhonchi - Cardiovascular Cardiovascular exam: Present: RRR, +S1, +S2. Absent: diastolic murmur, gallop, rubs, systolic murmur - GI/Abdominal GI/Abdominal exam: Present: normal bowel sounds, soft, no peritoneal signs. Absent: distended, tenderness - Extremities Exam Extremities exam: Present: warm, radial pulses palpable and symetrical. Absent : calf tenderness, cyanotic, pedal edema - Neurological Exam Neurological exam: Present: CN II-XII intact, oriented X3, no focal deficits. Absent: pronater drift, facial droop, speech deficit - Skin Skin exam: Present: dry, intact Internal Medicine: Result - Labs CBC & Chem 7: 01/03/17 04:30 01/03/17 04:30 Labs: Short CBC 01/03/17 Range/Units 04:30 WBC 10.5 (4.3-11.1) K/mcL Hgb 8.9 L (11.5-15.4) g/dL Hct 29.7 L (35.3-44.9) % Plt Count 254 (140-400) K/mcL Neutrophils # 9.8 H (1.6-8.9) K/mcL BMP 01/03/17 04:30 Sodium 135 L Potassium 3.7 Chloride 97 L Carbon Dioxide 31 H BUN 26 H D Creatinine 0.85 Glucose 127 H Calcium 8.9 - ABG Interpretation ABG results: ABG ABG pH 7.36 pH Units (7.32-7.45) 01/01/17 23:02 ABG pCO2 68 mmHg (35-45) H 01/01/17 23:02 ABG pO2 80 mmHg (85-104) L 01/01/17 23:02 ABG O2 Saturation 95 % (95-98) 01/01/17 23:02 Consult Discharge Plan - Plan Referrals: NO,PCP [Primary Care Provider] -
[2017-01-04] MEDS: methylPREDNISolone 125 MG/2 ML VIAL IVP SCH ×2 (00:21→09:46)
[2017-01-04] MEDS: Ipratropium/Albuterol Neb 3 ML IH SCH ×2 (03:58→10:55)
[2017-01-04] MEDS: Ketorolac 30 MG/ML VIAL IVP PRN (05:31)
[2017-01-04 05:59] LABS: Hematocrit 30.4 % (35.3-44.9); Hemoglobin 9.2 g/dL (11.5-15.4); Lymphocytes # 0.2 K/mcL (0.6-4.6); Lymphocytes % 2.2 %; Mean Corpuscular HGB Conc 30.3 g/dL (31.6-35.5); Mean Corpuscular Hemoglobin 25.8 pg (28.0-33.3); Mean Corpuscular Volume 85.4 fL (83.0-100.0); Mean Platelet Volume 9.8 fL (9.4-12.4); Monocytes # 0.2 K/mcL (0.0-1.3); Monocytes % 2.1 %; Neutrophils # 8.7 K/mcL (1.6-8.9); Platelet Count 250 K/mcL (140-400); Red Blood Count 3.56 M/mcL (3.82-4.97); Red Cell Distribution Width 16.5 % (11.5-14.5); Segmented Neutrophils % 94.7 %
[2017-01-04 06:09] LABS: BUN/Creatinine Ratio 29 (6-26); Blood Urea Nitrogen 23 mg/dL (7-20); Calcium 8.7 mg/dL (8.6-10.8); Carbon Dioxide 32 mEq/L (19-29); Chloride 99 mEq/L (98-109); Glucose 136 mg/dL (70-99); Osmolality,Calculated 294 (280-300); Potassium 3.4 mEq/L (3.5-4.5); Sodium 139 mEq/L (136-145); eGFR For African Americans > 60 (> 60); eGFR For Non-African Americans > 60 (> 60)
[2017-01-04] MEDS ORDERED: amLODIPine 5 MG TABLET PO SCH (09:00)
[2017-01-04] MEDS: Acetaminophen 325 MG TABLET PO PRN (09:44)
[2017-01-04] MEDS: Levofloxacin 500 MG/100 ML 500 MG/100 ML BAG IVPB SCH (09:44)
[2017-01-04] MEDS: ALPRAZolam 0.25 MG TABLET PO PRN (09:44)
[2017-01-04] MEDS: Nicotine 21 MG PATCH.TD24 TD SCH (09:46)
--- NOTE | 2017-01-04 10:04 | Discharge Summary ---
Date of Encounter: 01/04/17 Time of Encounter: 10:01 - Discharge Diagnosis (1) Acute exacerbation of chronic obstructive pulmonary disease (COPD) Priority: Primary Status: Acute (2) DVT prophylaxis Priority: Secondary Status: Acute (3) Anxiety Priority: Secondary Status: Chronic (4) Acute and chronic respiratory failure Priority: Secondary Status: Acute Qualifiers: Respiratory failure complication: hypercapnia Qualified Code(s): J96.22 - Acute and chronic respiratory failure with hypercapnia - Discharge Medications Prescriptions: predniSONE [PredniSONE] 40 mg PO DAILY #6 tablet Home Medications: Ipratropium/Albuterol Sulfate [Combivent Respimat Inhal [place]] 2 puff IH Q6H 01/13 [History] Metoprolol [Lopressor] 25 mg PO BID 03/05/16 [History] Ticagrelor [Brilinta] 90 mg PO BID #30 tablet 05/10/16 [Rx] amLODIPine [Norvasc] 5 mg PO DAILY #30 tablet 05/10/16 [Rx] Albuterol Sulfate [Albuterol Inhaler] 2 puff IH Q4H PRN 09/22/16 [History] Aspirin 81 mg PO DAILY 09/22/16 [History] Potassium Chloride 10 meq PO DAILY 09/22/16 [History] Saline Nasal [place] [[place] Nasal [place]] 2 spray NS Q2H PRN #0 bottle 09/27/16 [Rx ] Levothyroxine [Synthroid] 50 mcg PO QAM 11/18/16 [History] Pravastatin Sodium [Pravachol] 40 mg PO HS 11/18/16 [History] ALPRAZolam [Xanax 0.25 MG Tablet] 0.25 mg PO TID PRN #20 tablet 11/22/16 [Rx] Ferrous Sulfate 325 mg PO TIDWM #60 tablet 11/22/16 [Rx] Nicotine Patch [Nicoderm] 21 mg TD HS #30 patch.td24 11/22/16 [Rx] Losartan Potassium [Cozaar] 100 mg PO DAILY 01/02/17 [History] Trazodone HCl 100 mg PO HS 01/02/17 [History] predniSONE [PredniSONE] 40 mg PO DAILY #6 tablet 01/04/17 [Rx] Allergies/Adverse Reactions: Allergies clopidogrel [From Plavix] Allergy (Verified 01/01/17 14:48) Itching codeine Allergy (Verified 01/01/17 14:48) Itching Date of admission: 01/01/17 21:42 Primary care physician: PCP NO Consults: 01/01/17 21:53 Consult to Blow Torch Operator [CONS] Routine Reason for SW Consult: home with spouse, home oxygen, end stage COPD Discharging clinician: Mikal Ochoa Anticipated date of discharge: 01/04/17 - Patient Status Disposition: Home, Self-Care Condition: Fair Functional capacity at discharge: independent ambulation Overall status at discharge: patient is back to baseline - Discharge Instructions Follow Up With: NO,PCP [Primary Care Provider] - - Diet and Activity Activity: increase activity as tolerated Diet: advance to your usual diet Interval History: Ms. Mckeon is a 66 year old female with advanced COPD, lung cancer status post chemotherapy and radiation, aortic aneurysm, coronary artery disease, and GI bleed presented to the emergency department today with complaints of chest pain and shortness of breath. On my exam, patient was somnolent and I was unable to get a review of systems. In reviewing the emergency department notes, patient stated she had increased shortness of breath for the last week, had chest pain radiating to her back, and numbness in her jaw and left arm, which she reported was similar to the pain she felt when she had her aortic tear. Evaluation in the emergency department revealed anemia which was consistent with her baseline , troponin was negative at 0.00, chest x-ray showed COPD with no evidence of acute cardiopulmonary disease, CT of a of the chest showed no PE, stable size of the aneurysm in the descending aorta. EKG with no acute ischemic changes. She was given IV steroids and DuoNeb treatments, aspirin, Ativan, and Levaquin. Her respiratory distress improved and chest pain resolved. On exam, patient was sleeping, would arouse briefly, but would fall back asleep immediately, very somnolent. Not able to obtain review of systems. Stat ABG and bipap ordered. Lungs had bilateral diffuse rhonchi and wheezes. Heart had regular rate and rhythm. Hospital course: Ms. Mckeon is a 66 year old female admitted due to a COPD exacerbation. She did receive therapy with systemic steroids, antibiotics and nebulizer therapy, she has improved clinically and will be discharged home today. She will follow-up with her primary care physician, she will continue with long- term oxygen therapy. The plan of care was explained in detail to the patient, she verbally expressed understanding. - Time Spent with Patient Total time spent providing and/or coordinating discharge services: - Constitutional Vitals: Temp Pulse Resp BP Pulse Ox 98.4 F 101 16 175/105 94 01/04/17 06:49 01/04/17 06:49 01/04/17 06:49 01/04/17 06:49 01/04/17 06:49 General appearance: Present: cooperative, mild distress, A&O X 3 - Head Head exam: Present: atraumatic, normocephalic - Eye Eye exam: Present: PERRL, conjuntiva pink, sclera anicteric Pupils: Present: PERRL - Neck Neck exam general surgery: Present: supple, trachea midline. Absent: lymphadenopathy - Respiratory Respiratory exam: Present: decreased breath sounds. Absent: accessory muscle use, rales, rhonchi, wheezes - Cardiovascular Cardiovascular exam: Present: RRR, +S1, +S2. Absent: diastolic murmur, gallop, rubs, systolic murmur - GI/Abdominal GI/Abdominal exam: Present: normal bowel sounds, soft, no peritoneal signs. Absent: distended, tenderness - Extremities Exam Extremities exam: Present: warm, radial pulses palpable and symetrical. Absent : calf tenderness, cyanotic, pedal edema - Neurological Exam Neurological exam: Present: CN II-XII intact, oriented X3, no focal deficits. Absent: pronater drift, facial droop, speech deficit - Skin Skin exam: Present: dry, intact - VTE Documentation of Mechanical Device: Intermittent pneumatic compression device
[2017-01-04 10:32] VITALS: BP 163/92
[2017-01-04] MEDS: Budesonide/Formoterol 160/4.5 MDI IH SCH (10:55)
== END 2017-01-04 14:05 | disposition home or self-care (01) | DRG 190 ==
LOC: EMEROO 14:36 → 3BNU 14:36 → SUATTDRO 21:42
PROVIDERS: ADMIT Hospitalist; ATTEND Internal Medicine

== ENCOUNTER 2017-01-31 01:54 | Inpatient (IN) ==
[2017-01-31] MEDS ORDERED: Ipratropium/Albuterol Neb 3 ML IH ONE (02:01)
[2017-01-31] MEDS ORDERED: methylPREDNISolone 125 MG/2 ML VIAL IVP ONE (02:03)
--- NOTE | 2017-01-31 02:44 | Emergency Department Note ---
Disposition Clinical Impression: Acute exacerbation of chronic obstructive pulmonary disease (COPD) Disposition: Admitted As Inpatient Condition: Fair Referrals: NO,PCP [Primary Care Provider] - Forms: ED Satisfaction Letter Time of Disposition: 04:05 SOB HPI - General Chief Complaint: ED Shortness of Breath/Dyspnea Stated Complaint: INDIRA Time Seen by Provider: 01/31/17 01:59 Source: patient, EMS Limitations: no limitations Nursing Notes Reviewed: Yes Vital Signs Reviewed: Yes - History of Present Illness Pt Subjective Complaint: shortness of breath Onset (ago): day(s) (4) Severity: moderate Consistency/Duration: gradually worsening Improves with: nothing Worsens with: nothing Known history of: COPD Associated symptoms: Reports: cough, wheezing, sputum production. Denies: chest pain, fever, lower extremity pain, syncope, abdominal pain Treatment prior to arrival: oxygen, bronchodilator Cough present: No - Related Data Home Medications Medication Instructions Recorded Confirmed Ipratropium/Albuterol Sulfate 2 puff IH Q6H 03/05/16 01/02/17 [Combivent Respimat Inhal [place]] Metoprolol [Lopressor] 25 mg PO BID 03/05/16 01/02/17 Albuterol Sulfate [Albuterol 2 puff IH Q4H PRN 09/22/16 01/02/17 Inhaler] Aspirin 81 mg PO DAILY 09/22/16 01/02/17 Potassium Chloride 10 meq PO DAILY 09/22/16 11/18/16 Levothyroxine [Synthroid] 50 mcg PO QAM 11/18/16 01/02/17 Pravastatin Sodium [Pravachol] 40 mg PO HS 11/18/16 01/02/17 Losartan Potassium [Cozaar] 100 mg PO DAILY 01/02/17 01/02/17 Trazodone HCl 100 mg PO HS 01/02/17 01/02/17 Previous Rx's Medication Instructions Recorded Ticagrelor [Brilinta] 90 mg PO BID #30 tablet 05/10/16 amLODIPine [Norvasc] 5 mg PO DAILY #30 tablet 05/10/16 Saline Nasal [place] [[place] Nasal 2 spray NS Q2H PRN #0 bottle 09/27/16 [place]] ALPRAZolam [Xanax 0.25 MG Tablet] 0.25 mg PO TID PRN #20 tablet 11/22/16 Ferrous Sulfate 325 mg PO TIDWM #60 tablet 11/22/16 Nicotine Patch [Nicoderm] 21 mg TD HS #30 patch.td24 11/22/16 predniSONE [PredniSONE] 40 mg PO DAILY #6 tablet 01/04/17 Allergies Allergy/AdvReac Type Severity Reaction Status Date / Time clopidogrel [From Plavix] Allergy Itching Verified 01/01/17 14:48 codeine Allergy Itching Verified 01/01/17 14:48 All systems ED: reviewed and negative except as stated. Constitutional: Denies: fever, chills Eyes: Denies: eye discharge ENT ED: Denies: throat pain Cardiovascular: Denies: palpitations Respiratory: Reports: as per HPI Gastrointestinal: Denies: abdominal pain, nausea, vomiting Genitourinary: Denies: dysuria Musculoskeletal: Denies: back pain Integumentary: Denies: rash Neurological: Denies: headache Psychiatric: Denies: anxiety, depression Endocrine: Denies: fatigue Hematological/Lymphatic: Denies: easy bleeding Allergic/Immunologic: Denies: facial swelling Past Medical History - Past Medical History Medical history: Reports: aortic aneurysm, asthma, cancer, COPD, coronary artery disease, GI bleed, hypertension, other Surgical history: Reports: appendectomy, cancer surgery, cholecystectomy, SHERICE/ BSO, other Psychiatric history: Reports: no psych history COPY CENTER OPERATOR history: Reports: no COPY CENTER OPERATOR history - Social History Smoking Status: Current every day smoker Smokeless Tobacco Status: No Alcohol use: Reports: none Drug use: Reports: none Physical Exam - General Limitations: no limitations General appearance: alert, in no apparent distress - Head Head exam: atraumatic, normocephalic - Eye Eye exam: Present: EOMI. Absent: conjunctival injection - ENT ENT exam: mucous membranes moist - Neck Neck exam: Present: full ROM. Absent: lymphadenopathy - Chest Chest inspection: Present: normal inspection, symmetric chest wall rise - Respiratory Respiratory exam: Present: wheezes. Absent: accessory muscle use, prolonged expiratory phase - Cardiovascular Cardiovascular exam: Present: regular rate, normal rhythm - Abdominal Exam Abdominal exam: Present: soft, Non-Tender - Extremities Exam Extremities exam: Present: normal inspection, full ROM, normal capillary refill - Back Exam Back exam: Present: full ROM - Neurological Exam Neurological exam: Present: alert, oriented X3 - Psychiatric Psychiatric exam: Present: normal affect, normal mood - Skin Skin exam: Present: warm, dry, intact, normal color. Absent: rash, cyanosis, diaphoresis Course Course Narrative: 66-year-old female with known history of COPD arrives via squad from home with dyspnea. Patient reports her shortness of breath has been worsening over the past 4 days. She had tried breathing treatments at home but they had not helped which prompted her to call the squad. She does mention a history of lung cancer but states she did she has been cancer free for 2 years. On examination she has bilateral wheezing, mild distress. Patient currently on albuterol provided in squad. Squad reports patient had taken 2-1/ 2 nebs prior to their arrival. Workup initiated. - Reevaluation(s) Reevaluation #1: Patient received breathing treatments, and IV steroids. She is resting more comfortable and her exam bed. Lung auscultation, wheezing has improved, but she still has mild bilateral wheezes. good oxygen saturation and no visible distress. Chest x-ray shows no acute cardiopulmonary concerns. Labs pending. Did have a discussion with patient regarding her management of her breathing issues. She sees her family doctor Dr. Goncalves has needed. Uses duo nebs at home every 6 hours, she is on constant 4 L of oxygen at home. She lives with her . She denies any fever. She has had a cough, she states she has not felt herself, she states her breathing this week has been so bad that she thought she was going to . Time: 02:44 Reevaluation #2: We completed a trial of ambulation .She had ambulated on 6 L of oxygen, she did have stable O2 sats howeverpatient became more weak, wheezing has worsened. Today discussion patient regarding admission versus discharge to home, she mentions that she has become more weak over the past 4 days, she does not feel comfortable returning home. Discussed with Dr. Lopez who did have facetime with patient, agreed with workup and evaluation, decision to admit. Time: 03:54 Vital Signs Temperature 98.9 F 01/31/17 01:56 Pulse Rate 87 01/31/17 01:56 Respiratory Rate 18 01/31/17 01:56 Blood Pressure 116/76 01/31/17 01:56 O2 Sat by Pulse Oximetry 100 01/31/17 01:56 Temperature 98.9 F 01/31/17 01:56 Pulse Rate 79 01/31/17 03:05 Respiratory Rate 16 01/31/17 03:05 Blood Pressure 112/58 01/31/17 03:05 O2 Sat by Pulse Oximetry 100 01/31/17 03:05 Oxygen Delivery Oxygen Delivery Nasal Cannula Shortness of Breath/Dyspnea - MDM Narrative Medical decision making narrative: 66-year-old female presents with worsening shortness of breath, and weakness over the past week. She relates this to her COPD. She has been utilizing home DuoNeb treatments and continuous oxygen however she had no improvement at home. Between her treatments just prior to arrival, squad, and here She received a total of 4 DuoNeb abscess this evening, we also gave her a dose of steroids here. Her wheezing had improved but still persisted. She had no evidence of pneumonia on the chest x-ray. I did discuss with her possibly discharge to home however she had mentioned that she felt uncomfortable, had been weak on her home treatments. Patient was discussed with Dr. Lopez who had face time with patient and agreed with workup and evaluation. Patient was discussed with hospitalist who accepted patient for COPD exacerbation. - Medical Records Medical records reviewed: Yes I reviewed the patient's medical records. - Lab Data Lab results reviewed: Yes I reviewed the patient's lab results. Result diagrams: 01/31/17 02:45 01/31/17 02:45 Lab Results 01/31/17 01/31/17 01/31/17 Range/Units 02:45 02:45 02:45 WBC 9.5 (4.3-11.1) K/mcL RBC 3.57 L (3.82-4.97) M/mcL Hgb 9.1 L (11.5-15.4) g/dL Hct 31.4 L (35.3-44.9) % MCV 88.0 (83.0-100.0) fL MCH 25.5 L (28.0-33.3) pg MCHC 29.0 L (31.6-35.5) g/dL RDW 16.9 H (11.5-14.5) % Plt Count 271 (140-400) K/mcL MPV 9.1 L (9.4-12.4) fL Immature Gran % 0.4 (0-4) % Seg Neutrophils % 79.2 % Lymphocytes % 8.2 % Monocytes % 8.4 % Eosinophils % 3.5 % Basophils % 0.3 % Neutrophils # 7.5 (1.6-8.9) K/mcL Lymphocytes # 0.8 (0.6-4.6) K/mcL Monocytes # 0.8 (0.0-1.3) K/mcL Eosinophils # 0.3 (0.0-0.6) K/mcL Basophils # 0.0 (0.0-0.2) K/mcL Sodium 137 (136-145) mEq/L Potassium 4.4 (3.5-4.5) mEq/L Chloride 98 (98-109) mEq/L Carbon Dioxide 34 H (19-29) mEq/L BUN 13 (7-20) mg/dL Creatinine 0.80 (0.57-1.11) mg/dL Est GFR ( Amer) > 60 (> 60) Est GFR (Non-Af Amer) > 60 (> 60) BUN/Creatinine Ratio 16 (6-26) Glucose 107 H (70-99) mg/dL Calculated Osmolality 285 (280-300) Calcium 9.3 (8.6-10.8) mg/dL Total Bilirubin 0.3 (0.2-1.2) mg/dL Direct Bilirubin 0.2 (0.0-0.5) mg/dL Indirect Bilirubin 0.1 (0.0-1.2) mg/dL AST 33 (5-34) Units/L ALT 21 (0-55) Units/L Alkaline Phosphatase 83 (38-126) Units/L Troponin I 0.01 (0-0.03) ng/mL B-Natriuretic Peptide (0-100) pg/mL Serum Total Protein 6.6 (6.0-8.3) g/dL Albumin 3.6 (3.5-5.0) g/dL Globulin 3.0 (2.4-3.5) g/dL Albumin/Globulin Ratio 1.2 (1.1-2.2) 01/31/17 Range/Units 02:45 WBC (4.3-11.1) K/mcL RBC (3.82-4.97) M/mcL Hgb (11.5-15.4) g/dL Hct (35.3-44.9) % MCV (83.0-100.0) fL MCH (28.0-33.3) pg MCHC (31.6-35.5) g/dL RDW (11.5-14.5) % Plt Count (140-400) K/mcL MPV (9.4-12.4) fL Immature Gran % (0-4) % Seg Neutrophils % % Lymphocytes % % Monocytes % % Eosinophils % % Basophils % % Neutrophils # (1.6-8.9) K/mcL Lymphocytes # (0.6-4.6) K/mcL Monocytes # (0.0-1.3) K/mcL Eosinophils # (0.0-0.6) K/mcL Basophils # (0.0-0.2) K/mcL Sodium (136-145) mEq/L Potassium (3.5-4.5) mEq/L Chloride (98-109) mEq/L Carbon Dioxide (19-29) mEq/L BUN (7-20) mg/dL Creatinine (0.57-1.11) mg/dL Est GFR ( Amer) (> 60) Est GFR (Non-Af Amer) (> 60) BUN/Creatinine Ratio (6-26) Glucose (70-99) mg/dL Calculated Osmolality (280-300) Calcium (8.6-10.8) mg/dL Total Bilirubin (0.2-1.2) mg/dL Direct Bilirubin (0.0-0.5) mg/dL Indirect Bilirubin (0.0-1.2) mg/dL AST (5-34) Units/L ALT (0-55) Units/L Alkaline Phosphatase (38-126) Units/L Troponin I (0-0.03) ng/mL B-Natriuretic Peptide 21 (0-100) pg/mL Serum Total Protein (6.0-8.3) g/dL Albumin (3.5-5.0) g/dL Globulin (2.4-3.5) g/dL Albumin/Globulin Ratio (1.1-2.2) - Radiology Data Radiology results reviewed: Yes I reviewed the patient's radiology results. - EKG Data EKG attestation: Yes I reviewed and interpreted this EKG. EKG results narrative: Sinus rhythm, ventricular rate 87,.
[2017-01-31 02:51] LABS: Basophils % 0.3 %; Eosinophils # 0.3 K/mcL (0.0-0.6); Eosinophils % 3.5 %; Hematocrit 31.4 % (35.3-44.9); Hemoglobin 9.1 g/dL (11.5-15.4); Immature Granulocytes % 0.4 % (0-4); Lymphocytes # 0.8 K/mcL (0.6-4.6); Lymphocytes % 8.2 %; Mean Corpuscular Hemoglobin 25.5 pg (28.0-33.3); Mean Platelet Volume 9.1 fL (9.4-12.4); Monocytes # 0.8 K/mcL (0.0-1.3); Monocytes % 8.4 %; Neutrophils # 7.5 K/mcL (1.6-8.9); Platelet Count 271 K/mcL (140-400); Red Blood Count 3.57 M/mcL (3.82-4.97); Red Cell Distribution Width 16.9 % (11.5-14.5); Segmented Neutrophils % 79.2 %
--- NOTE | 2017-01-31 02:55 | Emergency Department Note ---
START Narrative - START START: I examined this patient and my medical decision-making was reviewed with the TRANSPORT MEDIC/PA/Advanced Practice Nurse/Resident Physician. I agree with the documented findings, disposition and treatment plan as described except to the extent set forth below. ED attending note: Patient seen with physician school office assistant Mo Pedersen. Please see a copy of his note for details of the H&P, evaluation, management and disposition of this patient. We independently had [id number] contact with the patient Briefly: 66-year-old female by EMS for shortness of breath. Patient has COPD he is home O2 dependent. Was admitted last month with extensive workup which was otherwise unremarkable. Patient expiratory wheezing near tachycardia and mild hypoxia. Patient responding well to DuoNeb treatment. Chest x-ray read by radiology as COPD otherwise no acute pulmonary disease. Labs pending. Disposition pending. Provided 30 minutes of critical care services for this patient.
[2017-01-31 03:06] LABS: Alanine Aminotransferase 21 Units/L (0-55); Albumin 3.6 g/dL (3.5-5.0); Albumin/Globulin Ratio 1.2 (1.1-2.2); Alkaline Phosphatase 83 Units/L (38-126); Aspartate Amino Transferase 33 Units/L (5-34); BUN/Creatinine Ratio 16 (6-26); Bilirubin,Direct 0.2 mg/dL (0.0-0.5); Bilirubin,Indirect 0.1 mg/dL (0.0-1.2); Bilirubin,Total 0.3 mg/dL (0.2-1.2); Blood Urea Nitrogen 13 mg/dL (7-20); Calcium 9.3 mg/dL (8.6-10.8); Carbon Dioxide 34 mEq/L (19-29); Chloride 98 mEq/L (98-109); Glucose 107 mg/dL (70-99); Osmolality,Calculated 285 (280-300); Potassium 4.4 mEq/L (3.5-4.5); Sodium 137 mEq/L (136-145); Total Protein 6.6 g/dL (6.0-8.3); eGFR For African Americans > 60 (> 60); eGFR For Non-African Americans > 60 (> 60)
--- NOTE | 2017-01-31 05:28 | Internal Med History&Physical ---
Date of Encounter: 01/31/17 Time of Encounter: 05:23 Assessment and Plan (1) Acute exacerbation of chronic obstructive pulmonary disease (COPD) Current visit: No Status: Acute Supportive therapy with supplemental oxygen, duonebs scheduled, and respiratory therapy consult for pulmonary toilet Start patient on Levaquin 500 mg daily and steroids at 40 mg IV q8hr She may benefit from nocturnal BiPAP, will qualify Consider pulmonary consult if she does not improve clinically (2) Hypertension Current visit: No Status: Chronic Blood pressure within normal limits upon admission Continue home Losartan and Norvasc Add PRN Hydralazine 10 mg q6hr for SBP > 150 Qualifiers: Hypertension type: essential hypertension Qualified Code(s): I10 - Essential (primary) hypertension (3) Thoracic aortic aneurysm Current visit: No Status: Chronic 4.2 descending thoracic aneurysm noted in CTA obtained last month, which was stable in appearance Continue with home ASA/Brilinta and tight control of blood pressures Qualifiers: Qualified Code(s): I71.2 - Thoracic aortic aneurysm, without rupture (4) Anemia Current visit: No Status: Chronic Hb 9.1 which is near her baseline over the past several months She did have iron panel drawn in October which showed iron deficiency, and she has been out of her iron tablets Will resume them while she is here and monitor for bleeding Qualifiers: Anemia type: iron deficiency Qualified Code(s): D50.9 - Iron deficiency anemia, unspecified (5) Hypothyroidism Current visit: No Status: Chronic TSH last checked almost a year ago was 25.8, will re-obtain now Start on home Levothyroxine at 50 mcg, but this may need to be adjusted depending on new TSH levels Qualifiers: Hypothyroidism type: unspecified Qualified Code(s): E03.9 - Hypothyroidism , unspecified (6) DVT prophylaxis Current visit: No Status: Acute Heparin 5000 units BID Internal Medicine - H&P: HPI Chief complaint: SOB Admitted From: Home Plans for Post Hospital Care: Home History of present illness: Ms. Mckeon is a 66 year old female who presents to the emergency department with progressive shortness of breath over the past 4 days. She gets short of breath with minimal exertion. She states that over the past several days her breathing treatments have not been as effective as usual and prompted her to call the squad. She describes a rattling when she breathes, but has been unable to expel any sputum. Patient also reports low-grade fever of 99 degrees but denies any nausea, vomiting, lightheadedness. She does have a history of COPD and is on 4 L of oxygen throughout the day. Patient also states she had lung cancer in her right upper lobe which had been resected, and she also underwent chemoradiation. She has been cancer free for the past 2 years. Patient also describes chronic left-sided chest pain that worsens with cough, but also has known aortic aneurysms and she takes both aspirin and Brilinta for the past several years. Past Med Surg Social Fam HX - Past Medical History Medical history: aortic aneurysm, asthma, cancer, COPD, coronary artery disease , GI bleed, hypertension, other Psychiatric history: no psych history - Past Surgical History Surgical History: appendectomy, cancer surgery, cholecystectomy, SHERICE/BSO, other - Social History Smoking Status: Current every day smoker Smokeless Tobacco Status: No Alcohol use: none Drug use: none - Family History Mother Adopted: No Living Status: Hx Family Cardiac Disorders: No Hx Family Respiratory Disorders: Yes (COPD) Hx Family Cancer: No Hx Family GI Disorders: No Hx Family Endocrine Disorder: No Hx Family Neuromuscular Disorders: No Hx Family Neurologic Disorders: No Hx Family HEENT Disorders: No Hx Family Autoimmune Disorders: No Father Adopted: No Living Status: Hx Family Cardiac Disorders: No Hx Family Respiratory Disorders: No Hx Family Cancer: No Hx Family GI Disorders: No Hx Family Endocrine Disorder: No Hx Family Neuromuscular Disorders: No Hx Family Neurologic Disorders: No Hx Family HEENT Disorders: No Hx Family Autoimmune Disorders: No Sister Adopted: No Living Status: Still Living Hx Family Cardiac Disorders: No Hx Family Respiratory Disorders: No Hx Family Cancer: No Hx Family GI Disorders: No Hx Family Endocrine Disorder: No Hx Family Neuromuscular Disorders: No Hx Family Neurologic Disorders: Yes (MS) Hx Family HEENT Disorders: No Hx Family Autoimmune Disorders: No Brother Adopted: No Living Status: Still Living Hx Family Cardiac Disorders: No Hx Family Respiratory Disorders: No Hx Family Cancer: No Hx Family GI Disorders: No Hx Family Endocrine Disorder: No Hx Family Neuromuscular Disorders: No Hx Family Neurologic Disorders: No Hx Family HEENT Disorders: No Hx Family Autoimmune Disorders: No Internal Medicine - H&P: Meds Ipratropium/Albuterol Sulfate [Combivent Respimat Inhal [place]] 2 puff IH Q6H 01/13 [History] Metoprolol [Lopressor] 25 mg PO BID 03/05/16 [History] Ticagrelor [Brilinta] 90 mg PO BID #30 tablet 05/10/16 [Rx] amLODIPine [Norvasc] 5 mg PO DAILY #30 tablet 05/10/16 [Rx] Albuterol Sulfate [Albuterol Inhaler] 2 puff IH Q4H PRN 09/22/16 [History] Aspirin 81 mg PO DAILY 09/22/16 [History] Potassium Chloride 10 meq PO DAILY 09/22/16 [History] Saline Nasal [place] [[place] Nasal [place]] 2 spray NS Q2H PRN #0 bottle 09/27/16 [Rx ] Levothyroxine [Synthroid] 50 mcg PO QAM 11/18/16 [History] Pravastatin Sodium [Pravachol] 40 mg PO HS 11/18/16 [History] ALPRAZolam [Xanax 0.25 MG Tablet] 0.25 mg PO TID PRN #20 tablet 11/22/16 [Rx] Ferrous Sulfate 325 mg PO TIDWM #60 tablet 11/22/16 [Rx] Nicotine Patch [Nicoderm] 21 mg TD HS #30 patch.td24 11/22/16 [Rx] Losartan Potassium [Cozaar] 100 mg PO DAILY 01/02/17 [History] Trazodone HCl 100 mg PO HS 01/02/17 [History] predniSONE [PredniSONE] 40 mg PO DAILY #6 tablet 01/04/17 [Rx] Allergies clopidogrel [From Plavix] Allergy (Verified 01/01/17 14:48) Itching codeine Allergy (Verified 01/01/17 14:48) Itching All Systems PM: A 10-system review of systems was performed and is negative for pertinent findings except as documented above in the HPI. - Constitutional Constitutional: chills, fever(s) (low grade), weakness, no night sweats - EENT Eyes: no change in vision, no discharge, no pain, no photophobia Ears: no ear discharge, no ear pain, no tinnitus Nose, mouth and throat: no dysphagia, no nasal discharge, no neck pain, no sore throat - Cardiovascular Cardiovascular ROS IM: chest pain, dyspnea, dyspnea on exertion, no diaphoresis , no lightheadedness, no palpitations, no syncope - Respiratory Respiratory: cough, chest congestion, pain with cough, no dyspnea, no wheezing, no excessive phlegm production, no change in phlegm color - Gastrointestinal Gastrointestinal: no abdominal pain, no diarrhea, no hematemesis, no hematochezia, no melena, no nausea, no vomiting - Genitourinary Genitourinary: urinary urgency, no change in urinary stream, no dysuria, no flank pain, no hematuria - Musculoskeletal Musculoskeletal ROS IM: no numbness, no tingling - Integumentary Integumentary IM: no rash, no unusual bruising - Neurological Neurological ROS: no confusion, no convulsions, no focal weakness, no numbness, no tingling, no tremor(s) - Hematologic/Lymphatic Hematologic/Lymphatic: no easy bruising - Constitutional Vitals: Temp Pulse Resp BP Pulse Ox 98.9 F 79 18 117/68 100 01/31/17 01:56 01/31/17 03:05 01/31/17 04:54 01/31/17 04:54 01/31/17 03:05 General appearance: Present: cachectic, cooperative, A&O X 3, pleasant, no acute distress, answers questions appropriately - Head Head exam: Present: atraumatic, normocephalic - Eye Eye exam: Present: PERRL, conjuntiva pink, sclera anicteric - Neck Neck exam general surgery: Present: supple, trachea midline. Absent: lymphadenopathy - Respiratory Respiratory exam: Present: wheezes. Absent: accessory muscle use, rales, rhonchi - Cardiovascular Cardiovascular exam: Present: RRR, +S1, +S2. Absent: diastolic murmur, gallop, rubs, systolic murmur - GI/Abdominal GI/Abdominal exam: Present: normal bowel sounds, soft, no peritoneal signs. Absent: distended, tenderness - Extremities Exam Extremities exam: Present: warm, radial pulses palpable and symetrical. Absent : calf tenderness, cyanotic, pedal edema - Neurological Exam Neurological exam: Present: alert, oriented X3, no focal deficits. Absent: facial droop, speech deficit - Skin Skin exam: Present: dry, intact Internal Med - H&P Results - Labs CBC & Chem 7: 01/31/17 02:45 01/31/17 02:45
[2017-01-31] MEDS ORDERED: Ondansetron ODT 4 MG TAB.RAPDIS SL PRN (05:44)
[2017-01-31] MEDS ORDERED: Acetaminophen 325 MG TABLET PO PRN (05:44)
[2017-01-31] MEDS ORDERED: Ipratropium/Albuterol Neb 3 ML IH PRN (05:44)
[2017-01-31] MEDS ORDERED: Naloxone 0.4 MG/ML INJ IVP PRN (05:44)
[2017-01-31] MEDS ORDERED: Nicotine 21 MG PATCH.TD24 TD SCH (06:00)
[2017-01-31] MEDS: *HR* Heparin 5,000 UNIT/ML VIAL SQ SCH ×2 (06:16→17:28)
[2017-01-31] MEDS: Levofloxacin 500 MG/100 ML 500 MG/100 ML BAG IVPB SCH (06:16)
[2017-01-31] MEDS: Nicotine 21 MG PATCH.TD24 TD SCH ×2 (06:17→08:51)
[2017-01-31 06:50] LABS: Thyroid Stimulating Hormone 72.911 mcIU/mL (0.350-4.840)
[2017-01-31] MEDS: Ipratropium/Albuterol Neb 3 ML IH SCH ×5 (08:23→23:55)
[2017-01-31] MEDS: Budesonide/Formoterol 160/4.5 MDI IH SCH ×2 (08:23→20:36)
[2017-01-31] MEDS: MethylPREDNISolone 40 MG/ML VIAL IVP SCH ×2 (08:52→17:28)
[2017-01-31] MEDS: Aspirin 81 MG TAB.CHEW PO SCH (08:52)
[2017-01-31] MEDS: amLODIPine 5 MG TABLET PO SCH (08:52)
[2017-01-31] MEDS: *HR* Ticagrelor 90 MG TABLET PO SCH ×2 (08:52→21:35)
--- NOTE | 2017-01-31 10:23 | Event Note ---
Date of Encounter: 01/31/17 Time of Encounter: 09:05 Patient was seen and evaluated at about 9:05 AM. Patient was standing at sink in bedroom, assisted by nurse, washing her hands after using bedside commode. Patient was visibly short of breath with audible wheezing heard from the door. Patient is wearing supplemental oxygen, states that she normally wears 4 L at home. She is also wearing 4 L here. She was in distress as she was seated, was not able to speak initially. Inspiratory and expiratory wheezing heard in posterior lung weber, and addition to audible wheezing. Patient was tachycardic, S1 and S2 were heard. After brief rest, patient was able to speak in short phrases. She states that this is normal for her. We discussed the fact that she needed to stay and continue steroids and antibiotics and monitoring. She was agreeable to this. Patient denies headache, nausea, vomiting, diarrhea, abdominal pain, chest pain , dizziness, rhinorrhea or postnasal drip. She does report productive cough with white sputum. She denies fevers or chills. Otherwise, physical exam was unremarkable. No anterior or posterior cervical adenopathy, S1 and S2 heard, regular rate and rhythm. Abdomen is soft and nondistended with bowel sounds heard. There is no peripheral edema. +2 pedal pulses bilaterally, +1 radial pulses bilaterally. Sats remained greater than 92% on 2 L of oxygen. Her vital signs are stable. Labs are within normal limits other than TSH which is elevated at 72. Will draw free T4. After results, patient may need levothyroxine adjustment. We will continue the Levaquin 500 mg daily and steroids 40 mg IV every 8 hours. We will continue breathing treatments, telemetry, and continuous pulse ox.
[2017-01-31] MEDS: ALPRAZolam 0.25 MG TABLET PO PRN (21:45)
[2017-02-01] MEDS: MethylPREDNISolone 40 MG/ML VIAL IVP SCH ×3 (00:11→18:17)
[2017-02-01 03:59] LABS: Basophils % 0.2 %; Platelet Count 277 K/mcL (140-400)
[2017-02-01 04:01] LABS: Hematocrit 30.1 % (35.3-44.9); Hemoglobin 9.1 g/dL (11.5-15.4); Immature Granulocytes % 0.7 % (0-4); Lymphocytes # 0.2 K/mcL (0.6-4.6); Lymphocytes % 3.9 %; Mean Corpuscular HGB Conc 30.2 g/dL (31.6-35.5); Mean Corpuscular Hemoglobin 26.5 pg (28.0-33.3); Mean Corpuscular Volume 87.5 fL (83.0-100.0); Mean Platelet Volume 9.8 fL (9.4-12.4); Monocytes # 0.1 K/mcL (0.0-1.3); Neutrophils # 5.5 K/mcL (1.6-8.9); Red Blood Count 3.44 M/mcL (3.82-4.97); Red Cell Distribution Width 16.8 % (11.5-14.5); Segmented Neutrophils % 93.2 %
[2017-02-01 04:13] LABS: BUN/Creatinine Ratio 24 (6-26); Blood Urea Nitrogen 18 mg/dL (7-20); Calcium 9.2 mg/dL (8.6-10.8); Carbon Dioxide 27 mEq/L (19-29); Chloride 101 mEq/L (98-109); Glucose 133 mg/dL (70-99); Osmolality,Calculated 284 (280-300); Potassium 4.2 mEq/L (3.5-4.5); Sodium 135 mEq/L (136-145); eGFR For African Americans > 60 (> 60); eGFR For Non-African Americans > 60 (> 60)
[2017-02-01] MEDS: Ipratropium/Albuterol Neb 3 ML IH SCH ×5 (04:28→19:50)
[2017-02-01 04:30] LABS: Anisocytosis 1+ (Not Present); Hypochromasia Present (Not Present); Platelet Estimate Normal (Normal)
[2017-02-01] MEDS: *HR* Heparin 5,000 UNIT/ML VIAL SQ SCH ×2 (05:04→18:17)
[2017-02-01] MEDS: Levofloxacin 500 MG/100 ML 500 MG/100 ML BAG IVPB SCH (05:04)
[2017-02-01] MEDS: Budesonide/Formoterol 160/4.5 MDI IH SCH ×2 (07:51→19:50)
[2017-02-01] MEDS: amLODIPine 5 MG TABLET PO SCH (09:27)
[2017-02-01] MEDS: Aspirin 81 MG TAB.CHEW PO SCH (09:27)
[2017-02-01] MEDS: Nicotine 21 MG PATCH.TD24 TD SCH (09:28)
[2017-02-01] MEDS: *HR* Ticagrelor 90 MG TABLET PO SCH ×2 (09:28→21:58)
[2017-02-01] MEDS: ALPRAZolam 0.25 MG TABLET PO PRN ×2 (09:30→21:58)
[2017-02-01] MEDS ORDERED: Albuterol 2.5 MG/3 ML NEBULIZER IH PRN (10:33)
--- NOTE | 2017-02-01 10:33 | Internal Med Progress Note ---
Date of Encounter: 02/01/17 Time of Encounter: 07:50 - Assessment and plan (1) Acute exacerbation of chronic obstructive pulmonary disease (COPD) Current Visit: No Status: Acute Assessment and plan: Patient reports one-week history of worsening shortness of breath over baseline. She normally wears 4 L of oxygen at home, she is also wearing 4 L here. She is maintaining her sats greater than 92%. We will continue supportive therapy with the oxygen, DuoNeb's, Levaquin daily, Solu-Medrol 40 mg IV every 8 hours. Patient has not improved today. She is still unable to get up and move about her room without significant increase in shortness of breath. She is still having inspiratory and expiratory wheezing. She denies chest pain or productive cough. She states that she is not better and is not ready to go home. Patient is still smoking at home. She is afebrile and there is no leukocytosis. Continue current treatment plan with IV antibiotics and steroids, supplemental oxygen, nebulizers scheduled and when necessary. Respiratory has consult it for pulmonary toilet and nocturnal BiPAP. Consider pulmonology consult in a.m. if she has not improved clinically over today's assessment. (2) Hypertension Current Visit: No Status: Chronic Assessment and plan: Well-controlled in inpatient setting. Continue current medications. Qualifiers: Hypertension type: essential hypertension Qualified Code(s): I10 - Essential (primary) hypertension (3) CAD (coronary artery disease) Current Visit: No Status: Chronic Assessment and plan: Patient denies chest pain. Continue telemetry and Brilinta, aspirin, Zocor, Cozaar, Norvasc Qualifiers: Coronary Disease-Associated Artery/Lesion type: [place] artery [place] vs. transplanted heart: [place] heart Associated angina: without angina Qualified Code(s): I25.10 - Atherosclerotic heart disease of [place] coronary artery without angina pectoris (4) Acute and chronic respiratory failure Current Visit: No Status: Acute Assessment and plan: Patient is dependent on oxygen. Wears 4 L at home. Currently is wearing 4 L here and maintaining saturations greater than 92%. Qualifiers: Respiratory failure complication: hypercapnia Qualified Code(s): J96.22 - Acute and chronic respiratory failure with hypercapnia (5) Hypothyroidism Current Visit: No Status: Chronic Assessment and plan: TSH is elevated, free T4 is low at 0.51. Patient will need to follow up with primary care on discharge for dosage adjustment. Qualifiers: Hypothyroidism type: unspecified Qualified Code(s): E03.9 - Hypothyroidism , unspecified (6) Descending thoracic aortic aneurysm Current Visit: No Status: Acute Assessment and plan: Chronic. Stable. 4.2 cm descending thoracic aneurysm noted in CTA from last month. We will continue with current blood thinners and monitor and control blood pressures. Pressures remain well-controlled in inpatient setting. Follow -up outpatient as scheduled. (7) Anemia Current Visit: No Status: Chronic Assessment and plan: Hemoglobin is holding steady at 9.1. This is chronic and per prior trend baseline for patient. We will continue to monitor and prepared to transfuse if hemoglobin reaches 8 or less and patient is symptomatic. Continue iron supplementation. Qualifiers: Anemia type: iron deficiency Iron deficiency anemia type: unspecified iron deficiency Qualified Code(s): D50.9 - Iron deficiency anemia, unspecified (8) Tobacco abuse Current Visit: No Status: Chronic Assessment and plan: Patient is still smoking. She is not interested in smoking cessation tools or materials at this time. We will revisit again prior to discharge. (9) DVT prophylaxis Current Visit: No Status: Acute Assessment and plan: Patient is anticoagulated with aspirin and Brilinta. Continue current treatment. - Time Spent With Patient less than 15 minutes - Subjective Interval history: Patient was seen and assessed at about 7:50 AM this morning. She was resting quietly in her bed. She still appears to be short of breath even at rest. She is able to speak, she is pleasant and alert and oriented. She says that she does not feel better today and states that she normally needs 3-4 days in the hospital to feel better before she goes home. She is still wearing 4 L of oxygen. She denies pain or complaints. She states that due to shortness of breath she has not been able to get up and move about her room. We will continue to monitor her and continue current treatment plan, as well as add albuterol treatments every 2 hours when necessary wheezing. - Constitutional Vitals: Temp Pulse Resp BP Pulse Ox 98.2 F 92 14 125/76 97 02/01/17 07:08 02/01/17 07:08 02/01/17 07:52 02/01/17 07:08 02/01/17 07:52 General appearance: Present: cachectic, cooperative, A&O X 3, pleasant, no acute distress, underweight, answers questions appropriately - Head Head exam: Present: normal inspection - Eye Eye exam: Present: normal appearance, conjuntiva pink - ENT ENT exam: Present: mucous membranes moist, normal exam, normal external ear exam - Neck Neck exam general surgery: Absent: lymphadenopathy, tenderness - Respiratory Respiratory exam: Present: decreased breath sounds, wheezes. Absent: chest wall tenderness, CTAB, rales, respiratory distress, rhonchi, tachypnea - Cardiovascular Cardiovascular exam: Present: RRR, +S1, +S2. Absent: diastolic murmur, systolic murmur - Expanded Cardiovascular Exam Peripheral pulses: 1+: Dorsalis Pedis (L) PM, Dorsalis Pedis (R) PM - GI/Abdominal GI/Abdominal exam: Present: normal bowel sounds. Absent: distended, firm, hepatomegaly, tenderness - Extremities Exam Extremities exam: Present: full ROM, normal inspection, warm, radial pulses palpable and symetrical. Absent: pedal edema, tenderness - Neurological Exam Neurological exam: Present: alert, oriented X3, no focal deficits. Absent: facial droop, speech deficit - Skin Skin exam: Present: dry, normal color, warm Internal Medicine: Result - Labs CBC & Chem 7: 02/01/17 03:30 02/01/17 03:30 Labs: Short CBC 02/01/17 Range/Units 03:30 WBC 5.9 (4.3-11.1) K/mcL Hgb 9.1 L (11.5-15.4) g/dL Hct 30.1 L (35.3-44.9) % Plt Count 277 (140-400) K/mcL Neutrophils # 5.5 (1.6-8.9) K/mcL BMP 02/01/17 03:30 Sodium 135 L Potassium 4.2 Chloride 101 Carbon Dioxide 27 BUN 18 Creatinine 0.74 Glucose 133 H Calcium 9.2 Consult Discharge Plan - Plan Referrals: Imtiaz Alicea [Primary Care Provider] -
[2017-02-02] MEDS: Ipratropium/Albuterol Neb 3 ML IH SCH ×8 (00:36→23:01)
[2017-02-02] MEDS: MethylPREDNISolone 40 MG/ML VIAL IVP SCH ×3 (01:24→18:04)
[2017-02-02] MEDS: *HR* Heparin 5,000 UNIT/ML VIAL SQ SCH ×2 (05:24→18:04)
[2017-02-02] MEDS: Levofloxacin 500 MG/100 ML 500 MG/100 ML BAG IVPB SCH (05:25)
[2017-02-02 06:44] LABS: Hematocrit 29.9 % (35.3-44.9); Immature Granulocytes % 0.8 % (0-4); Lymphocytes # 0.1 K/mcL (0.6-4.6); Mean Corpuscular HGB Conc 30.1 g/dL (31.6-35.5); Mean Corpuscular Hemoglobin 25.7 pg (28.0-33.3); Mean Corpuscular Volume 85.4 fL (83.0-100.0); Mean Platelet Volume 10.3 fL (9.4-12.4); Monocytes # 0.1 K/mcL (0.0-1.3); Platelet Count 281 K/mcL (140-400); Red Cell Distribution Width 17.1 % (11.5-14.5); Segmented Neutrophils % 95.2 %
[2017-02-02 06:54] LABS: BUN/Creatinine Ratio 31 (6-26); Blood Urea Nitrogen 24 mg/dL (7-20); Calcium 8.9 mg/dL (8.6-10.8); Carbon Dioxide 29 mEq/L (19-29); Chloride 101 mEq/L (98-109); Glucose 132 mg/dL (70-99); Osmolality,Calculated 292 (280-300); Potassium 3.8 mEq/L (3.5-4.5); Sodium 138 mEq/L (136-145); eGFR For African Americans > 60 (> 60); eGFR For Non-African Americans > 60 (> 60)
[2017-02-02 06:56] LABS: Neutrophils # 6.8 K/mcL (1.6-8.9)
[2017-02-02] MEDS: Budesonide/Formoterol 160/4.5 MDI IH SCH ×2 (07:34→19:48)
[2017-02-02 07:56] LABS: Platelet Estimate Normal (Normal)
[2017-02-02] MEDS: amLODIPine 5 MG TABLET PO SCH (09:01)
[2017-02-02] MEDS: Aspirin 81 MG TAB.CHEW PO SCH (09:01)
[2017-02-02] MEDS: Nicotine 21 MG PATCH.TD24 TD SCH (09:01)
[2017-02-02] MEDS: *HR* Ticagrelor 90 MG TABLET PO SCH ×2 (09:01→21:06)
[2017-02-02] MEDS: ALPRAZolam 0.25 MG TABLET PO PRN ×2 (09:10→21:06)
[2017-02-02] MEDS ORDERED: Morphine Oral CONC 5 MG/0.25 ML ORAL.SYG PO PRN (11:33)
--- NOTE | 2017-02-02 11:36 | Palliative - Consult Note ---
Date of Encounter: 02/02/17 Time of Encounter: 11:34 - Assessment and Plan (1) Dyspnea Current Visit: Yes Status: Chronic Assessment and plan: Discussed case with hospitalist. Will start oral morphine concentrate as needed for dyspnea. Discussed risks/benefits/indications for opioid use and patient verbalizes acceptance of the risks. Update at 2:15- Ms. Mckeon responded well to oral morphine concentrate. She reports is "takes the edge off", and was able to carry on a 30 min conversation. Will increase frequency to every 2 hours as needed. Qualifiers: Dyspnea type: other forms of dyspnea Qualified Code(s): R06.09 - Other forms of dyspnea (2) Goals of care, counseling/discussion Current Visit: Yes Status: Acute Assessment and plan: Discussed goals of care including code status and prison plan of care. Reviewed hospice philosophy and benefits. Ms. Mckeon requests time to process information. Will return later today to evaluate response to treatment and follow up on hospice conversation. Update: Follow-up conversation with Ms. Mckeon at 2:15. She reports the oral morphine concentrate "takes the edge off" of her dyspnea. Her respirations are easy with minimal conversational dyspnea. Ms. Mckeon is lying in bed and held a 30 min conversation with ease. Upon arrival, Ms. Mckeon informed me that she has decided to "go with hospice". We once again reviewed the hospice philosophy and benefits (nursing support, DME, nursing assistants, etc.). We reviewed medications and treatment plan of care. Ms. Mckeon would benefit from an extended prednisone taper and consider daily low dose prednisone. We discussed code status, and Ms. Mckeon elected to change code status to DNR-CC. State form was completed and placed on her chart. She is still deciding on her hospice of choice. volunteer services director following. Will follow-up tomorrow. (3) Anxiety Current Visit: Yes Status: Chronic Assessment and plan: Alprazolam 0.25mg TID as needed. (4) Acute exacerbation of chronic obstructive pulmonary disease (COPD) Current Visit: No Status: Acute Palliative-CN HPI - Data of Consult Patient: new to practice Consult date: 02/02/17 Requesting Physician: Patsy Licea Primary Care Provider: Imtiaz Alicea - Consult Narrative Palliative Care/Comfort Measures: Palliative care Reason for consult: Goals of care History of present illness: Ms. Mckeon is a 66 year old female presenting with progressive shortness of breath for 4 days. She has a history of COPD and wears oxygen at 4 L/min. Ms. Mckeon denies fever, and she has a chronically productive cough. She was admitted for further work-up and treatment. This is her 8th hospitalization in the past year with 2 ED visits. Four of those admissions occurred in the past 5 months. Ms. Mckeon reports a steady decline in her health over the past year. She was smoking up to 2 packs per day last year, but has reduced to 1/2 ppd due to difficulty breathing. Ms. Mckeon's physical activity is severely limited by her dyspnea, and she struggles to get to the bedside commode. She states, "I don't do anything" when questioned about her daily activities. She sits in a tripod position for better air movement and rarely lays down. Ms. Mckeon reports an average of 3 hours of broken sleep throughout the night. She has not had changes in her weight due to the frequency of steroid use. CC: Patsy Licea Past Med Surg Social Fam HX - Past Medical History Attestation: Yes The following information was validated with the patient. Source: patient Medical history: aortic aneurysm, asthma, cancer, COPD, coronary artery disease , GI bleed, hypertension, other Psychiatric history: anxiety - Past Surgical History Surgical History: appendectomy, cancer surgery, cholecystectomy, SHERICE/BSO, other - Social History Smoking Status: Current every day smoker Packs per day: less than half a pack Smokeless Tobacco Status: No Alcohol use: none Drug use: none Occupational status: disabled Current living situation: Home, With Family Activity Level: Mostly sedentary - Family History Mother Adopted: No Living Status: Hx Family Cardiac Disorders: No Hx Family Respiratory Disorders: Yes (COPD) Hx Family Cancer: No Hx Family GI Disorders: No Hx Family Endocrine Disorder: No Hx Family Neuromuscular Disorders: No Hx Family Neurologic Disorders: No Hx Family HEENT Disorders: No Hx Family Autoimmune Disorders: No Father Adopted: No Living Status: Hx Family Cardiac Disorders: No Hx Family Respiratory Disorders: No Hx Family Cancer: No Hx Family GI Disorders: No Hx Family Endocrine Disorder: No Hx Family Neuromuscular Disorders: No Hx Family Neurologic Disorders: No Hx Family HEENT Disorders: No Hx Family Autoimmune Disorders: No Sister Adopted: No Living Status: Still Living Hx Family Cardiac Disorders: No Hx Family Respiratory Disorders: No Hx Family Cancer: No Hx Family GI Disorders: No Hx Family Endocrine Disorder: No Hx Family Neuromuscular Disorders: No Hx Family Neurologic Disorders: Yes (MS) Hx Family HEENT Disorders: No Hx Family Autoimmune Disorders: No Brother Adopted: No Living Status: Still Living Hx Family Cardiac Disorders: No Hx Family Respiratory Disorders: No Hx Family Cancer: No Hx Family GI Disorders: No Hx Family Endocrine Disorder: No Hx Family Neuromuscular Disorders: No Hx Family Neurologic Disorders: No Hx Family HEENT Disorders: No Hx Family Autoimmune Disorders: No Medications and Allergies Ipratropium/Albuterol Sulfate [Combivent Respimat Inhal [place]] 2 puff IH Q6H 01/13 [History] Metoprolol [Lopressor] 25 mg PO BID 03/05/16 [History] Ticagrelor [Brilinta] 90 mg PO BID #30 tablet 05/10/16 [Rx] amLODIPine [Norvasc] 5 mg PO DAILY #30 tablet 05/10/16 [Rx] Albuterol Sulfate [Albuterol Inhaler] 2 puff IH Q4H PRN 09/22/16 [History] Aspirin 81 mg PO DAILY 09/22/16 [History] Potassium Chloride 10 meq PO DAILY 09/22/16 [History] Saline Nasal [place] [[place] Nasal [place]] 2 spray NS Q2H PRN #0 bottle 09/27/16 [Rx ] Levothyroxine [Synthroid] 50 mcg PO QAM 11/18/16 [History] ALPRAZolam [Xanax 0.25 MG Tablet] 0.25 mg PO TID PRN #20 tablet 11/22/16 [Rx] Losartan Potassium [Cozaar] 100 mg PO DAILY 01/02/17 [History] Ibuprofen [Motrin] 400 - 600 mg PO Q6HR PRN 02/01/17 [History] Ipratropium/Albuterol Neb [Duoneb] 3 ml IH Q4HR PRN 02/01/17 [History] Allergies clopidogrel [From Plavix] Allergy (Verified 01/01/17 14:48) Itching codeine Allergy (Verified 01/01/17 14:48) Itching All systems: reviewed and no additional remarkable complaints except as stated Palliative Care-Exam - Constitutional Vitals: Temp Pulse Resp BP Pulse Ox 98.6 F 103 18 145/81 95 02/02/17 10:36 02/02/17 10:36 02/02/17 11:11 02/02/17 10:36 02/02/17 11:11 General appearance: Present: thin Exam: 66 year old female in visible distress related to dyspnea. She is sitting on the side of the bed in a tripod position with pursed lip breathing. She is cachectic. - Head Head Exam: Present: atraumatic - Eye Eye exam: Present: EOMI Pupils: Present: PERRL - ENT ENT exam: Present: mucous membranes dry - Respiratory Respiratory exam: Present: accessory muscle use, prolonged expiratory phase ( tripod position with pursed lip breathing), respiratory distress, wheezes ( audible) - Cardiovascular Cardiovascular exam: Present: RRR, tachycardia (rate 120) - GI/Abdominal Exam GI/Abdominal exam: Present: normal bowel sounds, soft. Absent: tenderness - Rectal Rectal exam: Present: deferred - Extremities Exam Extremities exam: Absent: pedal edema - Neurological Exam Neurological exam: Present: alert, oriented X3, no focal deficits, strengths equal and symetr throughout - Psychiatric Psychiatric exam: Present: agitated, anxious - Skin Skin exam: Present: dry, warm. Absent: cyanosis, diaphoretic Internal Medicine - CN: Reslt - Labs CBC & Chem 7: 02/02/17 05:45 02/02/17 05:45 Labs: Short CBC 02/02/17 Range/Units 05:45 WBC 7.1 (4.3-11.1) K/mcL Hgb 9.0 L (11.5-15.4) g/dL Hct 29.9 L (35.3-44.9) % Plt Count 281 (140-400) K/mcL Neutrophils # 6.8 (1.6-8.9) K/mcL BMP 02/02/17 05:45 Sodium 138 Potassium 3.8 Chloride 101 Carbon Dioxide 29 BUN 24 H Creatinine 0.78 Glucose 132 H Calcium 8.9 Consult Discharge Plan - Plan Referrals: Imtiaz Alicea [Primary Care Provider] - 02/09/17 10:00 am Palliative Quality Palliative Quality: Screen for Code Status: Yes, Screen for Goals of Care: Yes, Screen for Pain: Yes, If Pain Regimen Started, Initiate Bowel Regimen: Yes, Screen for Nausea/Vomitting: Yes
[2017-02-02] MEDS: Morphine Oral CONC 5 MG/0.25 ML ORAL.SYG PO PRN ×2 (16:00→21:07)
--- NOTE | 2017-02-02 20:01 | Internal Med Progress Note ---
Date of Encounter: 02/02/17 Time of Encounter: 19:59 - Assessment and plan (1) Acute exacerbation of chronic obstructive pulmonary disease (COPD) Current Visit: No Status: Acute (2) Hypertension Current Visit: No Status: Chronic Qualifiers: Hypertension type: essential hypertension Qualified Code(s): I10 - Essential (primary) hypertension (3) DVT prophylaxis Current Visit: No Status: Acute (4) Tobacco abuse Current Visit: No Status: Chronic (5) Anxiety Current Visit: Yes Status: Chronic - Subjective Interval history: Miss Yessy Carlos is 66-year-old female who unfortunately still smokes. She is admitted with COPD exacerbation. She uses 2 L of oxygen at home and currently she is at the same level. He can talk in full sentences and ambulating. According to her she has a stage IV COPD I encouraged her to quit his smoking and provided necessary counseling. Seems like the treatment we are providing reasonably good result patient was feeling little anxious and some morphine was given which helped her. Resume the pressure medication and monitor blood pressure daily labwork reviewed and there is no need to repeat it. - Constitutional Vitals: Temp Pulse Resp BP Pulse Ox 98.4 F 91 19 125/62 98 02/02/17 18:46 02/02/17 18:46 02/02/17 19:48 02/02/17 18:46 02/02/17 19:48 General appearance: Present: cachectic, cooperative, A&O X 3, pleasant, no acute distress, underweight, answers questions appropriately - Head Head exam: Present: atraumatic, normocephalic - Eye Eye exam: Present: PERRL, conjuntiva pink, sclera anicteric Pupils: Present: PERRL - Neck Neck exam general surgery: Present: supple, trachea midline. Absent: lymphadenopathy - Respiratory Respiratory exam: Present: decreased breath sounds, prolonged expiratory phase, wheezes. Absent: accessory muscle use, rales, rhonchi Additional comments: Chest examination shows bilateral symmetrical movement however on the left side there is more wheezing and breath sounds are shallow with prolonged expiratory phase and right side seems better. In any case I did not hear any rhonchi or rales - Cardiovascular Cardiovascular exam: Present: RRR, +S1, +S2. Absent: diastolic murmur, gallop, rubs, systolic murmur - GI/Abdominal GI/Abdominal exam: Present: normal bowel sounds, soft, no peritoneal signs. Absent: distended, tenderness - Extremities Exam Extremities exam: Present: warm, radial pulses palpable and symetrical. Absent : calf tenderness, cyanotic, pedal edema - Neurological Exam Neurological exam: Present: CN II-XII intact, oriented X3, no focal deficits. Absent: pronater drift, facial droop, speech deficit - Skin Skin exam: Present: dry, intact Internal Medicine: Result - Labs CBC & Chem 7: 02/02/17 05:45 02/02/17 05:45 Labs: Short CBC 02/02/17 Range/Units 05:45 WBC 7.1 (4.3-11.1) K/mcL Hgb 9.0 L (11.5-15.4) g/dL Hct 29.9 L (35.3-44.9) % Plt Count 281 (140-400) K/mcL Neutrophils # 6.8 (1.6-8.9) K/mcL BMP 02/02/17 05:45 Sodium 138 Potassium 3.8 Chloride 101 Carbon Dioxide 29 BUN 24 H Creatinine 0.78 Glucose 132 H Calcium 8.9 Consult Discharge Plan - Plan Referrals: Imtiaz Alicea [Primary Care Provider] - 02/09/17 10:00 am
[2017-02-03] MEDS: methylPREDNISolone 125 MG/2 ML VIAL IVP SCH ×2 (01:19→08:47)
[2017-02-03] MEDS: Ipratropium/Albuterol Neb 3 ML IH SCH ×3 (03:21→13:05)
[2017-02-03] MEDS: *HR* Heparin 5,000 UNIT/ML VIAL SQ SCH (06:09)
[2017-02-03] MEDS: Levofloxacin 500 MG/100 ML 500 MG/100 ML BAG IVPB SCH (06:10)
[2017-02-03 08:19] VITALS: BP 128/78
[2017-02-03] MEDS: Nicotine 21 MG PATCH.TD24 TD SCH (08:48)
[2017-02-03] MEDS: *HR* Ticagrelor 90 MG TABLET PO SCH (08:49)
[2017-02-03] MEDS: amLODIPine 5 MG TABLET PO SCH (08:50)
[2017-02-03] MEDS: Aspirin 81 MG TAB.CHEW PO SCH (08:51)
--- NOTE | 2017-02-03 10:04 | Palliative Progress Note ---
Date of Encounter: 02/03/17 Time of Encounter: 10:04 - Assessment and plan (1) Dyspnea Current Visit: Yes Status: Chronic Assessment and plan: Ms. Mckeon has used 2 doses of oral morphine concentrate with improvement in dyspnea. She reports great improvement in breathing. Recommend extended taper of steroids and consideration of daily prednisone therapy upon completion of steroid taper. Rx completed for oral morphine concentrate and faxed to pharmacy. Qualifiers: Dyspnea type: other forms of dyspnea Qualified Code(s): R06.09 - Other forms of dyspnea (2) Goals of care, counseling/discussion Current Visit: Yes Status: Acute Assessment and plan: Ms. Mckeon will be discharged home today with a consult to [facility] (to enroll today). State DNR form was completed yesterday. Ms. Mckeon verbalizes understanding of hospice philosophy. (3) Anxiety Current Visit: Yes Status: Chronic Assessment and plan: Continue with alprazolam every 6 hours as needed. OARRS report reviewed. Rx completed and faxed to pharmacy. (4) Acute exacerbation of chronic obstructive pulmonary disease (COPD) Current Visit: No Status: Acute - Time Spent With Patient Total time spent is greater than 50% in coordination of care (as documented) at patient's floor/unit and/or counseling patient: - Subjective Interval history: Ms. Mckeon is sitting up in bed. She reports a "record" amount of sleep at 4.5 hours last night. She reports improvement in shortness of breath. - Constitutional Vitals: Abnormal lab results RBC 3.50 M/mcL (3.82-4.97) L 02/02/17 05:45 Hgb 9.0 g/dL (11.5-15.4) L 02/02/17 05:45 Hct 29.9 % (35.3-44.9) L 02/02/17 05:45 MCH 25.7 pg (28.0-33.3) L 02/02/17 05:45 MCHC 30.1 g/dL (31.6-35.5) L 02/02/17 05:45 RDW 17.1 % (11.5-14.5) H 02/02/17 05:45 Lymphocytes # 0.1 K/mcL (0.6-4.6) L 02/02/17 05:45 Hypochromasia Present (Not Present) A 02/01/17 03:30 Anisocytosis 1+ (Not Present) A 02/01/17 03:30 BUN 24 mg/dL (7-20) H 02/02/17 05:45 BUN/Creatinine Ratio 31 (6-26) H 02/02/17 05:45 Glucose 132 mg/dL (70-99) H 02/02/17 05:45 TSH 72.911 mcIU/mL (0.350-4.840) H 01/31/17 02:45 Free T4 0.51 ng/dl (0.70-1.48) L 02/01/17 03:30 General appearance: Present: cooperative, no acute distress Exam: 66 year old female appearing older than stated age. Smiling and interactive sitting up in bed. Eager to be discharged home today. - Eye Eye exam: Present: EOMI, PERRL - Respiratory Respiratory exam: Present: wheezes. Absent: accessory muscle use, respiratory distress, tachypnea - Cardiovascular Cardiovascular exam: Present: RRR - GI/Abdominal GI/Abdominal exam: Present: soft. Absent: distended, firm, guarding, tenderness - Extremities Exam Extremities exam: Present: normal inspection. Absent: pedal edema - Neurological Exam Neurological exam: Present: alert, oriented X3, no focal deficits, strengths equal and symetr throughout - Psychiatric Psychiatric exam: Absent: agitated, anxious - Skin Skin exam: Present: dry, warm Palliative Quality Palliative Quality: Screen for Code Status: Yes, Screen for Goals of Care: Yes, Screen for Pain: Yes, If Pain Regimen Started, Initiate Bowel Regimen: Yes, Screen for Nausea/Vomitting: Yes Code Status: 01/31/17 05:44 Resuscitation Status: Active [RES] Routine Comment: Resuscitation Status: DNR-Comfort Care - Labs CBC & Chem 7: 02/02/17 05:45 02/02/17 05:45 Consult Discharge Plan - Plan Referrals: Imtiaz Alicea [Primary Care Provider] - 02/09/17 10:00 am Prescriptions: ALPRAZolam [Xanax 0.25 MG Tablet] 0.25 mg PO Q6HR PRN #15 tablet PRN Reason: Anxiety ALPRAZolam [Xanax 0.25 MG Tablet] 0.25 mg PO TID PRN #20 tablet PRN Reason: Anxiety Morphine Oral CONC [Roxanol] 0.25 - 0.5 ml PO Q2H PRN #30 ml PRN Reason: pain or shortness of breath
[2017-02-03] MEDS: Morphine Oral CONC 5 MG/0.25 ML ORAL.SYG PO PRN ×2 (10:13→12:57)
[2017-02-03] MEDS: ALPRAZolam 0.25 MG TABLET PO PRN ×2 (10:13→12:56)
--- NOTE | 2017-02-03 11:08 | Discharge Summary ---
Date of Encounter: 02/03/17 Time of Encounter: 10:53 - Discharge Diagnosis (1) Acute exacerbation of chronic obstructive pulmonary disease (COPD) Priority: Primary Status: Acute (2) Hypertension Priority: Secondary Status: Chronic Qualifiers: Hypertension type: essential hypertension Qualified Code(s): I10 - Essential (primary) hypertension (3) DVT prophylaxis Priority: Secondary Status: Acute (4) Tobacco abuse Priority: Secondary Status: Chronic (5) Anxiety Priority: Secondary Status: Chronic (6) Hypothyroidism Priority: Secondary Status: Acute Qualifiers: Qualified Code(s): E03.9 - Hypothyroidism, unspecified - Discharge Medications Prescriptions: ALPRAZolam [Xanax 0.25 MG Tablet] 0.25 mg PO Q6HR PRN #15 tablet PRN Reason: Anxiety ALPRAZolam [Xanax 0.25 MG Tablet] 0.25 mg PO TID PRN #20 tablet PRN Reason: Anxiety Doxycycline Monohydrate 100 mg PO BID #20 tablet Ferrous Sulfate 325 mg PO TIDWM #90 tablet GuaiFENesin ER [Mucinex] 600 mg PO BID #20 tbbp.12hr Levothyroxine [Synthroid] 100 mcg PO QAM #30 tablet Morphine Oral CONC [Roxanol] 0.25 - 0.5 ml PO Q2H PRN #30 ml PRN Reason: pain or shortness of breath predniSONE [PredniSONE] 10 mg PO DAILY #90 tablet Home Medications: Ipratropium/Albuterol Sulfate [Combivent Respimat Inhal [place]] 2 puff IH Q6H 01/13 [History] Metoprolol [Lopressor] 25 mg PO BID 03/05/16 [History] Ticagrelor [Brilinta] 90 mg PO BID #30 tablet 05/10/16 [Rx] amLODIPine [Norvasc] 5 mg PO DAILY #30 tablet 05/10/16 [Rx] Albuterol Sulfate [Albuterol Inhaler] 2 puff IH Q4H PRN 09/22/16 [History] Aspirin 81 mg PO DAILY 09/22/16 [History] Potassium Chloride 10 meq PO DAILY 09/22/16 [History] Saline Nasal [place] [[place] Nasal [place]] 2 spray NS Q2H PRN #0 bottle 09/27/16 [Rx ] Losartan Potassium [Cozaar] 100 mg PO DAILY 01/02/17 [History] Ibuprofen [Motrin] 400 - 600 mg PO Q6HR PRN 02/01/17 [History] Ipratropium/Albuterol Neb [Duoneb] 3 ml IH Q4HR PRN 02/01/17 [History] ALPRAZolam [Xanax 0.25 MG Tablet] 0.25 mg PO Q6HR PRN #15 tablet 02/03/17 [Rx] ALPRAZolam [Xanax 0.25 MG Tablet] 0.25 mg PO TID PRN #20 tablet 02/03/17 [Rx] Acetaminophen [Tylenol] 650 mg PO Q6HR PRN #0 tablet 02/03/17 [Rx] Doxycycline Monohydrate 100 mg PO BID #20 tablet 02/03/17 [Rx] Ferrous Sulfate 325 mg PO TIDWM #90 tablet 02/03/17 [Rx] GuaiFENesin ER [Mucinex] 600 mg PO BID #20 tbbp.12hr 02/03/17 [Rx] Levothyroxine [Synthroid] 100 mcg PO QAM #30 tablet 02/03/17 [Rx] Morphine Oral CONC [Roxanol] 0.25 - 0.5 ml PO Q2H PRN #30 ml 02/03/17 [Rx] Nicotine Patch [Nicoderm] 21 mg TD DAILY patch.td24 02/03/17 [Rx] Ondansetron ODT [Zofran ODT] 4 mg SL Q8HR PRN #0 tab.rapdis 02/03/17 [Rx] predniSONE [PredniSONE] 10 mg PO DAILY #90 tablet 02/03/17 [Rx] Allergies/Adverse Reactions: Allergies clopidogrel [From Plavix] Allergy (Verified 01/01/17 14:48) Itching codeine Allergy (Verified 01/01/17 14:48) Itching Date of admission: 02/01/17 13:28 Primary care physician: Imtiaz Alicea Consults: 02/01/17 18:14 Consult to Palliative Care [CONS] Routine Comment: Consulting Provider: Palliative Care [facility]aley Reason for Consult: Pt would like to discuss options or end stage COPD Call Completed: No 02/01/17 18:15 Consult to Nutrition [CONS] Routine Comment: Consulting Provider: NUTRITION Reason for Dietary Consult: Diet Education Discharging clinician: Leatha Garcia Anticipated date of discharge: 02/03/17 - Patient Status Disposition: Home Health Service Overall status at discharge: patient is progressing back to baseline - Discharge Instructions Follow Up With: Imtiaz Alicea [Primary Care Provider] - 02/09/17 10:00 am - Diet and Activity Activity: resume usual activities as tolerated Diet: advance to your usual diet, diabetic diet, low fat, low cholesterol, low salt diet Hospital course: Miss Yessy Carlos is 66-year-old female who unfortunately still smokes. She is admitted with COPD exacerbation. She uses 2 L of oxygen at home and currently she is at the same level. SHe can talk in full sentences and ambulating. According to her she has a stage IV COPD. I encouraged her to quit his smoking and provided necessary counseling. Seems like the treatment we are providing reasonably good result. This morning lung sounds much clearer and only scattered wheezing. She was to go home. She is on 3 L oxygen and seems to be doing very well and this is her baseline. Palliative care has been involved and they will be providing some comfort measures at home. Her TSH level is noted 72 therefore I will double her Synthyroid and advised to reach check TSH in 30 days. She does not have any symptoms of myxedema though. SHe will be discharged on oral doxycycline over the steroids nebulizers which she does have her at home and Mucinex. - Time Spent with Patient Total time spent providing and/or coordinating discharge services: Greater than 30 minutes - Constitutional Vitals: Temp Pulse Resp BP Pulse Ox 97.6 F 76 16 128/78 99 02/03/17 08:18 02/03/17 08:18 02/03/17 08:18 02/03/17 08:18 02/03/17 08:18 General appearance: Present: cachectic, cooperative, A&O X 3, pleasant, no acute distress, underweight, answers questions appropriately - Head Head exam: Present: atraumatic, normocephalic - Eye Eye exam: Present: PERRL, conjuntiva pink, sclera anicteric Pupils: Present: PERRL - Neck Neck exam general surgery: Present: supple, trachea midline. Absent: lymphadenopathy - Respiratory Respiratory exam: Present: CTAB. Absent: accessory muscle use, rales, rhonchi, wheezes Additional comments: Bilateral breath sounds with good symmetrical movement reduced wheezing only scattered at the breast but otherwise airflow to the lungs is very good. - Cardiovascular Cardiovascular exam: Present: RRR, +S1, +S2. Absent: diastolic murmur, gallop, rubs, systolic murmur - GI/Abdominal GI/Abdominal exam: Present: normal bowel sounds, soft, no peritoneal signs. Absent: distended, tenderness - Extremities Exam Extremities exam: Present: warm, radial pulses palpable and symetrical. Absent : calf tenderness, cyanotic, pedal edema - Neurological Exam Neurological exam: Present: CN II-XII intact, oriented X3, no focal deficits. Absent: pronater drift, facial droop, speech deficit - Skin Skin exam: Present: dry, intact
--- NOTE | 2017-02-03 11:17 | Physician Discharge Referral ---
Home Health/Hosp Referral Info Transfer to: Home Health, Hospice Attending Provider: LUDA Provider in Charge Post Discharge: PCP (Palliative care for stage IV COPD) - Diagnosis (1) Acute exacerbation of chronic obstructive pulmonary disease (COPD) Status: Acute (2) Hypertension Status: Chronic (3) DVT prophylaxis Status: Acute (4) Tobacco abuse Status: Chronic (5) Anxiety Status: Chronic (6) Hypothyroidism Status: Acute - Respiratory Orders Smoking Cessation: Smoking cessation has been advised. For more information, call the [place] Tobacco Quit Line at 8-351-ADCI-NOW. - Transfer Medications Prescriptions: ALPRAZolam [Xanax 0.25 MG Tablet] 0.25 mg PO Q6HR PRN #15 tablet PRN Reason: Anxiety ALPRAZolam [Xanax 0.25 MG Tablet] 0.25 mg PO TID PRN #20 tablet PRN Reason: Anxiety Doxycycline Monohydrate 100 mg PO BID #20 tablet Ferrous Sulfate 325 mg PO TIDWM #90 tablet GuaiFENesin ER [Mucinex] 600 mg PO BID #20 tbbp.12hr Levothyroxine [Synthroid] 100 mcg PO QAM #30 tablet Morphine Oral CONC [Roxanol] 0.25 - 0.5 ml PO Q2H PRN #30 ml PRN Reason: pain or shortness of breath predniSONE [PredniSONE] 10 mg PO DAILY #90 tablet Home Medications: Ipratropium/Albuterol Sulfate [Combivent Respimat Inhal [place]] 2 puff IH Q6H 01/13 [History] Metoprolol [Lopressor] 25 mg PO BID 03/05/16 [History] Ticagrelor [Brilinta] 90 mg PO BID #30 tablet 05/10/16 [Rx] amLODIPine [Norvasc] 5 mg PO DAILY #30 tablet 05/10/16 [Rx] Albuterol Sulfate [Albuterol Inhaler] 2 puff IH Q4H PRN 09/22/16 [History] Aspirin 81 mg PO DAILY 09/22/16 [History] Potassium Chloride 10 meq PO DAILY 09/22/16 [History] Saline Nasal [place] [[place] Nasal [place]] 2 spray NS Q2H PRN #0 bottle 09/27/16 [Rx ] Losartan Potassium [Cozaar] 100 mg PO DAILY 01/02/17 [History] Ibuprofen [Motrin] 400 - 600 mg PO Q6HR PRN 02/01/17 [History] Ipratropium/Albuterol Neb [Duoneb] 3 ml IH Q4HR PRN 02/01/17 [History] ALPRAZolam [Xanax 0.25 MG Tablet] 0.25 mg PO Q6HR PRN #15 tablet 02/03/17 [Rx] ALPRAZolam [Xanax 0.25 MG Tablet] 0.25 mg PO TID PRN #20 tablet 02/03/17 [Rx] Acetaminophen [Tylenol] 650 mg PO Q6HR PRN #0 tablet 02/03/17 [Rx] Doxycycline Monohydrate 100 mg PO BID #20 tablet 02/03/17 [Rx] Ferrous Sulfate 325 mg PO TIDWM #90 tablet 02/03/17 [Rx] GuaiFENesin ER [Mucinex] 600 mg PO BID #20 tbbp.12hr 02/03/17 [Rx] Levothyroxine [Synthroid] 100 mcg PO QAM #30 tablet 02/03/17 [Rx] Morphine Oral CONC [Roxanol] 0.25 - 0.5 ml PO Q2H PRN #30 ml 02/03/17 [Rx] Nicotine Patch [Nicoderm] 21 mg TD DAILY patch.td24 02/03/17 [Rx] Ondansetron ODT [Zofran ODT] 4 mg SL Q8HR PRN #0 tab.rapdis 02/03/17 [Rx] predniSONE [PredniSONE] 10 mg PO DAILY #90 tablet 02/03/17 [Rx] Allergies/Adverse Reactions: Allergies clopidogrel [From Plavix] Allergy (Verified 01/01/17 14:48) Itching codeine Allergy (Verified 01/01/17 14:48) Itching Certification: Further, I certify that my clinical findings support that this patient is homebound (i.e. absences from home require considerable and taxing effort and are for medical reasons or [employer] services or infrequently or short duration when for other reasons) because: Homebound Reason: Leaving home requires considerable and taxing effort due to condition, Severity of cardiac or pulmonary status limits activity tolerance Attestation: My signature below is to certify that this patient is under my care and that I, or nurse practitioner, or a physician's personal assistant working with me, has a face-to -face encounter with this patient.
[2017-02-03] MEDS: Budesonide/Formoterol 160/4.5 MDI IH SCH (12:29)
--- NOTE | 2017-02-04 07:20 | Event Note ---
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 Start: 02/03/2017 Hospice benefit. In: +90 days Palliative performance scale: 30% History: History of severe COPD with some breath at rest and conversation. Patient does not wish to have any further aggressive care, and given her level of breathlessness I believe These findings support a life expectancy of 6 months or less. I attest that I have compose the above narrative based on my review of the patient's medical records, and or on my examination of the patient. Pankaj Madden M.D. Associate medical sales. [facility]
== END 2017-02-03 15:24 | disposition hospice, home (50) | DRG 190 ==
LOC: EMEROO 01:54 → 3BNU 01:54
PROVIDERS: ADMIT Internal Medicine; ATTEND Nurse Practitioner Family